=== PATIENT | female | born 1935 | race Caucasian/White ===

== ENCOUNTER 2017-02-15 16:41 | Emergency (ER) | payer MEDICARE, BC ==
[2017-02-15 17:15] VITALS: BP 185/83
--- NOTE | 2017-02-15 17:46 | EDM.PDOC ---
ED HPI ENT - General Chief Complaint: ENT Problem Stated Complaint: SORE THROAT Time Seen by Provider: 02/15/17 17:00 Source of Information: Reports: Patient History Limitations: Reports: No limitations - History of Present Illness INITIAL COMMENTS - FREE TEXT/NARRATIVE: HISTORY AND PHYSICAL: History of present illness: [Patient comes to the emergency room complaining of sore throat, fever and chills. Her symptoms began suddenly yesterday and she feels as though she's worsened today. She's not had headache, earache, runny nose. She's had a mild cough but no sputum production. No body aches, abdominal pain, nausea or vomiting. Bowels and bladder are working normally no dysuria. She's not taken any medications for her symptoms.] Review of systems: As per history of present illness and below otherwise all systems reviewed and negative. Past medical history: As per history of present illness and as reviewed below otherwise noncontributory. Surgical history: As per history of present illness and as reviewed below otherwise noncontributory. Social history: No reported history of drug or alcohol abuse. Family history: As per history of present illness and as reviewed below otherwise noncontributory. Physical exam: HEENT: Atraumatic, normocephalic. She wears hearing aids. TMs are pearly fleming with mild effusions present bilaterally. Nares are patent and without erythema. mucous membranes moist. Posterior oropharynx is brightly erythematous and injected. There is no tonsillar swelling or exudate. No PND. neck supple, nontender. Mildly tender shotty anterior cervical lymph nodes noted. Lungs: Clear to auscultation, breath sounds equal bilaterally. Heart: S1S2, regular rate and rhythm. Abdomen: Soft, nondistended, nontender. Negative for masses or hepatosplenomegaly. Negative for costovertebral tenderness. Pelvis: Stable nontender. Genitourinary: Deferred. Rectal: Deferred. Extremities: Atraumatic, negative for cords or calf pain. No cyanosis or edema. Neurovascular unremarkable. Neuro: Awake, alert, oriented. Cranial nerves II through XII unremarkable.Motor and sensory unremarkable throughout. Exam nonfocal. Diagnostics: [Strep swab-negative.] Impression: [Acute pharyngitis] Plan: [Based on patient's presentation will treat with amoxicillin 500 mg twice a day for 7 days. Recommend she follow up with her PCP next week. Tylenol or ibuprofen as needed for discomfort. She is in agreement with today's plan. all questions are answered and concerns are addressed.] Definitive disposition and diagnosis as appropriate pending reevaluation and review of above. - Related Data Allergies/ADRs: Allergies Allergy/AdvReac Type Severity Reaction Status Date / Time No Known Allergies Allergy Verified 02/15/17 16:49 Home Meds: Home Meds Allopurinol [Zyloprim] 300 mg PO DAILY 08/31/16 [History] Amitriptyline HCl 75 mg PO BEDTIME 08/31/16 [History] Aspirin 81 mg PO BEDTIME 08/31/16 [History] Celecoxib 200 mg PO BEDTIME 08/31/16 [History] Losartan [Cozaar] 100 mg PO DAILY 08/31/16 [History] Verapamil [Calan SR] 180 mg PO DAILY 08/31/16 [History] metFORMIN [Glucophage XR] 500 mg PO BID 08/31/16 [History] Past Medical History - Past Health History Medical/Surgical History: Denies Medical/Surgical History HEENT History: Reports: Hard of hearing, Impaired vision Cardiovascular History: Reports: Hypertension Respiratory History: Reports: Other (see below) Other Respiratory History: pneumonia Gastrointestinal History: Reports: Colon polyp, Irritable bowel syndrome, Pancreatitis Genitourinary History: Reports: Other (see below) Other Genitourinary History: bladder infection 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: Polycystic Ovaries Musculoskeletal History: Reports: Fibromyalgia Endocrine/Metabolic History: Reports: Diabetes, type II - Infectious Disease History Infectious Disease History: Reports: Chicken pox, Measles, Mumps - Past Surgical History HEENT Surgical History: Reports: Cataract surgery, Tonsillectomy Respiratory Surgical History: Reports: None GI Surgical History: Reports: Colonoscopy Other Female Surgeries/Procedures: Removal of ovarian cyst Neurological Surgical History: Reports: Lumbar spine Musculoskeletal Surgical History: Reports: Other (see below) Other Musculoskeletal Surgeries/Procedures:: 2 back surgery Social & Family History - Family History Family Medical History: Noncontributory - Tobacco Use Smoking Status *Q: Never Smoker - Caffeine Use Caffeine Use: Reports: Coffee - Recreational Drug Use Recreational Drug Use: No ED ROS ENT - Review of Systems Review Of Systems: ROS reveals no pertinent complaints other than HPI. ED EXAM, ENT - Physical Exam Exam: See Below Course - Vital Signs Last Recorded V/S: Last Vital Signs Temp 100.3 F 02/15/17 16:50 Pulse 108 H 02/15/17 17:15 Resp 20 02/15/17 16:50 BP 185/83 H 02/15/17 17:15 Pulse Ox 94 L 02/15/17 16:50 - Orders/Labs/Meds Orders: Active Orders 24 hr Category Date Time Status CULTURE STREP A CONFIRMATION [] Stat Lab 02/15/17 17:00 Results STREP SCRN A RAPID W CULT CONF [] Stat Lab 02/15/17 17:00 Results Departure - Departure Time of Disposition: 17:45 Disposition: Home, Self-Care 01 Condition: good Clinical Impression: Pharyngitis Qualifiers: Pharyngitis/tonsillitis etiology: unspecified etiology Qualified Code(s): J02.9 - Acute pharyngitis, unspecified Instructions: Pharyngitis, [id number] Referrals: Devendra Johns DO [Primary Care Provider] - Forms: ED Department Discharge Additional Instructions: The following information is given to patients seen in the emergency department who are being discharged to home. This information is to outline your options for follow-up care. We provide all patients seen in our emergency department with a follow-up referral. The need for follow-up, as well as the timing and circumstances, are variable depending upon the specifics of your emergency department visit. If you don't have a primary care physician on staff, we will provide you with a referral. We always advise you to contact your personal physician following an emergency department visit to inform them of the circumstance of the visit and for follow-up with them and/or the need for any referrals to a consulting specialist. The emergency department will also refer you to a specialist when appropriate. This referral assures that you have the opportunity for follow-up care with a specialist. All of these measure are taken in an effort to provide you with optimal care, which includes your follow-up. Under all circumstances we always encourage you to contact your private physician who remains a resource for coordinating your care. When calling for follow-up care, please make the office aware that this follow-up is from your recent emergency room visit. If for any reason you are refused follow-up, please contact the [facility] emergency department at and asked to speak to the emergency department charge nurse. [facility] [address] [place] [id number] Followup with your primary care provider in 3-4 days. Take Tylenol or ibuprofen as needed for throat discomfort. Take antibiotics as prescribed. Return to the ER as needed and as discussed. - My Orders Last 24 Hours: My Active Orders 02/15/17 17:00 CULTURE STREP A CONFIRMATION [RM] Stat STREP SCRN A RAPID W CULT CONF [RM] Stat - Assessment/Plan Last 24 Hours: My Active Orders 02/15/17 17:00 CULTURE STREP A CONFIRMATION [RM] Stat STREP SCRN A RAPID W CULT CONF [RM] Stat
== END 2017-02-15 17:52 | disposition home or self-care (01) ==
LOC: MW.ED 16:41
DX: J02.9 Acute pharyngitis, unspecified (principal); I10 Essential (primary) hypertension; E11.9 Type 2 diabetes mellitus without complications; Z79.899 Other long term (current) drug therapy; Z98.49 Cataract extraction status, unspecified eye; Z98.890 Other specified postprocedural states
CPT/HCPCS: 87081; 87880; 99283

== ENCOUNTER → 2017-02-19 | Outpatient (CLI) | payer MEDICARE, BC | LOC: MW.CHIM 08:00 | PROVIDERS: ATTEND Internal Medicine | DX: J02.0 Streptococcal pharyngitis (principal); E11.9 Type 2 diabetes mellitus without complications; I10 Essential (primary) hypertension | CPT/HCPCS: G0463 ==

== ENCOUNTER → 2017-04-01 | Outpatient (CLI) | payer MEDICARE, BC | LOC: MW.CHIM 08:00 | PROVIDERS: ATTEND Internal Medicine | DX: F41.9 Anxiety disorder, unspecified (principal); E11.9 Type 2 diabetes mellitus without complications; I10 Essential (primary) hypertension; M54.16 Radiculopathy, lumbar region | CPT/HCPCS: 99214 ==

== ENCOUNTER 2019-03-19 18:06 | Observation (INO) | payer MEDICARE, BC ==
[2019-03-19] MEDS ORDERED: Sodium Chloride 0.9% 1,000 ML IV ONE (18:19)
--- NOTE | 2019-03-19 18:32 | EDM.PDOC ---
ED HPI GENERAL MEDICAL PROBLEM - General Chief Complaint: Trauma Stated Complaint: DIZZY Time Seen by Provider: 03/19/19 18:08 Source of Information: Reports: Patient, Family History Limitations: Reports: No Limitations - History of Present Illness INITIAL COMMENTS - FREE TEXT/NARRATIVE: HISTORY AND PHYSICAL: History of present illness: Patient is an 83-year-old female presents to the ED today after several falls that occurred throughout the day as well as generalized weakness. Patient states she did not hit her head or lose consciousness. Patient states she feels as if her legs are weak. Patient states the neighbor was with her when she had fallen and then helped her get inside her house where she had fallen again. Patient states with both falls she has not hit her head and just kind of "slumped to the ground." Patient states her only complaint at this time is that she feels this generalized weakness and slight dizziness. Patient denies any pain or discomfort at this time. Patient follows with her primary care provider , Dr. Bradley, who she just saw yesterday for an annual physical. Patient states she was diagnosed with a urinary tract infection and was placed on an antibiotic. Patient states she does have chronic left hip pain which is always bothersome to her. She states she is scheduled for replacement of her hip in a few weeks. Patient denies any head or neck pain. Patient denies fever, chills, chest pain, shortness of breath, or cough. Denies headache, neck stiff ness, change in vision, syncope, or near syncope. Denies nausea, vomiting, abdominal pain, diarrhea, constipation, or dysuria. Has not noted any blood in urine or stool. Patient has been eating and drinking appropriately. Review of systems: As per history of present illness and below otherwise all systems reviewed and negative. Past medical history: As per history of present illness and as reviewed below otherwise noncontributory. Surgical history: As per history of present illness and as reviewed below otherwise noncontributory. Social history: See social history for further information Family history: As per history of present illness and as reviewed below otherwise noncontributory. Physical exam: General: Patient is alert, oriented, and in no acute distress. Patient laying comfortably on exam table. Patient does answer questions appropriately but seems a little bit slow to response. HEENT: Atraumatic, normocephalic, pupils equal and reactive bilaterally, negative for conjunctival pallor or scleral icterus, mucous membranes moist, TMs normal bilaterally, throat clear, neck supple, nontender, trachea midline. No drooling or trismus noted. No meningeal signs. No hot potato voice noted. Lungs: Clear to auscultation, breath sounds equal bilaterally, chest nontender. Heart: S1S2, regular rate and rhythm without overt murmur Abdomen: Soft, nondistended, nontender. Negative for masses or hepatosplenomegaly. Negative for costovertebral tenderness. Pelvis: Stable nontender. Genitourinary: Deferred. Rectal: Deferred. Skin: Intact, warm, dry. No lesions or rashes noted. Extremities: Atraumatic, negative for cords or calf pain. Neurovascular unremarkable. Neuro: Awake, alert, oriented. Cranial nerves II through XII unremarkable. Cerebellum unremarkable. Motor and sensory unremarkable throughout. Exam nonfocal. Notes: Trauma alert was called upon arrival to the ED as patient has had falls and is on a baby aspirin. Dr. Jenkins directly involved in patient care. Dr. Pang was consult on patient and will admit to observation. Although patient was called as a trauma alert, she is cleared from a trauma perspective does need to be admitted for medical reasons. Dr. Bradley was informed on the patient but is not formally consulted from a trauma perspective. Voices understanding and is agreeable to plan of care. Denies any further questions or concerns at this time. Diagnostics: CBC, CMP, blood cultures 2, lactate, lipase, troponin, UA, orthostatic vitals, EKG, chest x-ray, head/cervical CT, pelvic x-ray Therapeutics: Saline, Rocephin Impression: Urinary tract infection Leukocytosis Frequent falls Plan: 1. Admit to observation to Dr. Pagn. Definitive disposition and diagnosis as appropriate pending reevaluation and review of above. Left Hip Pain Score (Numeric/FACES): 5 - Related Data Allergies Allergy/AdvReac Type Severity Reaction Status Date / Time No Known Allergies Allergy Verified 02/15/17 16:49 Home Meds: Home Meds Allopurinol [Zyloprim] 300 mg PO DAILY 08/31/16 [History] Amitriptyline HCl 75 mg PO BEDTIME 08/31/16 [History] Aspirin 81 mg PO BEDTIME 08/31/16 [History] Celecoxib 200 mg PO BEDTIME 08/31/16 [History] Losartan [Cozaar] 100 mg PO DAILY 08/31/16 [History] Verapamil [Calan SR] 180 mg PO DAILY 08/31/16 [History] metFORMIN [Glucophage XR] 500 mg PO BID 08/31/16 [History] ALPRAZolam [Alprazolam Odt] 0.25 mg PO DAILY 03/19/19 [History] Cholecalciferol (Vitamin D3) [Vitamin D3] 5,000 unit PO DAILY 03/19/19 [History] Omeprazole 20 mg PO ONETIME 03/19/19 [History] atorvaSTATin [Lipitor] 10 mg PO DAILY 03/19/19 [History] hydroCHLOROthiazide [Hydrochlorothiazide] 25 mg PO DAILY 03/19/19 [History] Past Medical History - Past Health History Medical/Surgical History: Denies Medical/Surgical History HEENT History: Reports: Hard of Hearing, Impaired Vision Cardiovascular History: Reports: Hypertension Respiratory History: Reports: Other (See Below) Other Respiratory History: pneumonia Gastrointestinal History: Reports: Colon Polyp, Irritable Bowel Syndrome, Pancreatitis Genitourinary History: Reports: Other (See Below) Other Genitourinary History: bladder infection 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: Polycystic 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 Musculoskeletal History: Reports: Fibromyalgia Endocrine/Metabolic History: Reports: Diabetes, Type II - Infectious Disease History Infectious Disease History: Reports: Chicken Pox, Measles, Mumps - Past Surgical History HEENT Surgical History: Reports: Cataract Surgery, Tonsillectomy Female Surgical History: Reports: Hysterectomy, Salpingo-Oophorectomy Neurological Surgical History: Reports: Lumbar Spine Musculoskeletal Surgical History: Reports: Other (See Below) Social & Family History - Family History Family Medical History: Noncontributory - Caffeine Use Caffeine Use: Reports: Coffee Review of Systems - Review of Systems Review Of Systems: ROS reveals no pertinent complaints other than HPI. ED EXAM, GENERAL - Physical Exam Exam: See Below (See dictation) Course - Vital Signs Last Recorded V/S: Last Vital Signs Temp 37.0 C 03/19/19 20:00 Pulse 104 H 03/19/19 20:00 Resp 18 03/19/19 19:46 BP 156/80 H 03/19/19 20:00 Pulse Ox 93 L 03/19/19 20:00 Orthostatic Blood Pressure [ 134/56 Standing] Orthostatic Blood Pressure [ 150/68 Sitting] Orthostatic Blood Pressure [ 150/66 Supine] - Orders/Labs/Meds Orders: Active Orders 24 hr Category Date Time Status Patient Status [ADT] Stat ADT 03/19/19 19:49 Active EKG Documentation Completion [RC] STAT Care 03/19/19 18:19 Active Orthostatic Vital Signs [RC] ASDIRECTED Care 03/19/19 18:22 Active CULTURE BLOOD [BC] Stat Lab 03/19/19 19:10 Received CULTURE BLOOD [BC] Stat Lab 03/19/19 19:10 Received CULTURE URINE [RM] Stat Lab 03/19/19 18:19 Received cefTRIAXone [Rocephin in Dextrose,Iso-Osm 1 GM/50 ML] 1 Med 03/19/19 19:45 Ordered gm Premix Bag 1 bag IV ONETIME Blood Culture x2 Reflex Set [OM.PC] Stat Oth 03/19/19 18:23 Ordered Medication Orders Ceftriaxone Sodium/Dextrose 1 (gm/ Premix) 50 mls @ 100 mls/hr IV ONETIME ONE Stop: 03/19/19 20:14 Last Admin: 03/19/19 19:52 Dose: 100 mls/hr Labs: Laboratory Tests 03/19/19 03/19/19 03/19/19 Range/Units 18:19 18:25 18:25 WBC 16.22 H (4.0-11.0) K/uL RBC 3.39 L (4.30-5.90) M/uL Hgb 12.1 (12.0-16.0) g/dL Hct 36.9 (36.0-46.0) % MCV 108.8 H (80.0-98.0) fL MCH 35.7 H (27.0-32.0) pg MCHC 32.8 (31.0-37.0) g/dL RDW Std Deviation 51.1 (28.0-62.0) fl RDW Coeff of Janeen 13 (11.0-15.0) % Plt Count 349 (150-400) K/uL MPV 9.60 (7.40-12.00) fL Neut % (Auto) 79.6 (48.0-80.0) % Lymph % (Auto) 12.1 L (16.0-40.0) % [place] % (Auto) 8.1 (0.0-15.0) % Eos % (Auto) 0.1 (0.0-7.0) % Baso % (Auto) 0.1 (0.0-1.5) % Neut # (Auto) 12.9 H (1.4-5.7) K/uL Lymph # (Auto) 2.0 (0.6-2.4) K/uL [place] # (Auto) 1.3 H (0.0-0.8) K/uL Eos # (Auto) 0.0 (0.0-0.7) K/uL Baso # (Auto) 0.0 (0.0-0.1) K/uL Nucleated RBC % 0.0 /100WBC Nucleated RBCs # 0 K/uL Lactate (0.20-2.00) mmol/L Sodium 132 L (136-145) mmol/L Potassium 3.8 (3.5-5.1) mmol/L Chloride 93 L (98-107) mmol/L Carbon Dioxide 26.8 (21.0-32.0) mmol/L BUN 39 H (7.0-18.0) mg/dL Creatinine 1.5 H (0.6-1.0) mg/dL Est Cr Clr Drug Dosing TNP Estimated GFR (MDRD) 33.3 ml/min Glucose 208 H (74-106) mg/dL Calcium 9.4 (8.5-10.1) mg/dL Total Bilirubin 0.2 (0.2-1.0) mg/dL AST 15 (15-37) IU/L ALT 25 (14-63) IU/L Alkaline Phosphatase 162 H (46-116) U/L Creatine Kinase 72 (26-308) U/L Troponin I < 0.050 (0.000-0.056) ng/mL Total Protein 8.2 (6.4-8.2) g/dL Albumin 3.3 L (3.4-5.0) g/dL Globulin 4.9 H (2.6-4.0) g/dL Albumin/Globulin Ratio 0.7 L (0.9-1.6) Lipase 228 (73-393) U/L Urine Color YELLOW Urine Appearance CLEAR Urine pH 5.5 (5.0-8.0) Ur Specific [place] <= 1.005 (1.001-1.035) Urine Protein NEGATIVE (NEGATIVE) mg/dL Urine Glucose (UA) NEGATIVE (NEGATIVE) mg/dL Urine Ketones NEGATIVE (NEGATIVE) mg/dL Urine Occult Blood NEGATIVE (NEGATIVE) Urine Nitrite NEGATIVE (NEGATIVE) Urine Bilirubin NEGATIVE (NEGATIVE) Urine Urobilinogen 0.2 (<2.0) EU/dL Ur Leukocyte Esterase MODERATE H (NEGATIVE) Urine RBC 1-3 (0-2/HPF) Urine WBC 12-30 (0-5/HPF) Ur Epithelial Cells OCCASIONAL (NONE-FEW) Urine Bacteria FEW (NEGATIVE) Urine Mucus FEW (NONE-MOD) 03/19/19 Range/Units 18:25 WBC (4.0-11.0) K/uL RBC (4.30-5.90) M/uL Hgb (12.0-16.0) g/dL Hct (36.0-46.0) % MCV (80.0-98.0) fL MCH (27.0-32.0) pg MCHC (31.0-37.0) g/dL RDW Std Deviation (28.0-62.0) fl RDW Coeff of Janeen (11.0-15.0) % Plt Count (150-400) K/uL MPV (7.40-12.00) fL Neut % (Auto) (48.0-80.0) % Lymph % (Auto) (16.0-40.0) % [place] % (Auto) (0.0-15.0) % Eos % (Auto) (0.0-7.0) % Baso % (Auto) (0.0-1.5) % Neut # (Auto) (1.4-5.7) K/uL Lymph # (Auto) (0.6-2.4) K/uL [place] # (Auto) (0.0-0.8) K/uL Eos # (Auto) (0.0-0.7) K/uL Baso # (Auto) (0.0-0.1) K/uL Nucleated RBC % /100WBC Nucleated RBCs # K/uL Lactate 1.7 (0.20-2.00) mmol/L Sodium (136-145) mmol/L Potassium (3.5-5.1) mmol/L Chloride (98-107) mmol/L Carbon Dioxide (21.0-32.0) mmol/L BUN (7.0-18.0) mg/dL Creatinine (0.6-1.0) mg/dL Est Cr Clr Drug Dosing Estimated GFR (MDRD) ml/min Glucose (74-106) mg/dL Calcium (8.5-10.1) mg/dL Total Bilirubin (0.2-1.0) mg/dL AST (15-37) IU/L ALT (14-63) IU/L Alkaline Phosphatase (46-116) U/L Creatine Kinase (26-308) U/L Troponin I (0.000-0.056) ng/mL Total Protein (6.4-8.2) g/dL Albumin (3.4-5.0) g/dL Globulin (2.6-4.0) g/dL Albumin/Globulin Ratio (0.9-1.6) Lipase (73-393) U/L Urine Color Urine Appearance Urine pH (5.0-8.0) Ur Specific [place] (1.001-1.035) Urine Protein (NEGATIVE) mg/dL Urine Glucose (UA) (NEGATIVE) mg/dL Urine Ketones (NEGATIVE) mg/dL Urine Occult Blood (NEGATIVE) Urine Nitrite (NEGATIVE) Urine Bilirubin (NEGATIVE) Urine Urobilinogen (<2.0) EU/dL Ur Leukocyte Esterase (NEGATIVE) Urine RBC (0-2/HPF) Urine WBC (0-5/HPF) Ur Epithelial Cells (NONE-FEW) Urine Bacteria (NEGATIVE) Urine Mucus (NONE-MOD) Meds: Medications Generic Name Dose Route Start Last Admin Trade Name Freq PRN Reason Stop Dose Admin Ceftriaxone Sodium/Dextrose 1 50 mls @ 100 mls/hr 03/19/19 19:45 03/19/19 19: 52 gm/ Premix IV 03/19/19 20:14 100 mls/hr ONETIME ONE Administration Discontinued Medications Generic Name Dose Route Start Last Admin Trade Name Freq PRN Reason Stop Dose Admin Sodium Chloride 1,000 mls @ 999 mls/hr 03/19/19 18:19 03/19/19 18:53 Normal Saline IV 03/19/19 19:19 999 mls/hr BOLUS ONE Administration Departure - Departure Time of Disposition: 20:04 Disposition: Refer to Observation Clinical Impression: Frequent falls Urinary tract infection Qualifiers: Urinary tract infection type: acute cystitis Hematuria presence: with hematuria Qualified Code(s): N30.01 - Acute cystitis with hematuria Leukocytosis Qualifiers: Leukocytosis type: other Qualified Code(s): D72.828 - Other elevated white blood cell count - Discharge Information - My Orders Last 24 Hours: My Active Orders 03/19/19 18:19 EKG Documentation Completion [RC] STAT CULTURE URINE [RM] Stat 03/19/19 18:22 Orthostatic Vital Signs [RC] ASDIRECTED 03/19/19 18:23 Blood Culture x2 Reflex Set [OM.PC] Stat 03/19/19 19:10 CULTURE BLOOD [BC] Stat CULTURE BLOOD [BC] Stat 03/19/19 19:45 cefTRIAXone [Rocephin in Dextrose,Iso-Osm 1 GM/50 ML] 1 gm Premix Bag 1 bag IV ONETIME - Assessment/Plan Last 24 Hours: My Active Orders 03/19/19 18:19 EKG Documentation Completion [RC] STAT CULTURE URINE [RM] Stat 03/19/19 18:22 Orthostatic Vital Signs [RC] ASDIRECTED 03/19/19 18:23 Blood Culture x2 Reflex Set [OM.PC] Stat 03/19/19 19:10 CULTURE BLOOD [BC] Stat CULTURE BLOOD [BC] Stat 03/19/19 19:45 cefTRIAXone [Rocephin in Dextrose,Iso-Osm 1 GM/50 ML] 1 gm Premix Bag 1 bag IV ONETIME
--- NOTE | 2019-03-19 18:57 | CT ---
INDICATION: Found down, probable LOC confusion TECHNIQUE: CT cervical spine without contrast. COMPARISON: None FINDINGS: Vertebral alignment: Alignment is normal. Vertebrae: There are no fractures or suspicious bony lesions. Discs and facet joints: Mild multilevel degenerative changes. Extraspinal findings: Prevertebral soft tissues, visualized airway, and visualized lungs are unremarkable. Calcified pleural plaques involving the lung apices. IMPRESSION: No evidence of acute cervical spine trauma. Mild multilevel degenerative changes. Bilateral calcified apical pleural plaques. Dictated by Simone Vallejo MD @ 03/19/2019 6:55:46 PM Please note that all CT scans at this facility use dose modulation, iterative reconstruction, and/or weight-based dosing when appropriate to reduce radiation dose to as low as reasonably achievable. Dictated by: Simone Vallejo MD @ 03/19/2019 18:55:51 (Electronically Signed)
--- NOTE | 2019-03-19 19:01 | CT ---
INDICATION: LOC, confusion TECHNIQUE: CT head without contrast. COMPARISON: None FINDINGS: CSF spaces: Within normal limits for age. Brain parenchyma: The fleming-white differentiation is normal. No sign of mass, hemorrhage, or midline shift. Periventricular white matter changes consistent chronic microvascular disease. Diffuse volume loss. Skull base and calvarium: The visualized paranasal sinuses and mastoid air cells demonstrate no acute or significant findings. The visualized orbits are grossly unremarkable. No skull fractures. IMPRESSION: No acute intracranial abnormality including no evidence of acute intracranial trauma. Periventricular white matter changes consistent chronic microvascular disease. Diffuse volume loss. Dictated by Simone Vallejo MD @ 03/19/2019 6:58:56 PM Please note that all CT scans at this facility use dose modulation, iterative reconstruction, and/or weight-based dosing when appropriate to reduce radiation dose to as low as reasonably achievable. Dictated by: Simone Vallejo MD @ 03/19/2019 18:59:27 (Electronically Signed)
--- NOTE | 2019-03-19 19:04 | CR ---
INDICATION: Left hip pain following fall TECHNIQUE: AP pelvis COMPARISON: 09/19/2018 FINDINGS: Bones: Alignment is normal. No fractures or bone lesions. Joint spaces: Significant narrowing and degenerative changes left hip joint with increase narrowing compared to 09/19/2018. Moderate degenerative changes right hip joint. Soft tissues: Unremarkable. IMPRESSION: No evidence of acute trauma. Significant narrowing degenerative changes left hip joint with increased narrowing compared to 09/19/2018. Dictated by Simone Vallejo MD @ Mar 19 2019 6:59PM Signed by Dr. Simone Vallejo @ Mar 19 2019 7:03PM
--- NOTE | 2019-03-19 19:06 | CR ---
INDICATION: fall TECHNIQUE: Chest 1 view. COMPARISON: 03/17/19 FINDINGS: Cardiovascular and mediastinum: Heart size and vasculature are normal in caliber and appearance. Mediastinum is within normal limits. Lungs and pleural space: Lungs are clear. No sign of infiltrate or mass. No sign of pleural effusion. No pneumothorax. Bones and soft tissues: No significant findings. IMPRESSION: Unremarkable chest. Dictated by: Simone Vallejo MD @ 03/19/2019 19:05:52 (Electronically Signed)
[2019-03-19 19:25] LABS: CHLORIDE,CL 93 mmol/L (98-107); SODIUM,NA 132 mmol/L (136-145)
[2019-03-19] MEDS ORDERED: cefTRIAXone 1 GM in Premix Bag 1 BAG IV ONE (19:45)
--- NOTE | 2019-03-19 19:53 | PCM.SN ---
- Free Text/Narrative Note: This is Dr. Jenkins dictating addendum note as this case was called as a trauma alert due to a fall with a patient taking baby aspirin. From a trauma perspective this patient has been cleared but we are still informed the trauma surgeon Dr. Khalil about this case although the patient needs to be admitted medically for her frequent falls and the etiology of that. She has a UTI she has generalized weakness in both clinical and laboratory dehydration and needs IV fluids and further evaluation of her frequent falls and her infectious source. Dr. Pang was contacted by the physician assistant manager trainee and he is accepting the patient for observation admission but would like Dr. Khalil to be informed of this case but not on formal consult. We will give him a call and inform him of this and change the admission from a traumatic injury admission to frequent falls/medical admission.
[2019-03-19] MEDS ORDERED: Sodium Chloride 0.9% 10 ML Syringe FLUSH PRN (22:08)
[2019-03-19] MEDS ORDERED: Sodium Chloride 0.9% 2.5 ML Syringe FLUSH PRN (22:08)
[2019-03-19] MEDS: Acetaminophen 325 MG Tab PO PRN (22:27)
--- NOTE | 2019-03-19 23:13 | PCM.HP ---
H&P History of Present Illness - General Date of Service: 03/19/19 Admit Problem/Dx: Admission Diagnosis/Problem Admission Diagnosis/Problem Falls - History of Present Illness Initial Comments - Free Text/Narative: 83 yo female with pmh of HTN and DM who presented to the ED with generalized weakness and dizziness. Patient reports have multiple falls. She also report dysuria. She denies loosing conciousness or hitting her head. Left Hip Pain Score (Numeric/FACES): 7 - Related Data Allergies/Adverse Reactions: Allergies Allergy/AdvReac Type Severity Reaction Status Date / Time No Known Allergies Allergy Verified 02/15/17 16:49 Home Medications: Home Meds Allopurinol [Zyloprim] 300 mg PO DAILY 08/31/16 [History] Amitriptyline HCl 75 mg PO BEDTIME 08/31/16 [History] Aspirin 81 mg PO BEDTIME 08/31/16 [History] Celecoxib 200 mg PO BEDTIME 08/31/16 [History] Losartan [Cozaar] 100 mg PO DAILY 08/31/16 [History] Verapamil [Calan SR] 180 mg PO DAILY 08/31/16 [History] metFORMIN [Glucophage XR] 500 mg PO BID 08/31/16 [History] ALPRAZolam [Alprazolam Odt] 0.25 mg PO DAILY 03/19/19 [History] Cholecalciferol (Vitamin D3) [Vitamin D3] 5,000 unit PO DAILY 03/19/19 [History] Omeprazole 20 mg PO ONETIME 03/19/19 [History] atorvaSTATin [Lipitor] 10 mg PO DAILY 03/19/19 [History] hydroCHLOROthiazide [Hydrochlorothiazide] 25 mg PO DAILY 03/19/19 [History] cephALEXin [Keflex] 500 mg PO BID #14 cap 03/22/19 [Rx] Past Medical History - Past Health History Medical/Surgical History: Denies Medical/Surgical History HEENT History: Reports: Hard of Hearing, Impaired Vision Cardiovascular History: Reports: Hypertension Respiratory History: Reports: Other (See Below) Other Respiratory History: pneumonia Gastrointestinal History: Reports: Colon Polyp, Irritable Bowel Syndrome, Pancreatitis Genitourinary History: Reports: Other (See Below) Other Genitourinary History: bladder infection SIGN BUILDER History: Reports: Polycystic Ovaries Musculoskeletal History: Reports: Fibromyalgia Endocrine/Metabolic History: Reports: Diabetes, Type II Immunologic History: Reports: None Oncologic (Cancer) History: Reports: None - Infectious Disease History Infectious Disease History: Reports: Chicken Pox, Measles, Mumps - Past Surgical History Head Surgeries/Procedures: Reports: None HEENT Surgical History: Reports: Cataract Surgery, Tonsillectomy Female Surgical History: Reports: Cystectomy, Hysterectomy, Salpingo- Oophorectomy Neurological Surgical History: Reports: Lumbar Spine Musculoskeletal Surgical History: Reports: Other (See Below) Social & Family History - Family History Family Medical History: Noncontributory - Tobacco Use Smoking Status *Q: Never Smoker Second Hand Smoke Exposure: No - Caffeine Use Caffeine Use: Reports: Coffee, Soda - Recreational Drug Use Recreational Drug Use: No H&P Review of Systems - Review of Systems: Review Of Systems: ROS reveals no pertinent complaints other than HPI. Exam - Exam Exam: See Below - Vital Signs Vital Signs: Last Vital Signs Temp 37.4 C 03/19/19 21:08 Pulse 116 H 03/19/19 21:08 Resp 16 03/19/19 21:08 BP 167/89 H 03/19/19 21:08 Pulse Ox 93 L 03/19/19 21:08 Orthostatic Blood Pressure [ 134/56 Standing] Orthostatic Blood Pressure [ 150/68 Sitting] Orthostatic Blood Pressure [ 150/66 Supine] Weight: 61 kg - Exam General: Alert, Oriented HEENT: Mucosa Moist & [place] Neck: Supple, Trachea Midline Lungs: Clear to Auscultation, Normal Respiratory Effort Cardiovascular: Regular Rate, Regular Rhythm GI/Abdominal Exam: Normal Bowel Sounds, Soft, Non-Tender Back Exam: Normal Inspection Extremities: Non-Tender, No Pedal Edema - Patient Data Lab Results Last 24 hrs: Laboratory Results - last 24 hr 03/19/19 03/19/19 03/19/19 Range/Units 18:19 18:25 18:25 WBC 16.22 H (4.0-11.0) K/uL RBC 3.39 L (4.30-5.90) M/uL Hgb 12.1 (12.0-16.0) g/dL Hct 36.9 (36.0-46.0) % MCV 108.8 H (80.0-98.0) fL MCH 35.7 H (27.0-32.0) pg MCHC 32.8 (31.0-37.0) g/dL RDW Std Deviation 51.1 (28.0-62.0) fl RDW Coeff of Janeen 13 (11.0-15.0) % Plt Count 349 (150-400) K/uL MPV 9.60 (7.40-12.00) fL Neut % (Auto) 79.6 (48.0-80.0) % Lymph % (Auto) 12.1 L (16.0-40.0) % [place] % (Auto) 8.1 (0.0-15.0) % Eos % (Auto) 0.1 (0.0-7.0) % Baso % (Auto) 0.1 (0.0-1.5) % Neut # (Auto) 12.9 H (1.4-5.7) K/uL Lymph # (Auto) 2.0 (0.6-2.4) K/uL [place] # (Auto) 1.3 H (0.0-0.8) K/uL Eos # (Auto) 0.0 (0.0-0.7) K/uL Baso # (Auto) 0.0 (0.0-0.1) K/uL Nucleated RBC % 0.0 /100WBC Nucleated RBCs # 0 K/uL Lactate (0.20-2.00) mmol/L Sodium 132 L (136-145) mmol/L Potassium 3.8 (3.5-5.1) mmol/L Chloride 93 L (98-107) mmol/L Carbon Dioxide 26.8 (21.0-32.0) mmol/L BUN 39 H (7.0-18.0) mg/dL Creatinine 1.5 H (0.6-1.0) mg/dL Est Cr Clr Drug Dosing TNP Estimated GFR (MDRD) 33.3 ml/min Glucose 208 H (74-106) mg/dL Calcium 9.4 (8.5-10.1) mg/dL Total Bilirubin 0.2 (0.2-1.0) mg/dL AST 15 (15-37) IU/L ALT 25 (14-63) IU/L Alkaline Phosphatase 162 H (46-116) U/L Creatine Kinase 72 (26-308) U/L Troponin I < 0.050 (0.000-0.056) ng/mL Total Protein 8.2 (6.4-8.2) g/dL Albumin 3.3 L (3.4-5.0) g/dL Globulin 4.9 H (2.6-4.0) g/dL Albumin/Globulin Ratio 0.7 L (0.9-1.6) Lipase 228 (73-393) U/L Urine Color YELLOW Urine Appearance CLEAR Urine pH 5.5 (5.0-8.0) Ur Specific [place] <= 1.005 (1.001-1.035) Urine Protein NEGATIVE (NEGATIVE) mg/dL Urine Glucose (UA) NEGATIVE (NEGATIVE) mg/dL Urine Ketones NEGATIVE (NEGATIVE) mg/dL Urine Occult Blood NEGATIVE (NEGATIVE) Urine Nitrite NEGATIVE (NEGATIVE) Urine Bilirubin NEGATIVE (NEGATIVE) Urine Urobilinogen 0.2 (<2.0) EU/dL Ur Leukocyte Esterase MODERATE H (NEGATIVE) Urine RBC 1-3 (0-2/HPF) Urine WBC 12-30 (0-5/HPF) Ur Epithelial Cells OCCASIONAL (NONE-FEW) Urine Bacteria FEW (NEGATIVE) Urine Mucus FEW (NONE-MOD) 03/19/19 Range/Units 18:25 WBC (4.0-11.0) K/uL RBC (4.30-5.90) M/uL Hgb (12.0-16.0) g/dL Hct (36.0-46.0) % MCV (80.0-98.0) fL MCH (27.0-32.0) pg MCHC (31.0-37.0) g/dL RDW Std Deviation (28.0-62.0) fl RDW Coeff of Janeen (11.0-15.0) % Plt Count (150-400) K/uL MPV (7.40-12.00) fL Neut % (Auto) (48.0-80.0) % Lymph % (Auto) (16.0-40.0) % [place] % (Auto) (0.0-15.0) % Eos % (Auto) (0.0-7.0) % Baso % (Auto) (0.0-1.5) % Neut # (Auto) (1.4-5.7) K/uL Lymph # (Auto) (0.6-2.4) K/uL [place] # (Auto) (0.0-0.8) K/uL Eos # (Auto) (0.0-0.7) K/uL Baso # (Auto) (0.0-0.1) K/uL Nucleated RBC % /100WBC Nucleated RBCs # K/uL Lactate 1.7 (0.20-2.00) mmol/L Sodium (136-145) mmol/L Potassium (3.5-5.1) mmol/L Chloride (98-107) mmol/L Carbon Dioxide (21.0-32.0) mmol/L BUN (7.0-18.0) mg/dL Creatinine (0.6-1.0) mg/dL Est Cr Clr Drug Dosing Estimated GFR (MDRD) ml/min Glucose (74-106) mg/dL Calcium (8.5-10.1) mg/dL Total Bilirubin (0.2-1.0) mg/dL AST (15-37) IU/L ALT (14-63) IU/L Alkaline Phosphatase (46-116) U/L Creatine Kinase (26-308) U/L Troponin I (0.000-0.056) ng/mL Total Protein (6.4-8.2) g/dL Albumin (3.4-5.0) g/dL Globulin (2.6-4.0) g/dL Albumin/Globulin Ratio (0.9-1.6) Lipase (73-393) U/L Urine Color Urine Appearance Urine pH (5.0-8.0) Ur Specific [place] (1.001-1.035) Urine Protein (NEGATIVE) mg/dL Urine Glucose (UA) (NEGATIVE) mg/dL Urine Ketones (NEGATIVE) mg/dL Urine Occult Blood (NEGATIVE) Urine Nitrite (NEGATIVE) Urine Bilirubin (NEGATIVE) Urine Urobilinogen (<2.0) EU/dL Ur Leukocyte Esterase (NEGATIVE) Urine RBC (0-2/HPF) Urine WBC (0-5/HPF) Ur Epithelial Cells (NONE-FEW) Urine Bacteria (NEGATIVE) Urine Mucus (NONE-MOD) Result Diagrams: 03/22/19 06:11 03/22/19 06:11 Problem List Initiated/Reviewed/Updated: Yes Orders Last 24hrs: Active Orders 24 hr Category Date Time Status Patient Status [ADT] Stat ADT 03/19/19 19:49 Active Accu Check [Blood Glucose Check, Bedside] [RC] TIDAC Care 03/19/19 22:10 Active EKG Documentation Completion [RC] STAT Care 03/19/19 18:19 Active Orthostatic Vital Signs [RC] ASDIRECTED Care 03/19/19 18:22 Active Oxygen Therapy, ED [RC] ASDIRECTED Care 03/19/19 22:09 Active Telemetry Monitoring [Cardiac Monitoring] [RC] Q8H Care 03/19/19 22:15 Active ADA Diabetic [[place] [employer] Diet] [DIET Diet 03/20/19 Breakfast Active ] BMP [BASIC METABOLIC PANEL,BMP] [CHEM] Routine Lab 03/20/19 05:00 Ordered CBC WITH AUTO DIFF [HEME] Routine Lab 03/20/19 05:00 Ordered CULTURE BLOOD [BC] Stat Lab 03/19/19 19:10 Received CULTURE BLOOD [BC] Stat Lab 03/19/19 19:10 Received CULTURE URINE [RM] Stat Lab 03/19/19 18:19 Received Acetaminophen [Tylenol] Med 03/19/19 22:14 Active 650 mg PO Q6H PRN Allopurinol [Zyloprim] Med 03/20/19 09:00 Ordered 300 mg PO DAILY Amitriptyline HCl [Amitriptyline HCl] Med 03/20/19 21:00 Ordered 75 mg PO BEDTIME Aspirin Med 03/20/19 21:00 Ordered 81 mg PO BEDTIME Celecoxib [Celecoxib] Med 03/20/19 21:00 Ordered 200 mg PO BEDTIME Insulin Aspart [NovoLOG] Med 03/20/19 07:30 Active See Protocol SUBCUT TIDAC Losartan Med 03/20/19 09:00 Ordered 100 mg PO DAILY Omeprazole Med 03/19/19 23:15 Ordered 20 mg PO ONETIME Sodium Chloride 0.9% [Saline Flush] Med 03/19/19 22:08 Active 10 ml FLUSH ASDIRECTED PRN Sodium Chloride 0.9% [Saline Flush] Med 03/19/19 22:08 Active 2.5 ml FLUSH ASDIRECTED PRN Verapamil [Calan SR] Med 03/20/19 09:00 Ordered 180 mg PO DAILY atorvaSTATin [Lipitor] Med 03/20/19 09:00 Ordered 10 mg PO DAILY cefTRIAXone [Rocephin] 1 gm Med 05/10/19 20:00 Active Sodium Chloride 0.9% [Normal Saline] 50 ml IV Q24H hydroCHLOROthiazide Med 03/20/19 09:00 Ordered 25 mg PO DAILY metFORMIN [Glucophage XR] Med 03/20/19 09:00 Ordered 500 mg PO BID Blood Culture x2 Reflex Set [OM.PC] Stat Oth 03/19/19 18:23 Ordered Saline Lock Insert [OM.PC] Routine Oth 03/19/19 22:08 Ordered Medication Orders Acetaminophen (Tylenol) 650 mg PO Q6H PRN PRN Reason: Pain Last Admin: 03/19/19 22:27 Dose: 650 mg Allopurinol (Zyloprim) 300 mg PO DAILY [facility] Aspirin (Aspirin) 81 mg PO BEDTIME [facility] Atorvastatin Calcium (Lipitor) 10 mg PO DAILY [facility] Hydrochlorothiazide (Hydrochlorothiazide) 25 mg PO DAILY [facility] Ceftriaxone Sodium 1 gm/ (Sodium Chloride) 50 mls @ 100 mls/hr IV Q24H [facility] Insulin Aspart (Novolog) 0 unit SUBCUT TIDAC [facility]; Protocol Metformin HCl (Glucophage Xr) 500 mg PO BID [facility] Non-Formulary Medication (Amitriptyline Hcl [Amitriptyline Hcl]) 75 mg PO BEDTIME [facility] Non-Formulary Medication (Celecoxib [Celecoxib]) 200 mg PO BEDTIME [facility] Non-Formulary Medication (Losartan) 100 mg PO DAILY [facility] Omeprazole (Omeprazole) 20 mg PO ONETIME [facility] Sodium Chloride (Saline Flush) 10 ml FLUSH ASDIRECTED PRN PRN Reason: Keep Vein Open Sodium Chloride (Saline Flush) 2.5 ml FLUSH ASDIRECTED PRN PRN Reason: Keep Vein Open Verapamil HCl (Calan Sr) 180 mg PO DAILY [facility] Assessment/Plan Comment:: 83 yo female admitted for UTI with falls. We will treat with IV Rocephin and consult PT.
[2019-03-19] MEDS ORDERED: Omeprazole 20 MG Cap.CR PO SCH (23:15)
[2019-03-20] MEDS: Sodium Chloride 0.9% 1,000 ML IV SCH ×2 (00:44→13:59)
[2019-03-20] MEDS: Acetaminophen 325 MG Tab PO PRN ×3 (06:22→20:33)
[2019-03-20] MEDS: Insulin Aspart 100 Units/ML 3 ML Pen SUBCUT SCH ×3 (06:37→16:56)
--- NOTE | 2019-03-20 08:19 | PCM.PN ---
- General Info Date of Service: 03/20/19 Admission Dx/Problem (Free Text): Admission Diagnosis/Problem Admission Diagnosis/Problem Falls, UTI, confusion Subjective Update: Feeling improved today. No abdominal pain. No chest pain or shortness of breath. L hip pain, which is at baseline. CACHORRO planned for beginning of April. Functional Status: Reports: Pain Controlled, Tolerating Diet, Ambulating (with assistance, gait unsteady), Urinating - Review of Systems General: Reports: Weakness (generalized.). Denies: Fever HEENT: Reports: No Symptoms. Denies: Headaches, Sore Throat Pulmonary: Reports: No Symptoms. Denies: Shortness of Breath Cardiovascular: Reports: No Symptoms. Denies: Chest Pain Gastrointestinal: Reports: No Symptoms. Denies: Abdominal Pain, Nausea, Vomiting Musculoskeletal: Reports: No Symptoms Neurological: Reports: Confusion (per family.), Gait Disturbance (unsteadiness) Psychiatric: Reports: No Symptoms - Patient Data Vitals - Most Recent: Last Vital Signs Temp 98.2 F 03/20/19 07:44 Pulse 99 03/20/19 07:44 Resp 16 03/20/19 07:44 BP 130/65 03/20/19 07:44 Pulse Ox 93 L 03/20/19 07:44 Orthostatic Blood Pressure [ 134/56 Standing] Orthostatic Blood Pressure [ 150/68 Sitting] Orthostatic Blood Pressure [ 150/66 Supine] Weight - Most Recent: 61 kg I&O - Last 24 Hours: Intake & Output 03/19/19 03/20/19 03/20/19 22:59 06:59 14:59 Intake Total 350 Output Total 540 Balance -190 Lab Results Last 24 Hours: Laboratory Results - last 24 hr 03/19/19 03/19/19 03/19/19 Range/Units 18:19 18:25 18:25 WBC 16.22 H (4.0-11.0) K/uL RBC 3.39 L (4.30-5.90) M/uL Hgb 12.1 (12.0-16.0) g/dL Hct 36.9 (36.0-46.0) % MCV 108.8 H (80.0-98.0) fL MCH 35.7 H (27.0-32.0) pg MCHC 32.8 (31.0-37.0) g/dL RDW Std Deviation 51.1 (28.0-62.0) fl RDW Coeff of Janeen 13 (11.0-15.0) % Plt Count 349 (150-400) K/uL MPV 9.60 (7.40-12.00) fL Neut % (Auto) 79.6 (48.0-80.0) % Lymph % (Auto) 12.1 L (16.0-40.0) % [place] % (Auto) 8.1 (0.0-15.0) % Eos % (Auto) 0.1 (0.0-7.0) % Baso % (Auto) 0.1 (0.0-1.5) % Neut # (Auto) 12.9 H (1.4-5.7) K/uL Lymph # (Auto) 2.0 (0.6-2.4) K/uL [place] # (Auto) 1.3 H (0.0-0.8) K/uL Eos # (Auto) 0.0 (0.0-0.7) K/uL Baso # (Auto) 0.0 (0.0-0.1) K/uL Nucleated RBC % 0.0 /100WBC Nucleated RBCs # 0 K/uL Lactate (0.20-2.00) mmol/L Sodium 132 L (136-145) mmol/L Potassium 3.8 (3.5-5.1) mmol/L Chloride 93 L (98-107) mmol/L Carbon Dioxide 26.8 (21.0-32.0) mmol/L BUN 39 H (7.0-18.0) mg/dL Creatinine 1.5 H (0.6-1.0) mg/dL Est Cr Clr Drug Dosing TNP Estimated GFR (MDRD) 33.3 ml/min Glucose 208 H (74-106) mg/dL POC Glucose (60-110) mg/dL Calcium 9.4 (8.5-10.1) mg/dL Total Bilirubin 0.2 (0.2-1.0) mg/dL AST 15 (15-37) IU/L ALT 25 (14-63) IU/L Alkaline Phosphatase 162 H (46-116) U/L Creatine Kinase 72 (26-308) U/L Troponin I < 0.050 (0.000-0.056) ng/mL Total Protein 8.2 (6.4-8.2) g/dL Albumin 3.3 L (3.4-5.0) g/dL Globulin 4.9 H (2.6-4.0) g/dL Albumin/Globulin Ratio 0.7 L (0.9-1.6) Lipase 228 (73-393) U/L Urine Color YELLOW Urine Appearance CLEAR Urine pH 5.5 (5.0-8.0) Ur Specific [place] <= 1.005 (1.001-1.035) Urine Protein NEGATIVE (NEGATIVE) mg/dL Urine Glucose (UA) NEGATIVE (NEGATIVE) mg/dL Urine Ketones NEGATIVE (NEGATIVE) mg/dL Urine Occult Blood NEGATIVE (NEGATIVE) Urine Nitrite NEGATIVE (NEGATIVE) Urine Bilirubin NEGATIVE (NEGATIVE) Urine Urobilinogen 0.2 (<2.0) EU/dL Ur Leukocyte Esterase MODERATE H (NEGATIVE) Urine RBC 1-3 (0-2/HPF) Urine WBC 12-30 (0-5/HPF) Ur Epithelial Cells OCCASIONAL (NONE-FEW) Urine Bacteria FEW (NEGATIVE) Urine Mucus FEW (NONE-MOD) 03/19/19 03/20/19 03/20/19 Range/Units 18:25 04:47 05:16 WBC 12.59 H (4.0-11.0) K/uL RBC 3.06 L (4.30-5.90) M/uL Hgb 10.7 L (12.0-16.0) g/dL Hct 32.7 L (36.0-46.0) % MCV 106.9 H (80.0-98.0) fL MCH 35.0 H (27.0-32.0) pg MCHC 32.7 (31.0-37.0) g/dL RDW Std Deviation 50.1 (28.0-62.0) fl RDW Coeff of Janeen 13 (11.0-15.0) % Plt Count 337 (150-400) K/uL MPV 9.50 (7.40-12.00) fL Neut % (Auto) 74.6 (48.0-80.0) % Lymph % (Auto) 14.5 L (16.0-40.0) % [place] % (Auto) 10.5 (0.0-15.0) % Eos % (Auto) 0.2 (0.0-7.0) % Baso % (Auto) 0.2 (0.0-1.5) % Neut # (Auto) 9.4 H (1.4-5.7) K/uL Lymph # (Auto) 1.8 (0.6-2.4) K/uL [place] # (Auto) 1.3 H (0.0-0.8) K/uL Eos # (Auto) 0.0 (0.0-0.7) K/uL Baso # (Auto) 0.0 (0.0-0.1) K/uL Nucleated RBC % 0.0 /100WBC Nucleated RBCs # 0 K/uL Lactate 1.7 (0.20-2.00) mmol/L Sodium (136-145) mmol/L Potassium (3.5-5.1) mmol/L Chloride (98-107) mmol/L Carbon Dioxide (21.0-32.0) mmol/L BUN (7.0-18.0) mg/dL Creatinine (0.6-1.0) mg/dL Est Cr Clr Drug Dosing Estimated GFR (MDRD) ml/min Glucose (74-106) mg/dL POC Glucose 139 H (60-110) mg/dL Calcium (8.5-10.1) mg/dL Total Bilirubin (0.2-1.0) mg/dL AST (15-37) IU/L ALT (14-63) IU/L Alkaline Phosphatase (46-116) U/L Creatine Kinase (26-308) U/L Troponin I (0.000-0.056) ng/mL Total Protein (6.4-8.2) g/dL Albumin (3.4-5.0) g/dL Globulin (2.6-4.0) g/dL Albumin/Globulin Ratio (0.9-1.6) Lipase (73-393) U/L Urine Color Urine Appearance Urine pH (5.0-8.0) Ur Specific [place] (1.001-1.035) Urine Protein (NEGATIVE) mg/dL Urine Glucose (UA) (NEGATIVE) mg/dL Urine Ketones (NEGATIVE) mg/dL Urine Occult Blood (NEGATIVE) Urine Nitrite (NEGATIVE) Urine Bilirubin (NEGATIVE) Urine Urobilinogen (<2.0) EU/dL Ur Leukocyte Esterase (NEGATIVE) Urine RBC (0-2/HPF) Urine WBC (0-5/HPF) Ur Epithelial Cells (NONE-FEW) Urine Bacteria (NEGATIVE) Urine Mucus (NONE-MOD) 03/20/19 Range/Units 05:16 WBC (4.0-11.0) K/uL RBC (4.30-5.90) M/uL Hgb (12.0-16.0) g/dL Hct (36.0-46.0) % MCV (80.0-98.0) fL MCH (27.0-32.0) pg MCHC (31.0-37.0) g/dL RDW Std Deviation (28.0-62.0) fl RDW Coeff of [place]en (11.0-15.0) % Plt Count (150-400) K/uL MPV (7.40-12.00) fL Neut % (Auto) (48.0-80.0) % Lymph % (Auto) (16.0-40.0) % [place] % (Auto) (0.0-15.0) % Eos % (Auto) (0.0-7.0) % Baso % (Auto) (0.0-1.5) % Neut # (Auto) (1.4-5.7) K/uL Lymph # (Auto) (0.6-2.4) K/uL [place] # (Auto) (0.0-0.8) K/uL Eos # (Auto) (0.0-0.7) K/uL Baso # (Auto) (0.0-0.1) K/uL Nucleated RBC % /100WBC Nucleated RBCs # K/uL Lactate (0.20-2.00) mmol/L Sodium 138 (136-145) mmol/L Potassium 4.1 (3.5-5.1) mmol/L Chloride 103 (98-107) mmol/L Carbon Dioxide 27.4 (21.0-32.0) mmol/L BUN 31 H (7.0-18.0) mg/dL Creatinine 1.4 H (0.6-1.0) mg/dL Est Cr Clr Drug Dosing 22.64 Estimated GFR (MDRD) 36.1 ml/min Glucose 126 H (74-106) mg/dL POC Glucose (60-110) mg/dL Calcium 9.0 (8.5-10.1) mg/dL Total Bilirubin (0.2-1.0) mg/dL AST (15-37) IU/L ALT (14-63) IU/L Alkaline Phosphatase (46-116) U/L Creatine Kinase (26-308) U/L Troponin I (0.000-0.056) ng/mL Total Protein (6.4-8.2) g/dL Albumin (3.4-5.0) g/dL Globulin (2.6-4.0) g/dL Albumin/Globulin Ratio (0.9-1.6) Lipase (73-393) U/L Urine Color Urine Appearance Urine pH (5.0-8.0) Ur Specific [place] (1.001-1.035) Urine Protein (NEGATIVE) mg/dL Urine Glucose (UA) (NEGATIVE) mg/dL Urine Ketones (NEGATIVE) mg/dL Urine Occult Blood (NEGATIVE) Urine Nitrite (NEGATIVE) Urine Bilirubin (NEGATIVE) Urine Urobilinogen (<2.0) EU/dL Ur Leukocyte Esterase (NEGATIVE) Urine RBC (0-2/HPF) Urine WBC (0-5/HPF) Ur Epithelial Cells (NONE-FEW) Urine Bacteria (NEGATIVE) Urine Mucus (NONE-MOD) Med Orders - Current: Current Medications Acetaminophen (Tylenol) 650 mg PO Q6H PRN PRN Reason: Pain Last Admin: 03/20/19 06:22 Dose: 650 mg Allopurinol (Zyloprim) 300 mg PO DAILY [facility] Amitriptyline HCl (Elavil) 75 mg PO BEDTIME [facility] Aspirin (Aspirin) 81 mg PO BEDTIME [facility] Atorvastatin Calcium (Lipitor) 10 mg PO DAILY [facility] Celecoxib (Celebrex) 200 mg PO BEDTIME [facility] Hydrochlorothiazide (Hydrochlorothiazide) 25 mg PO DAILY [facility] Ceftriaxone Sodium 1 gm/ (Sodium Chloride) 50 mls @ 100 mls/hr IV Q24H [facility] Sodium Chloride (Normal Saline) 1,000 mls @ 75 mls/hr IV ASDIRECTED [facility] Last Admin: 03/20/19 00:44 Dose: 75 mls/hr Insulin Aspart (Novolog) 0 unit SUBCUT TIDAC [facility]; Protocol Last Admin: 03/20/19 06:37 Dose: Not Given Losartan Potassium (Cozaar) 100 mg PO DAILY [facility] Metformin HCl (Glucophage Xr) 500 mg PO BID [facility] Omeprazole (Omeprazole) 20 mg PO ONETIME [facility] Last Admin: 03/20/19 06:20 Dose: 20 mg Sodium Chloride (Saline Flush) 10 ml FLUSH ASDIRECTED PRN PRN Reason: Keep Vein Open Sodium Chloride (Saline Flush) 2.5 ml FLUSH ASDIRECTED PRN PRN Reason: Keep Vein Open Verapamil HCl (Calan Sr) 180 mg PO DAILY [facility] Discontinued Medications Sodium Chloride (Normal Saline) 1,000 mls @ 999 mls/hr IV BOLUS ONE Stop: 03/19/19 19:19 Last Admin: 03/19/19 18:53 Dose: 999 mls/hr Ceftriaxone Sodium/Dextrose 1 (gm/ Premix) 50 mls @ 100 mls/hr IV ONETIME ONE Stop: 03/19/19 20:14 Last Admin: 03/19/19 19:52 Dose: 100 mls/hr - Exam General: Alert, Oriented (some intermittent confusion per family. Not at her baseline yet, but has improved.) Lungs: Clear to Auscultation, Normal Respiratory Effort Cardiovascular: Regular Rate, Regular Rhythm, No Murmurs GI/Abdominal Exam: Normal Bowel Sounds, Soft, Non-Tender Extremities: Normal Inspection, Normal Range of Motion, Non-Tender, Other (L hip pain at baseline.) Neurological: No: Normal Gait (unsteady.) Psy/Mental Status: Alert, Normal Affect, Normal Mood - Problem List & Annotations (1) Urinary tract infection SNOMED Code(s): 44745374 Code(s): N39.0 - URINARY TRACT INFECTION, SITE NOT SPECIFIED Status: Acute Current Visit: Yes Qualifiers: Urinary tract infection type: acute cystitis Hematuria presence: with hematuria Qualified Code(s): N30.01 - Acute cystitis with hematuria (2) Confusion SNOMED Code(s): 340826236 Code(s): R41.0 - DISORIENTATION, UNSPECIFIED Status: Acute Current Visit : Yes (3) Frequent falls SNOMED Code(s): 655239427 Code(s): R29.6 - REPEATED FALLS Status: Acute Current Visit: Yes (4) Leukocytosis SNOMED Code(s): 620116803, 812840143 Code(s): D72.829 - ELEVATED WHITE BLOOD CELL COUNT, UNSPECIFIED Status: Acute Current Visit: Yes Qualifiers: Leukocytosis type: other Qualified Code(s): D72.828 - Other elevated white blood cell count (5) Left hip pain SNOMED Code(s): 16538829 Code(s): M25.552 - PAIN IN LEFT HIP Status: Chronic Current Visit: Yes (6) HTN (hypertension) SNOMED Code(s): 72663688 Code(s): I10 - ESSENTIAL (PRIMARY) HYPERTENSION Status: Chronic Current Visit: Yes Qualifiers: Hypertension type: essential hypertension Qualified Code(s): I10 - Essential (primary) hypertension (7) DM type 2 (diabetes mellitus, type 2) SNOMED Code(s): 25913872 Code(s): E11.9 - TYPE 2 DIABETES MELLITUS WITHOUT COMPLICATIONS Status: Chronic Current Visit: Yes Qualifiers: Diabetes mellitus detention insulin use: without detention use - Problem List Review Problem List Initiated/Reviewed/Updated: Yes - Plan Plan:: 83 yo female admitted for UTI with falls. We will treat with IV Rocephin and consult PT. 1. UTI: UC pending, Continue Rocephin. Leukocytosis improving. Continue IVFs for today. 2. Falls: PT consulted. Gait unsteady still and having pain to L hip with is baseline and has a CACHORRO planned April 15 3. HTN: Stable. Continue Losartan and Verapamil 4. CKD: BUN, Cr at baseline. Monitor. 5. DM TYpe 2: Hold Metformin, Novolog SSI. BS with meals VTE prophylaxis: Heparin Dispo: 1-2 days pending
[2019-03-20] MEDS: atorvaSTATin 10 MG Tab PO SCH (08:31)
[2019-03-20] MEDS: Hydrochlorothiazide 25 MG Tab PO SCH (08:31)
[2019-03-20] MEDS: Losartan 50 MG Tab PO SCH (08:31)
[2019-03-20] MEDS: Verapamil 180 MG Tab.ER PO SCH (08:31)
[2019-03-20] MEDS: Allopurinol 300 MG Tab PO SCH (08:31)
[2019-03-20] MEDS ORDERED: metFORMIN 500 MG Tab.ER PO SCH (09:00)
[2019-03-20] MEDS ORDERED: cefTRIAXone 1 GM in Sodium Chloride 0.9% 50 ML IV SCH (20:00)
[2019-03-20] MEDS ORDERED: cefTRIAXone 1 GM in Sodium Chloride 0.9% 50 ML IV ONE (20:30)
[2019-03-20] MEDS: Celecoxib 100 MG Cap PO SCH (20:33)
[2019-03-20] MEDS: Amitriptyline 25 MG Tab PO SCH (20:33)
[2019-03-20] MEDS: Aspirin 81 MG Tab.Chew PO SCH (20:33)
[2019-03-20] MEDS: cefTRIAXone 1 GM in Premix Bag 1 BAG IV SCH (21:00)
[2019-03-21] MEDS: Sodium Chloride 0.9% 1,000 ML IV SCH ×2 (03:36→18:31)
[2019-03-21] MEDS: Insulin Aspart 100 Units/ML 3 ML Pen SUBCUT SCH ×3 (07:29→17:28)
[2019-03-21] MEDS: Losartan 50 MG Tab PO SCH (09:24)
[2019-03-21] MEDS: atorvaSTATin 10 MG Tab PO SCH (09:25)
[2019-03-21] MEDS: Verapamil 180 MG Tab.ER PO SCH (09:25)
[2019-03-21] MEDS: Allopurinol 300 MG Tab PO SCH (09:25)
[2019-03-21] MEDS: Hydrochlorothiazide 25 MG Tab PO SCH (09:25)
[2019-03-21] MEDS: Acetaminophen 325 MG Tab PO PRN ×2 (09:35→16:29)
--- NOTE | 2019-03-21 09:42 | PCM.PN ---
- General Info Date of Service: 03/21/19 - Review of Systems Systems Review Comment:: feeling better - Patient Data Vitals - Most Recent: Last Vital Signs Temp 36 C 03/21/19 08:00 Pulse 85 03/21/19 08:00 Resp 16 03/21/19 08:00 BP 144/64 H 03/21/19 09:24 Pulse Ox 93 L 03/21/19 08:00 Orthostatic Blood Pressure [ 134/56 Standing] Orthostatic Blood Pressure [ 150/68 Sitting] Orthostatic Blood Pressure [ 150/66 Supine] Weight - Most Recent: 61 kg I&O - Last 24 Hours: Intake & Output 03/20/19 03/21/19 03/21/19 22:59 06:59 14:59 Intake Total 2202 Output Total 950 Balance 1252 Lab Results Last 24 Hours: Laboratory Results - last 24 hr 03/20/19 03/20/19 03/21/19 Range/Units 11:50 16:33 06:15 WBC 9.57 (4.0-11.0) K/uL RBC 2.94 L (4.30-5.90) M/uL Hgb 10.3 L (12.0-16.0) g/dL Hct 31.4 L (36.0-46.0) % MCV 106.8 H (80.0-98.0) fL MCH 35.0 H (27.0-32.0) pg MCHC 32.8 (31.0-37.0) g/dL RDW Std Deviation 50.7 (28.0-62.0) fl RDW Coeff of Janeen 13 (11.0-15.0) % Plt Count 337 (150-400) K/uL MPV 9.40 (7.40-12.00) fL Neut % (Auto) 68.5 (48.0-80.0) % Lymph % (Auto) 19.4 (16.0-40.0) % Page % (Auto) 9.8 (0.0-15.0) % Eos % (Auto) 2.1 (0.0-7.0) % Baso % (Auto) 0.2 (0.0-1.5) % Neut # (Auto) 6.6 H (1.4-5.7) K/uL Lymph # (Auto) 1.9 (0.6-2.4) K/uL Page # (Auto) 0.9 H (0.0-0.8) K/uL Eos # (Auto) 0.2 (0.0-0.7) K/uL Baso # (Auto) 0.0 (0.0-0.1) K/uL Nucleated RBC % 0.0 /100WBC Nucleated RBCs # 0 K/uL Sodium (136-145) mmol/L Potassium (3.5-5.1) mmol/L Chloride (98-107) mmol/L Carbon Dioxide (21.0-32.0) mmol/L BUN (7.0-18.0) mg/dL Creatinine (0.6-1.0) mg/dL Est Cr Clr Drug Dosing mL/min Estimated GFR (MDRD) ml/min Glucose (74-106) mg/dL POC Glucose 175 H 171 H (60-110) mg/dL Calcium (8.5-10.1) mg/dL 03/21/19 03/21/19 Range/Units 06:15 06:26 WBC (4.0-11.0) K/uL RBC (4.30-5.90) M/uL Hgb (12.0-16.0) g/dL Hct (36.0-46.0) % MCV (80.0-98.0) fL MCH (27.0-32.0) pg MCHC (31.0-37.0) g/dL RDW Std Deviation (28.0-62.0) fl RDW Coeff of Janeen (11.0-15.0) % Plt Count (150-400) K/uL MPV (7.40-12.00) fL Neut % (Auto) (48.0-80.0) % Lymph % (Auto) (16.0-40.0) % Page % (Auto) (0.0-15.0) % Eos % (Auto) (0.0-7.0) % Baso % (Auto) (0.0-1.5) % Neut # (Auto) (1.4-5.7) K/uL Lymph # (Auto) (0.6-2.4) K/uL Page # (Auto) (0.0-0.8) K/uL Eos # (Auto) (0.0-0.7) K/uL Baso # (Auto) (0.0-0.1) K/uL Nucleated RBC % /100WBC Nucleated RBCs # K/uL Sodium 141 (136-145) mmol/L Potassium 3.7 (3.5-5.1) mmol/L Chloride 106 (98-107) mmol/L Carbon Dioxide 23.6 (21.0-32.0) mmol/L BUN 30 H (7.0-18.0) mg/dL Creatinine 1.5 H (0.6-1.0) mg/dL Est Cr Clr Drug Dosing 21.13 mL/min Estimated GFR (MDRD) 33.3 ml/min Glucose 122 H (74-106) mg/dL POC Glucose 120 H (60-110) mg/dL Calcium 8.8 (8.5-10.1) mg/dL Aron Results Last 24 Hours: Microbiology 03/19/19 18:19 Urine Culture - Final Urine, Clean Catch Escherichia Coli Normal Urogenital Milagros 03/19/19 19:10 Aerobic Blood Culture - Preliminary Blood - Venous - Lab Draw NO GROWTH AFTER 1 DAY Anaerobic Blood Culture - Preliminary NO GROWTH AFTER 1 DAY 03/19/19 19:10 Aerobic Blood Culture - Preliminary Blood - Venous NO GROWTH AFTER 1 DAY Anaerobic Blood Culture - Preliminary NO GROWTH AFTER 1 DAY Med Orders - Current: Current Medications Acetaminophen (Tylenol) 650 mg PO Q6H PRN PRN Reason: Pain Last Admin: 03/21/19 09:35 Dose: 650 mg Allopurinol (Zyloprim) 300 mg PO DAILY [facility] Last Admin: 03/21/19 09:25 Dose: 300 mg Amitriptyline HCl (Elavil) 75 mg PO BEDTIME [facility] Last Admin: 03/20/19 20:33 Dose: 75 mg Aspirin (Aspirin) 81 mg PO BEDTIME [facility] Last Admin: 03/20/19 20:33 Dose: 81 mg Atorvastatin Calcium (Lipitor) 10 mg PO DAILY [facility] Last Admin: 03/21/19 09:25 Dose: 10 mg Celecoxib (Celebrex) 200 mg PO BEDTIME [facility] Last Admin: 03/20/19 20:33 Dose: 200 mg Hydrochlorothiazide (Hydrochlorothiazide) 25 mg PO DAILY [facility] Last Admin: 03/21/19 09:25 Dose: 25 mg Sodium Chloride (Normal Saline) 1,000 mls @ 75 mls/hr IV ASDIRECTED [facility] Last Admin: 03/21/19 03:36 Dose: 75 mls/hr Ceftriaxone Sodium/Dextrose 1 (gm/ Premix) 50 mls @ 100 mls/hr IV Q24H [facility] Last Admin: 03/20/19 21:00 Dose: 100 mls/hr Insulin Aspart (Novolog) 0 unit SUBCUT TIDAC [facility]; Protocol Last Admin: 03/21/19 07:29 Dose: Not Given Losartan Potassium (Cozaar) 100 mg PO DAILY [facility] Last Admin: 03/21/19 09:24 Dose: 100 mg Omeprazole (Omeprazole) 20 mg PO ONETIME [facility] Last Admin: 03/20/19 06:20 Dose: 20 mg Sodium Chloride (Saline Flush) 10 ml FLUSH ASDIRECTED PRN PRN Reason: Keep Vein Open Sodium Chloride (Saline Flush) 2.5 ml FLUSH ASDIRECTED PRN PRN Reason: Keep Vein Open Verapamil HCl (Calan Sr) 180 mg PO DAILY [facility] Last Admin: 03/21/19 09:25 Dose: 180 mg Discontinued Medications Sodium Chloride (Normal Saline) 1,000 mls @ 999 mls/hr IV BOLUS ONE Stop: 03/19/19 19:19 Last Admin: 03/19/19 18:53 Dose: 999 mls/hr Ceftriaxone Sodium/Dextrose 1 (gm/ Premix) 50 mls @ 100 mls/hr IV ONETIME ONE Stop: 03/19/19 20:14 Last Admin: 03/19/19 19:52 Dose: 100 mls/hr Ceftriaxone Sodium 1 gm/ (Sodium Chloride) 50 mls @ 100 mls/hr IV Q24H [facility] Last Admin: 03/20/19 22:04 Dose: Not Given Ceftriaxone Sodium 1 gm/ (Sodium Chloride) 50 mls @ 100 mls/hr IV ONETIME ONE Stop: 03/20/19 20:59 Metformin HCl (Glucophage Xr) 500 mg PO BID [facility] Last Admin: 03/20/19 09:28 Dose: Not Given - Exam General: Cooperative Neck: Supple Lungs: Clear to Auscultation, Normal Respiratory Effort Cardiovascular: Regular Rate, Regular Rhythm GI/Abdominal Exam: Soft, Non-Tender Extremities: Non-Tender, No Pedal Edema Skin: Warm, Dry, Intact - Problem List Review Problem List Initiated/Reviewed/Updated: Yes - My Orders Last 24 Hours: My Active Orders 03/20/19 09:00 Allopurinol [Zyloprim] 300 mg PO DAILY Losartan [Cozaar] 100 mg PO DAILY Verapamil [Calan SR] 180 mg PO DAILY atorvaSTATin [Lipitor] 10 mg PO DAILY hydroCHLOROthiazide 25 mg PO DAILY 03/20/19 21:00 Amitriptyline [Elavil] 75 mg PO BEDTIME Aspirin 81 mg PO BEDTIME Celecoxib [CeleBREX] 200 mg PO BEDTIME cefTRIAXone [Rocephin in Dextrose,Iso-Osm 1 GM/50 ML] 1 gm Premix Bag 1 bag IV Q24H - Plan Plan:: 83 yo female admitted for UTI with falls. We will continue IV Rocephin. Plan is to work with PT again today.
[2019-03-21] MEDS: cefTRIAXone 1 GM in Premix Bag 1 BAG IV SCH (20:45)
[2019-03-21] MEDS: Celecoxib 100 MG Cap PO SCH (20:50)
[2019-03-21] MEDS: Aspirin 81 MG Tab.Chew PO SCH (20:50)
[2019-03-21] MEDS: Amitriptyline 25 MG Tab PO SCH (20:51)
[2019-03-22] MEDS: Sodium Chloride 0.9% 1,000 ML IV SCH (04:30)
[2019-03-22] MEDS: Insulin Aspart 100 Units/ML 3 ML Pen SUBCUT SCH (06:45)
[2019-03-22 08:03] VITALS: BP 184/88
[2019-03-22] MEDS: Losartan 50 MG Tab PO SCH (08:45)
[2019-03-22] MEDS: atorvaSTATin 10 MG Tab PO SCH (08:46)
[2019-03-22] MEDS: Allopurinol 300 MG Tab PO SCH (08:46)
[2019-03-22] MEDS: Hydrochlorothiazide 25 MG Tab PO SCH (08:46)
[2019-03-22] MEDS: Verapamil 180 MG Tab.ER PO SCH (08:46)
--- NOTE | 2019-03-22 17:05 | PCM.DCSUM1 ---
Discharge Summary - Discharge Data Discharge Date: 03/22/19 Discharge Disposition: Home, Self-Care 01 Condition: Good - Patient Summary/Data Consults: Consultations 03/19/19 23:11 PT Evaluation and Treatment [CONS] Routine Hospital Course: 83 yo female with pmh of HTN and DM who was admitted for E.coli urinary tract infection and falls. She presented to the ED with dysuria, generalized weakness , dizziness and multiple falls. Laboratory values were significant for WBC of 16,220 and a UA suggestive of UTI. Head CT, Pelvis x-ray, cervical spine CT and CXR were negative. She was treated with rocephin. Urine cultures grew out ecoli. PT was consulted and evaluated the patient prior to discharge. She was discharged home on Keflex for seven more days. She is to follow up with Dr. Bradley. - Patient Instructions Diet: Usual Diet as Tolerated Activity: As Tolerated - Discharge Plan Prescriptions/Med Rec: cephALEXin [Keflex] 500 mg PO BID #14 cap Home Medications: Home Meds Allopurinol [Zyloprim] 300 mg PO DAILY 08/31/16 [History] Amitriptyline HCl 75 mg PO BEDTIME 08/31/16 [History] Aspirin 81 mg PO BEDTIME 08/31/16 [History] Celecoxib 200 mg PO BEDTIME 08/31/16 [History] Losartan [Cozaar] 100 mg PO DAILY 08/31/16 [History] Verapamil [Calan SR] 180 mg PO DAILY 08/31/16 [History] metFORMIN [Glucophage XR] 500 mg PO BID 08/31/16 [History] ALPRAZolam [Alprazolam Odt] 0.25 mg PO DAILY 03/19/19 [History] Cholecalciferol (Vitamin D3) [Vitamin D3] 5,000 unit PO DAILY 03/19/19 [History] Omeprazole 20 mg PO ONETIME 03/19/19 [History] atorvaSTATin [Lipitor] 10 mg PO DAILY 03/19/19 [History] hydroCHLOROthiazide [Hydrochlorothiazide] 25 mg PO DAILY 03/19/19 [History] cephALEXin [Keflex] 500 mg PO BID #14 cap 03/22/19 [Rx] Patient Handouts: Understanding Your Risk for Falls, Urinary Tract Infection, Adult, Cephalexin oral suspension Referrals: Moni Bradley MD [Physician] - 03/31/19 9:00 am - Discharge Summary/Plan Comment DC Time >30 min.: No - Patient Data Vitals - Most Recent: Last Vital Signs Temp 36.5 C 03/22/19 08:01 Pulse 102 H 03/22/19 08:01 Resp 18 03/22/19 08:01 BP 184/88 H 03/22/19 08:45 Pulse Ox 94 L 03/22/19 08:01 Orthostatic Blood Pressure [ 134/56 Standing] Orthostatic Blood Pressure [ 150/68 Sitting] Orthostatic Blood Pressure [ 150/66 Supine] Weight - Most Recent: 61 kg I&O - Last 24 hours: Intake & Output 03/22/19 03/22/19 03/22/19 06:59 14:59 22:59 Intake Total 1601 738 Output Total 1300 1000 Balance 301 -262 Lab Results - Last 24 hrs: Laboratory Results - last 24 hr 03/21/19 03/22/19 03/22/19 Range/Units 17:23 06:11 06:11 WBC 10.44 (4.0-11.0) K/uL RBC 3.01 L (4.30-5.90) M/uL Hgb 10.5 L (12.0-16.0) g/dL Hct 32.1 L (36.0-46.0) % MCV 106.6 H (80.0-98.0) fL MCH 34.9 H (27.0-32.0) pg MCHC 32.7 (31.0-37.0) g/dL RDW Std Deviation 50.2 (28.0-62.0) fl RDW Coeff of Janeen 13 (11.0-15.0) % Plt Count 373 (150-400) K/uL MPV 9.30 (7.40-12.00) fL Neut % (Auto) 75.4 (48.0-80.0) % Lymph % (Auto) 14.1 L (16.0-40.0) % Donley % (Auto) 8.2 (0.0-15.0) % Eos % (Auto) 2.0 (0.0-7.0) % Baso % (Auto) 0.3 (0.0-1.5) % Neut # (Auto) 7.9 H (1.4-5.7) K/uL Lymph # (Auto) 1.5 (0.6-2.4) K/uL Donley # (Auto) 0.9 H (0.0-0.8) K/uL Eos # (Auto) 0.2 (0.0-0.7) K/uL Baso # (Auto) 0.0 (0.0-0.1) K/uL Nucleated RBC % 0.0 /100WBC Nucleated RBCs # 0 K/uL Sodium 140 (136-145) mmol/L Potassium 4.2 (3.5-5.1) mmol/L Chloride 105 (98-107) mmol/L Carbon Dioxide 22.5 (21.0-32.0) mmol/L BUN 31 H (7.0-18.0) mg/dL Creatinine 1.5 H (0.6-1.0) mg/dL Est Cr Clr Drug Dosing 21.13 mL/min Estimated GFR (MDRD) 33.3 ml/min Glucose 134 H (74-106) mg/dL POC Glucose 156 H (60-110) mg/dL Calcium 9.2 (8.5-10.1) mg/dL 03/22/19 Range/Units 06:42 WBC (4.0-11.0) K/uL RBC (4.30-5.90) M/uL Hgb (12.0-16.0) g/dL Hct (36.0-46.0) % MCV (80.0-98.0) fL MCH (27.0-32.0) pg MCHC (31.0-37.0) g/dL RDW Std Deviation (28.0-62.0) fl RDW Coeff of Janeen (11.0-15.0) % Plt Count (150-400) K/uL MPV (7.40-12.00) fL Neut % (Auto) (48.0-80.0) % Lymph % (Auto) (16.0-40.0) % Donley % (Auto) (0.0-15.0) % Eos % (Auto) (0.0-7.0) % Baso % (Auto) (0.0-1.5) % Neut # (Auto) (1.4-5.7) K/uL Lymph # (Auto) (0.6-2.4) K/uL Donley # (Auto) (0.0-0.8) K/uL Eos # (Auto) (0.0-0.7) K/uL Baso # (Auto) (0.0-0.1) K/uL Nucleated RBC % /100WBC Nucleated RBCs # K/uL Sodium (136-145) mmol/L Potassium (3.5-5.1) mmol/L Chloride (98-107) mmol/L Carbon Dioxide (21.0-32.0) mmol/L BUN (7.0-18.0) mg/dL Creatinine (0.6-1.0) mg/dL Est Cr Clr Drug Dosing mL/min Estimated GFR (MDRD) ml/min Glucose (74-106) mg/dL POC Glucose 141 H (60-110) mg/dL Calcium (8.5-10.1) mg/dL EMELIA Results - Last 24 hrs: Microbiology 03/19/19 19:10 Aerobic Blood Culture - Preliminary Blood - Venous - Lab Draw NO GROWTH AFTER 2 DAYS Anaerobic Blood Culture - Preliminary NO GROWTH AFTER 2 DAYS 03/19/19 19:10 Aerobic Blood Culture - Preliminary Blood - Venous NO GROWTH AFTER 2 DAYS Anaerobic Blood Culture - Preliminary NO GROWTH AFTER 2 DAYS Med Orders - Current: Current Medications Discontinued Medications Acetaminophen (Tylenol) 650 mg PO Q6H PRN PRN Reason: Pain Last Admin: 03/21/19 16:29 Dose: 650 mg Allopurinol (Zyloprim) 300 mg PO DAILY [facility] Last Admin: 03/22/19 08:46 Dose: 300 mg Amitriptyline HCl (Elavil) 75 mg PO BEDTIME [facility] Last Admin: 03/21/19 20:51 Dose: 75 mg Aspirin (Aspirin) 81 mg PO BEDTIME [facility] Last Admin: 03/21/19 20:50 Dose: 81 mg Atorvastatin Calcium (Lipitor) 10 mg PO DAILY [facility] Last Admin: 03/22/19 08:46 Dose: 10 mg Celecoxib (Celebrex) 200 mg PO BEDTIME [facility] Last Admin: 03/21/19 20:50 Dose: 200 mg Hydrochlorothiazide (Hydrochlorothiazide) 25 mg PO DAILY [facility] Last Admin: 03/22/19 08:46 Dose: 25 mg Sodium Chloride (Normal Saline) 1,000 mls @ 999 mls/hr IV BOLUS ONE Stop: 03/19/19 19:19 Last Admin: 03/19/19 18:53 Dose: 999 mls/hr Ceftriaxone Sodium/Dextrose 1 (gm/ Premix) 50 mls @ 100 mls/hr IV ONETIME ONE Stop: 03/19/19 20:14 Last Admin: 03/19/19 19:52 Dose: 100 mls/hr Ceftriaxone Sodium 1 gm/ (Sodium Chloride) 50 mls @ 100 mls/hr IV Q24H [facility] Last Admin: 03/20/19 22:04 Dose: Not Given Sodium Chloride (Normal Saline) 1,000 mls @ 75 mls/hr IV ASDIRECTED [facility] Last Admin: 03/22/19 04:30 Dose: 75 mls/hr Ceftriaxone Sodium 1 gm/ (Sodium Chloride) 50 mls @ 100 mls/hr IV ONETIME ONE Stop: 03/20/19 20:59 Ceftriaxone Sodium/Dextrose 1 (gm/ Premix) 50 mls @ 100 mls/hr IV Q24H [facility] Last Admin: 03/21/19 20:45 Dose: 100 mls/hr Insulin Aspart (Novolog) 0 unit SUBCUT TIDAC [facility]; Protocol Last Admin: 03/22/19 06:45 Dose: Not Given Losartan Potassium (Cozaar) 100 mg PO DAILY [facility] Last Admin: 03/22/19 08:45 Dose: 100 mg Metformin HCl (Glucophage Xr) 500 mg PO BID [facility] Last Admin: 03/20/19 09:28 Dose: Not Given Omeprazole (Omeprazole) 20 mg PO ONETIME [facility] Last Admin: 03/20/19 06:20 Dose: 20 mg Sodium Chloride (Saline Flush) 10 ml FLUSH ASDIRECTED PRN PRN Reason: Keep Vein Open Sodium Chloride (Saline Flush) 2.5 ml FLUSH ASDIRECTED PRN PRN Reason: Keep Vein Open Verapamil HCl (Calan Sr) 180 mg PO DAILY [facility] Last Admin: 03/22/19 08:46 Dose: 180 mg
== END 2019-03-22 11:20 | disposition home or self-care (01) ==
LOC: MW.ED 18:06 → MW.MS 20:32
PROVIDERS: ADMIT Internal Medicine; ATTEND Internal Medicine
DX: N39.0 Urinary tract infection, site not specified (principal); R53.1 Weakness; R55 Syncope and collapse; R29.6 Repeated falls; I10 Essential (primary) hypertension; E11.9 Type 2 diabetes mellitus without complications; Z79.82 Long term (current) use of aspirin; Z79.1 Long term (current) use of non-steroidal anti-inflammatories (NSAID); Z79.84 Long term (current) use of oral hypoglycemic drugs; Z79.899 Other long term (current) drug therapy
CPT/HCPCS: 36415; 70450; 71045; 72125; 72170; 80048; 80053; 81001; 82550; 82962; 83605; 83690; 84484; 85025; 87040; 87086; 87088; 87186; 93005; 96361; 96365; 96366; 96376; 97110; 97161; 97530; 99285; A4217; A9270; G0378; J0696; J1815; J7040

== ENCOUNTER 2019-07-14 08:00 | Inpatient (IN) | payer MEDICARE, BC ==
--- NOTE | 2019-07-14 09:06 | PCM.PREANE ---
Preanesthetic Assessment - Anesthesia/Transfusion/Family Hx Anesthesia History: Prior Anesthesia Without Reaction Family History of Anesthesia Reaction: No Transfusion History: No Prior Transfusion(s) Intubation History: Unknown - Review of Systems General: No Symptoms Pulmonary: No Symptoms Cardiovascular: No Symptoms Gastrointestinal: No Symptoms Neurological: No Symptoms Other: Reports: None - Physical Assessment Vital Signs: Last Vital Signs Temp 36.4 C 07/14/19 08:50 Pulse 89 07/14/19 08:50 Resp 18 07/14/19 08:50 BP 139/85 07/14/19 08:50 Pulse Ox 95 07/14/19 08:50 Height: 5 ft Weight: 58.06 kg ASA Class: 3 Mental Status: Alert & Oriented x3 Airway Class: Mallampati = 2 Dentition: Reports: Dentures (upper) Thyro-Mental Finger Breadths: 3 Mouth Opening Finger Breadths: 3 ROM/Head Extension: Limited/Partial Lungs: Clear to Auscultation, Normal Respiratory Effort Cardiovascular: Regular Rate, Regular Rhythm - Allergies Allergies/Adverse Reactions: Allergies Allergy/AdvReac Type Severity Reaction Status Date / Time No Known Allergies Allergy Verified 07/09/19 10:20 - Blood Blood Available: No - Anesthesia Plan Pre-Op Medication Ordered: None - Acknowledgements Anesthesia Type Planned: Spinal (general anesthesia back-up plan) Pt an Appropriate Candidate for the Planned Anesthesia: Yes Alternatives and Risks of Anesthesia Discussed w Pt/Guardian: Yes Pt/Guardian Understands and Agrees with Anesthesia Plan: Yes PreAnesthesia Questionnaire - Past Health History Medical/Surgical History: Denies Medical/Surgical History HEENT History: Reports: Hard of Hearing, Macular Degeneration, Other (See Below) Other HEENT History: wears glasses, has bilateral hearing aides Cardiovascular History: Reports: High Cholesterol, Hypertension Respiratory History: Reports: Other (See Below) Other Respiratory History: pneumonia Gastrointestinal History: Reports: GERD, Pancreatitis (2 1/2 years ago) Genitourinary History: Reports: UTI, Recurrent Other Genitourinary History: bladder infection, decreased GFR [employer] History: Reports: Musculoskeletal History: Reports: Fibromyalgia, Gout, Osteoarthritis Other Musculoskeletal History: hx of spinal stenosis Neurological History: Reports: Migraines, Neuropathy, Peripheral Psychiatric History: Reports: Anxiety, Depression Endocrine/Metabolic History: Reports: Diabetes, Type II Immunologic History: Reports: None Oncologic (Cancer) History: Reports: None - Infectious Disease History Infectious Disease History: Reports: Chicken Pox, Measles, Mumps - Past Surgical History Head Surgeries/Procedures: Reports: None HEENT Surgical History: Reports: Tonsillectomy GI Surgical History: Reports: Appendectomy Female Surgical History: Reports: Oophorectomy Neurological Surgical History: Reports: Discectomy, Laminectomy, Lumbar Spine ( x3) - SUBSTANCE USE Smoking Status *Q: Former Smoker Tobacco Use Within Last Twelve Months: No Recreational Drug Use History: No - HOME MEDS Home Medications: Home Meds Aspirin 81 mg PO DAILY 08/31/16 [History] Losartan [Cozaar] 100 mg PO QAM 08/31/16 [History] Verapamil [Calan SR] 180 mg PO BEDTIME 08/31/16 [History] metFORMIN [Glucophage XR] 500 mg PO QAM 08/31/16 [History] Cholecalciferol (Vitamin D3) [Vitamin D3] 5,000 unit PO DAILY 03/19/19 [History] Omeprazole 20 mg PO DAILY PRN 03/19/19 [History] atorvaSTATin [Lipitor] 10 mg PO BEDTIME 03/19/19 [History] Amitriptyline HCl 100 mg PO BEDTIME 07/09/19 [History] Escitalopram Oxalate 10 mg PO DAILY 07/09/19 [History] Febuxostat [Uloric] 40 mg PO DAILY 07/09/19 [History] Vit A/Vit C/Vit E/Zinc/Copper [Preservision Areds Softgel] 1 cap PO BID [History] Vitamin B Complex 1 cap PO DAILY 07/09/19 [History] hydroCHLOROthiazide [Hydrochlorothiazide] 25 mg PO QAM 07/09/19 [History] metFORMIN HCl [Metformin HCl ER] 1,000 mg PO QPM 07/09/19 [History] - CURRENT (IN HOUSE) MEDS Current Meds: Current Medications Cefazolin Sodium/Dextrose 2 gm (/ Premix) 50 mls @ 100 mls/hr IV ONETIME CHRISTOPHER Tranexamic Acid (Cyklokapron) 2,000 mg IV ONETIME ONE Stop: 07/14/19 10:01 Discontinued Medications Tranexamic Acid (Cyklokapron) Confirm Administered Dose 1,000 mg .ROUTE .STK- MED ONE Stop: 07/14/19 08:22 Tranexamic Acid (Cyklokapron) Confirm Administered Dose 1,000 mg .ROUTE .K- MED ONE Stop: 07/14/19 08:25
[2019-07-14] MEDS ORDERED: fentaNYL 100 MCG/2 ML SDV ONE (09:23)
[2019-07-14] MEDS ORDERED: Midazolam 1 MG/ML 2 ML SDV ONE (09:23)
[2019-07-14] MEDS ORDERED: Lidocaine 2% 5 ML SDV ONE (09:24)
[2019-07-14] MEDS ORDERED: ceFAZolin 2 GM in Premix Bag 1 BAG IV SCH (10:00)
[2019-07-14] MEDS ORDERED: Propofol 200 MG/20 ML SDV ONE (10:01)
[2019-07-14] MEDS ORDERED: Sodium Chloride 0.9% 20 ML ONE (10:14)
[2019-07-14] MEDS ORDERED: ceFAZolin 1 GM Vial ONE (10:14)
[2019-07-14] MEDS ORDERED: Phenylephrine/Normal Saline 100 MCG/ML 10 ML Syringe ONE (11:24)
--- NOTE | 2019-07-14 11:56 | PCM.OPNOTE ---
- General Post-Op/Procedure Note Date of Surgery/Procedure: 07/14/19 Operative Procedure(s): left anterior total hip arthroplasty Findings: severe OA Pre Op Diagnosis: left hip osteoarthritis Post-Op Diagnosis: same Anesthesia Technique: Moderate Sedation, Spinal Primary Surgeon: Brayan Winslow Mai Manager [employer]: Ana Maria Paulson Manager [employer]: Helga Maxwell Pathology: femoral head EBL in mLs: 300 Complications: none Condition: Good
[2019-07-14] MEDS ORDERED: Aluminum Hydroxide/Magnesium Hydroxide/Simethicone Susp 30 ML Cup PO PRN (12:08)
[2019-07-14] MEDS ORDERED: Bisacodyl 10 MG Supp RECTAL PRN (12:08)
[2019-07-14] MEDS ORDERED: Sodium Chloride 0.9% 10 ML Syringe FLUSH PRN (12:08)
[2019-07-14] MEDS ORDERED: Docusate Sodium 100 MG Cap PO PRN (12:08)
[2019-07-14] MEDS ORDERED: diphenhydrAMINE 25 MG Cap PO PRN (12:08)
[2019-07-14] MEDS ORDERED: Sodium Chloride 0.9% 2.5 ML Syringe FLUSH PRN (12:08)
[2019-07-14] MEDS ORDERED: Ondansetron 4 MG/2 ML SDV IVPUSH PRN (12:08)
[2019-07-14] MEDS ORDERED: Morphine 2 MG/ML Syringe IVPUSH PRN (12:11)
--- NOTE | 2019-07-14 13:02 | PCM.POSTAN ---
POST ANESTHESIA ASSESSMENT - MENTAL STATUS Mental Status: Alert, Oriented - VITAL SIGNS Vital Signs: Last Vital Signs Temp 36.0 C 07/14/19 12:14 Pulse 65 07/14/19 12:47 Resp 11 L 07/14/19 12:47 BP 140/65 07/14/19 12:47 Pulse Ox 94 L 07/14/19 12:47 - RESPIRATORY Respiratory Status: Respiratory Rate WNL, Airway Patent, O2 Saturation Stable - CARDIOVASCULAR CV Status: Pulse Rate WNL, Blood Pressure Stable - GASTROINTESTINAL GI Status: No Symptoms - PAIN Pain Score: 0 - POST OP HYDRATION Hydration Status: Adequate & Stable - OBSERVATIONS Free Text/Narrative:: no anesthesia problems
[2019-07-14] MEDS: Lactated Ringers 1,000 ML IV SCH ×2 (13:26→23:59)
[2019-07-14 14:04] LABS: CARBON DIOXIDE,CO2 26.2 mmol/L (21.0-32.0); POTASSIUM,K 4.2 mmol/L (3.5-5.1)
--- NOTE | 2019-07-14 14:17 | OR ---
SURGEON: Brayan Ashraf MD DATE OF PROCEDURE: 07/14/2019 PRIMARY SURGEON: Brayan Ashraf MD. ASSISTANTS: Ana Maria Paulson PA-C, and JESSA Montgomery. PREOPERATIVE DIAGNOSIS: Left hip osteoarthritis. POSTOPERATIVE DIAGNOSIS: Left hip osteoarthritis. OPERATION PERFORMED: Left anterior total hip arthroplasty. ANESTHESIA: Spinal with sedation. COMPLICATIONS: None. ESTIMATED BLOOD LOSS: 300 mL. SPECIMENS: Femoral head. IMPLANTS: Dilcia Continuum Trabecular Metal shell with cluster holes, 52 mm outer diameter; Vivacit-E neutral liner, 36 mm inner diameter; M/L taper press-fit stem, size 6, standard offset; and VerSys 36 mm -3.5 neck length metal head. INDICATIONS: The patient is an 84-year-old female with the above diagnosis, who failed conservative management, modification therapy and injections. Has chronic pain on a daily basis hindering activities and wishes to undergo replacement. She understands the risks, benefits, alteratives, and complications of procedure including, but not limited to, infection, neurovascular injury, continued pain, nonresolution of symptoms, DVT, PE, stroke, NC, , leg-length discrepancy, fracture, or dislocation, and she wished to proceed. Assistants were necessary in the surgery for retraction, leg manipulation, closing, positioning. DESCRIPTION OF PROCEDURE: The patient was seen in preoperative area, operative extremity was marked. The patient was transferred to the operating room where spinal anesthetic was given. She was placed supine on the Maquet table. A Arce catheter was placed and legs were placed in leg bars with a narrow perineal post. Left hip was prepped and draped in usual sterile fashion with alcohol followed by ChloraPrep with Ioban covering. A formal time-out was taken identifying the correct patient, procedure, and extremity. She received preoperative antibiotics of Ancef and 2 g of TXA. A 6 cm incision starting just lateral to the ASIS going obliquely to the femur was made. Dissection was carried down through subcutaneous tissues. Hemostasis was obtained. The fascia overlying the TFL lateral to lateral femoral cutaneous nerve was opened. The interval between TFL and sartorius and deep between the abductors and rectus was opened. The vastus lateralis fascia was opened and the anterior vessels were coagulated. Deep Gamaliel retractor was placed. Indirect head of the rectus was released and the capsule was held and tagged with two sutures. Deep retractors were placed. Neck was cut from saddle region 1 cm above the lesser trochanter and the head was removed. There was severe arthritis with obliteration of the pulvinar with osteophytes. The inferior capsule was released preserving the iliopsoas tendon. The labral remnants were removed. Head measured approximately 45 to 46 mm and the hip was sequentially reamed from 45 up to 51 mm, going slightly superior medial to get a good fit and fill under fluoroscopic control and then a 52 mm Trabecular Metal shell with cluster holes was impacted in 10 degrees of anteversion and 40 degrees of abduction. This had excellent press fit. There was no uncovering of the acetabular component anteriorly. Neutral liner was then impacted into place. Femoral lift was placed. The leg was externally rotated, abducted, and extended. Superior capsule and obturator internus were released preserving the piriformis. Central canal finder was utilized. The hip was sequentially broached from a starter rasp up to size 6 following the three affiliated version. This had excellent fit and fill. It was trial reduced with a 0 neck length. Printed overlay technique showed leg lengths to be slightly decreased, but offset to be equal. The hip was stable through range of motion with no Shuck. The hip was then dislocated and placed in the same position, and after irrigating, the final size 6 stem was impacted. It did sit about 4 to 5 mm proud. It was trial reduced to -3.5 neck length. Printed overlay technique showed offset to be equal, leg lengths to be increased a couple of millimeters. This was deemed adequate as the hip was stable. The hip was then dislocated and the final -3.5, 36 mm head was impacted. The hip was then relocated. Two tag sutures were tied together. The wound was irrigated. The fascia was closed with #1 Vicryl, subcutaneous tissues with 2-0 Stratafix, skin with running 4-0 Monocryl. Dermabond tape and Aquacel dressing were placed. The patient was transferred to recovery room in stable condition. Sponge and needle counts were correct at the end of the case. There were no known complications. She will take aspirin for DVT prophylaxis. MISHA TORRES /[id number]
--- NOTE | 2019-07-14 14:20 | PCM.CONS ---
<Debora Juarez M - Last Filed: 07/14/19 14:28> H&P History of Present Illness - General Date of Service: 07/14/19 Admit Problem/Dx: Admission Diagnosis/Problem Admission Diagnosis/Problem Hip replacement planned Source of Information: Patient, Family (son at bedside), Old Records History Limitations: Reports: No Limitations - History of Present Illness Initial Comments - Free Text/Narative: This 84 year old female with pmh of HTN, DM type 2, anxiety and PVD presented today for L anterior hip arthroplasty with Dr Ashraf. Hospitalist service consulted for medical management of HTN and DM. She recently arrived to Medical floor from PACU. She is alert and oriented. Son is at bedside. She reports she is feeling ok, no concerns currently. She reports some neck muscle soreness after waking up from anesthesia. No headache, light or sound sensitivity. No blurred vision. She denies chest pain or sob. She felt her normal going into surgery. She and son report she is going to [facility] at discharge for rehabilitation. At baseline, renal function elevated, BUN 20-40 and Cr 1.2-1.5. A1c at pre op eval was 6.0. PCP, Dr Bradley. - Related Data Allergies/Adverse Reactions: Allergies Allergy/AdvReac Type Severity Reaction Status Date / Time No Known Allergies Allergy Verified 07/14/19 14:21 Home Medications: Home Meds Aspirin 81 mg PO DAILY 08/31/16 [History] Losartan [Cozaar] 100 mg PO QAM 08/31/16 [History] Verapamil [Calan SR] 180 mg PO BEDTIME 08/31/16 [History] metFORMIN [Glucophage XR] 500 mg PO QAM 08/31/16 [History] Cholecalciferol (Vitamin D3) [Vitamin D3] 5,000 unit PO DAILY 03/19/19 [History] Omeprazole 20 mg PO DAILY PRN 03/19/19 [History] atorvaSTATin [Lipitor] 10 mg PO BEDTIME 03/19/19 [History] Amitriptyline HCl 100 mg PO BEDTIME 07/09/19 [History] Escitalopram Oxalate 10 mg PO DAILY 07/09/19 [History] Febuxostat [Uloric] 40 mg PO DAILY 07/09/19 [History] Vit A/Vit C/Vit E/Zinc/Copper [Preservision Areds Softgel] 1 cap PO BID [History] Vitamin B Complex 1 cap PO DAILY 07/09/19 [History] hydroCHLOROthiazide [Hydrochlorothiazide] 25 mg PO QAM 07/09/19 [History] metFORMIN HCl [Metformin HCl ER] 1,000 mg PO QPM 07/09/19 [History] Past Medical History - Past Health History Medical/Surgical History: Denies Medical/Surgical History HEENT History: Reports: Hard of Hearing, Macular Degeneration, Other (See Below) Other HEENT History: wears glasses, has bilateral hearing aides Cardiovascular History: Reports: High Cholesterol, Hypertension. Denies: Afib, CAD, [place] Respiratory History: Reports: Other (See Below). Denies: COPD Other Respiratory History: pneumonia Gastrointestinal History: Reports: GERD, Pancreatitis (2 1/2 years ago) Genitourinary History: Reports: UTI, Recurrent Other Genitourinary History: bladder infection, decreased GFR [employer] History: Reports: Musculoskeletal History: Reports: Fibromyalgia, Gout, Osteoarthritis Other Musculoskeletal History: hx of spinal stenosis Neurological History: Reports: Migraines, Neuropathy, Peripheral. Denies: CVA, TIA Psychiatric History: Reports: Anxiety, Depression Endocrine/Metabolic History: Reports: Diabetes, Type II Immunologic History: Reports: None Oncologic (Cancer) History: Reports: None - Infectious Disease History Infectious Disease History: Reports: Chicken Pox, Measles, Mumps - Past Surgical History Head Surgeries/Procedures: Reports: None HEENT Surgical History: Reports: Tonsillectomy GI Surgical History: Reports: Appendectomy Female Surgical History: Reports: Oophorectomy Neurological Surgical History: Reports: Discectomy, Laminectomy, Lumbar Spine ( x3) Social & Family History - Family History Family Medical History: Noncontributory - Tobacco Use Smoking Status *Q: Former Smoker Tobacco Use Comment: quit 40 years ago - Caffeine Use Caffeine Use: Reports: Coffee, Soda - Alcohol Use Alcohol Use History: No - Recreational Drug Use Recreational Drug Use: No Drug Use in Last 12 Months: No - Living Situation & Occupation Occupation: Retired H&P Review of Systems - Review of Systems: Review Of Systems: See Below General: Reports: No Symptoms. Denies: Fever, Chills, Malaise HEENT: Reports: Other (mild neck pain after surgery). Denies: Headaches, Vertigo, Visual Changes Pulmonary: Reports: No Symptoms. Denies: Shortness of Breath, Cough, Sputum Cardiovascular: Reports: No Symptoms. Denies: Chest Pain, Dyspnea on Exertion, Lightheadedness Gastrointestinal: Reports: No Symptoms. Denies: Abdominal Pain, Black Stool, Bloody Stool, Nausea, Vomiting Genitourinary: Reports: No Symptoms. Denies: Dysuria, Frequency, Burning Musculoskeletal: Reports: Neck Pain Skin: Reports: No Symptoms Psychiatric: Reports: No Symptoms Neurological: Reports: No Symptoms Hematologic/Lymphatic: Reports: No Symptoms Immunologic: Reports: No Symptoms Exam - Exam Exam: See Below - Vital Signs Vital Signs: Last Vital Signs Temp 97 F 07/14/19 13:15 Pulse 78 07/14/19 13:45 Resp 16 07/14/19 13:45 BP 175/81 H 07/14/19 13:45 Pulse Ox 97 07/14/19 13:45 Weight: 58.06 kg - Exam General: Alert, Oriented, Cooperative HEENT: Conjunctiva Clear, Mucosa Moist & [place], Pupils Equal Neck: Supple, Trachea Midline, Other (tenderness to trapezius muscle, no nuchal rigidity noted.) Lungs: Clear to Auscultation, Normal Respiratory Effort Cardiovascular: Regular Rate, Regular Rhythm, Normal S1, Normal S2. No: Systolic Murmur GI/Abdominal Exam: Normal Bowel Sounds, Soft, Non-Tender Extremities: Normal Inspection, Normal Range of Motion, Non-Tender, No Pedal Edema Skin: Incision (L hip, C/D/I) Neuro Extensive - Mental Status: Alert, Oriented x3 Neuro Extensive - Motor, Sensory, Reflexes: CN II-XII Intact Psychiatric: Alert, Normal Affect, Normal Mood - Patient Data Lab Results Last 24 hrs: Laboratory Results - last 24 hr 07/14/19 07/14/19 07/14/19 Range/Units 09:05 13:26 13:26 WBC 7.55 (4.0-11.0) K/uL RBC 3.39 L (4.30-5.90) M/uL Hgb 12.0 (12.0-16.0) g/dL Hct 36.1 (36.0-46.0) % MCV 106.5 H (80.0-98.0) fL MCH 35.4 H (27.0-32.0) pg MCHC 33.2 (31.0-37.0) g/dL RDW Std Deviation 51.9 (28.0-62.0) fl RDW Coeff of Janeen 14 (11.0-15.0) % Plt Count 290 (150-400) K/uL MPV 9.70 (7.40-12.00) fL Neut % (Auto) 72.3 (48.0-80.0) % Lymph % (Auto) 18.3 (16.0-40.0) % [place] % (Auto) 8.2 (0.0-15.0) % Eos % (Auto) 0.8 (0.0-7.0) % Baso % (Auto) 0.4 (0.0-1.5) % Neut # (Auto) 5.5 (1.4-5.7) K/uL Lymph # (Auto) 1.4 (0.6-2.4) K/uL [place] # (Auto) 0.6 (0.0-0.8) K/uL Eos # (Auto) 0.1 (0.0-0.7) K/uL Baso # (Auto) 0.0 (0.0-0.1) K/uL Nucleated RBC % 0.0 /100WBC Nucleated RBCs # 0 K/uL Sodium 142 (136-145) mmol/L Potassium 4.2 (3.5-5.1) mmol/L Chloride 106 (98-107) mmol/L Carbon Dioxide 26.2 (21.0-32.0) mmol/L BUN 28 H (7.0-18.0) mg/dL Creatinine 1.3 H (0.6-1.0) mg/dL Est Cr Clr Drug Dosing 23.96 mL/min Estimated GFR (MDRD) 39.2 ml/min Glucose 112 H (74-106) mg/dL POC Glucose 106 (60-110) mg/dL Calcium 9.1 (8.5-10.1) mg/dL Magnesium 1.8 (1.8-2.4) mg/dL Result Diagrams: 07/14/19 13:26 07/14/19 13:26 Consult PN Assessment/Plan Procedures: Procedures ASSAY OF AMYLASE (08/31/16) ASSAY OF CK (CPK) (03/19/19) ASSAY OF LACTIC ACID (03/19/19) ASSAY OF LIPASE (03/19/19) ASSAY OF TROPONIN QUANT (03/19/19) ASSAY THYROID STIM HORMONE (12/19/17) BLOOD CULTURE FOR BACTERIA (03/19/19) CHEST X-RAY 2VW FRONTAL&LATL (07/05/15) COMPLETE CBC AUTOMATED (04/22/14) COMPLETE CBC W/AUTO DIFF WBC (06/22/19) COMPREHEN METABOLIC PANEL (06/22/19) CT ABD & PELVIS W/O CONTRAST (08/31/16) CT HEAD/BRAIN W/O DYE (03/19/19) CT NECK SPINE W/O DYE (03/19/19) CULTURE SCREEN ONLY (02/15/17) DRAIN/INJ JOINT/BURSA W/O US (11/06/18) ECHO EXAM OF ABDOMEN (08/31/16) ELECTROCARDIOGRAM TRACING (06/22/19) EMERGENCY DEPT VISIT (03/19/19) EMERGENCY DEPT VISIT (02/15/17) GLUCOSE BLOOD TEST (03/19/19) GLYCOSYLATED HEMOGLOBIN TEST (06/22/19) HOT OR COLD PACKS THERAPY (08/02/16) HYDRATE IV INFUSION ADD-ON (03/19/19) LIPID PANEL (09/19/18) MANUAL THERAPY 1/> REGIONS (08/02/16) METABOLIC PANEL TOTAL CA (03/19/19) MICROBE SUSCEPTIBLE EMELIA (04/03/19) MRI BRAIN STEM W/O DYE (01/14/18) MRI LUMBAR SPINE W/O DYE (01/14/18) NEEDLE LOCALIZATION BY XRAY (11/06/18) OFFICE/OUTPATIENT VISIT EST (06/22/19) OFFICE/OUTPATIENT VISIT EST (03/17/19) OFFICE/OUTPATIENT VISIT EST (10/12/16) OFFICE/OUTPATIENT VISIT EST (03/04/14) PROTEIN E-PHORESIS SERUM (06/08/16) PROTHROMBIN TIME (06/22/19) PSYCH DIAG EVAL W/MED SRVCS (05/16/17) PT EVAL LOW COMPLEX 20 MIN (03/19/19) PT EVALUATION (07/09/16) ROUTINE VENIPUNCTURE (06/22/19) STREP A ASSAY W/OPTIC (02/15/17) THER/PROPH/DIAG IV INF ADDON (03/19/19) THER/PROPH/DIAG IV INF INIT (03/19/19) THERAPEUTIC ACTIVITIES (03/19/19) THERAPEUTIC EXERCISES (03/19/19) TX/PRO/DX INJ SAME DRUG SULFUR BURNER (03/19/19) UR ALBUMIN SEMIQUANTITATIVE (03/02/16) URINALYSIS AUTO W/O SCOPE (06/22/19) URINALYSIS AUTO W/SCOPE (04/28/19) URINE BACTERIA CULTURE (04/03/19) URINE CULTURE/COLONY COUNT (04/28/19) VITAMIN B-12 (12/19/17) X-RAY EXAM CHEST 1 VIEW (03/19/19) X-RAY EXAM CHEST 2 VIEWS (06/22/19) X-RAY EXAM HIP UNI 2-3 VIEWS (09/19/18) X-RAY EXAM L-S SPINE 2/3 VWS (06/08/16) X-RAY EXAM OF PELVIS (03/19/19) (1) S/P hip replacement SNOMED Code(s): 351165529, 927793768, 547968780, 482264269 Code(s): Z96.649 - PRESENCE OF UNSPECIFIED ARTIFICIAL HIP JOINT Current Visit: Yes Qualifiers: Laterality: left Qualified Code(s): Z96.642 - Presence of left artificial hip joint (2) Anxiety SNOMED Code(s): 82534604 Code(s): F41.9 - ANXIETY DISORDER, UNSPECIFIED Current Visit: Yes (3) PVD (peripheral vascular disease) SNOMED Code(s): 024155629 Code(s): I73.9 - PERIPHERAL VASCULAR DISEASE, UNSPECIFIED Current Visit: Yes (4) DM type 2 (diabetes mellitus, type 2) SNOMED Code(s): 75980780 Code(s): E11.9 - TYPE 2 DIABETES MELLITUS WITHOUT COMPLICATIONS Current Visit: No Qualifiers: Diabetes mellitus fdc insulin use: without fdc use (5) HTN (hypertension) SNOMED Code(s): 20096650 Code(s): I10 - ESSENTIAL (PRIMARY) HYPERTENSION Current Visit: No Qualifiers: Hypertension type: essential hypertension Qualified Code(s): I10 - Essential (primary) hypertension Problem List Initiated/Reviewed/Updated: Yes My Orders Last 24 Hours: My Active Orders 07/14/19 14:12 Blood Glucose Check, Bedside [RC] TIDAC 07/14/19 17:00 Insulin Aspart [NovoLOG] See Protocol SUBCUT TIDAC 07/14/19 21:00 Amitriptyline HCl [Amitriptyline HCl] 100 mg PO BEDTIME Verapamil [Calan SR] 180 mg PO BEDTIME atorvaSTATin [Lipitor] 10 mg PO BEDTIME 07/15/19 09:00 Escitalopram [Lexapro] 10 mg PO DAILY Febuxostat 40 mg PO DAILY Losartan 100 mg PO QAM hydroCHLOROthiazide 25 mg PO QAM Plan: This 84 year old female admitted with L anterior hip arthroplasty, hospitalist service consulted for medical management. 1. S/P L anterior hip: orders per Orthopedics. monitor for confusion with narcotic use. Does have history of UTIs, recommend quick removal of mcduffie. 2. HTN: Stable, continue home medications of Verapamil, Losartan and HCTZ. Monitor BMP. 3. DM Type 2: Stable. Hole Metformin during admission. Novolog SSI. Monitor BS TIDAC VTE prophylaxis: Would recommend when deemed appropriate by Orthopedics. Dispo: Plan to be discharged to [place] for rehabilitation. <Devendra Johns - Last Filed: 07/15/19 16:06> H&P History of Present Illness - General Admit Problem/Dx: Admission Diagnosis/Problem Admission Diagnosis/Problem Hip replacement planned I have seen and examined the patient independently of Debora Juarez CNP. I have reviewed and agree with the plan of care as outlined for this patient by her. I have discussed the case with her. Please see orders. Left Hip Pain Score (Numeric/FACES): 3 Exam - Vital Signs Vital Signs: Last Vital Signs Temp 37.2 C 07/15/19 11:45 Pulse 92 07/15/19 08:00 Resp 16 07/15/19 11:45 BP 138/70 07/15/19 11:45 Pulse Ox 95 07/15/19 11:45 - Patient Data Lab Results Last 24 hrs: Laboratory Results - last 24 hr 07/14/19 07/15/19 07/15/19 Range/Units 17:31 06:00 06:00 Hgb 11.1 L (12.0-16.0) g/dL Hct 34.2 L (36.0-46.0) % Sodium 141 (136-145) mmol/L Potassium 4.0 (3.5-5.1) mmol/L Chloride 105 (98-107) mmol/L Carbon Dioxide 27.5 (21.0-32.0) mmol/L BUN 22 H (7.0-18.0) mg/dL Creatinine 1.0 (0.6-1.0) mg/dL Est Cr Clr Drug Dosing 31.15 mL/min Estimated GFR (MDRD) 53.1 ml/min Glucose 115 H (74-106) mg/dL POC Glucose 106 (60-110) mg/dL Calcium 8.9 (8.5-10.1) mg/dL 07/15/19 07/15/19 Range/Units 06:09 12:03 Hgb (12.0-16.0) g/dL Hct (36.0-46.0) % Sodium (136-145) mmol/L Potassium (3.5-5.1) mmol/L Chloride (98-107) mmol/L Carbon Dioxide (21.0-32.0) mmol/L BUN (7.0-18.0) mg/dL Creatinine (0.6-1.0) mg/dL Est Cr Clr Drug Dosing mL/min Estimated GFR (MDRD) ml/min Glucose (74-106) mg/dL POC Glucose 107 123 H (60-110) mg/dL Calcium (8.5-10.1) mg/dL Result Diagrams: 07/15/19 06:00 07/15/19 06:00 Consult PN Assessment/Plan Procedures: Procedures ASSAY OF AMYLASE (08/31/16) ASSAY OF CK (CPK) (03/19/19) ASSAY OF LACTIC ACID (03/19/19) ASSAY OF LIPASE (03/19/19) ASSAY OF TROPONIN QUANT (03/19/19) ASSAY THYROID STIM HORMONE (12/19/17) BLOOD CULTURE FOR BACTERIA (03/19/19) CHEST X-RAY 2VW FRONTAL&LATL (07/05/15) COMPLETE CBC AUTOMATED (04/22/14) COMPLETE CBC W/AUTO DIFF WBC (06/22/19) COMPREHEN METABOLIC PANEL (06/22/19) CT ABD & PELVIS W/O CONTRAST (08/31/16) CT HEAD/BRAIN W/O DYE (03/19/19) CT NECK SPINE W/O DYE (03/19/19) CULTURE SCREEN ONLY (02/15/17) DRAIN/INJ JOINT/BURSA W/O US (11/06/18) ECHO EXAM OF ABDOMEN (08/31/16) ELECTROCARDIOGRAM TRACING (06/22/19) EMERGENCY DEPT VISIT (03/19/19) EMERGENCY DEPT VISIT (02/15/17) GLUCOSE BLOOD TEST (03/19/19) GLYCOSYLATED HEMOGLOBIN TEST (06/22/19) HOT OR COLD PACKS THERAPY (08/02/16) HYDRATE IV INFUSION ADD-ON (03/19/19) LIPID PANEL (09/19/18) MANUAL THERAPY 1/> REGIONS (08/02/16) METABOLIC PANEL TOTAL CA (03/19/19) MICROBE SUSCEPTIBLE EMELIA (04/03/19) MRI BRAIN STEM W/O DYE (01/14/18) MRI LUMBAR SPINE W/O DYE (01/14/18) NEEDLE LOCALIZATION BY XRAY (11/06/18) OFFICE/OUTPATIENT VISIT EST (06/22/19) OFFICE/OUTPATIENT VISIT EST (03/17/19) OFFICE/OUTPATIENT VISIT EST (10/12/16) OFFICE/OUTPATIENT VISIT EST (03/04/14) PROTEIN E-PHORESIS SERUM (06/08/16) PROTHROMBIN TIME (06/22/19) PSYCH DIAG EVAL W/MED SRVCS (05/16/17) PT EVAL LOW COMPLEX 20 MIN (03/19/19) PT EVALUATION (07/09/16) ROUTINE VENIPUNCTURE (06/22/19) STREP A ASSAY W/OPTIC (02/15/17) THER/PROPH/DIAG IV INF ADDON (03/19/19) THER/PROPH/DIAG IV INF INIT (03/19/19) THERAPEUTIC ACTIVITIES (03/19/19) THERAPEUTIC EXERCISES (03/19/19) TX/PRO/DX INJ SAME DRUG SULFUR BURNER (03/19/19) UR ALBUMIN SEMIQUANTITATIVE (03/02/16) URINALYSIS AUTO W/O SCOPE (06/22/19) URINALYSIS AUTO W/SCOPE (04/28/19) URINE BACTERIA CULTURE (04/03/19) URINE CULTURE/COLONY COUNT (04/28/19) VITAMIN B-12 (12/19/17) X-RAY EXAM CHEST 1 VIEW (03/19/19) X-RAY EXAM CHEST 2 VIEWS (06/22/19) X-RAY EXAM HIP UNI 2-3 VIEWS (09/19/18) X-RAY EXAM L-S SPINE 2/3 VWS (06/08/16) X-RAY EXAM OF PELVIS (03/19/19)
[2019-07-14] MEDS: Insulin Aspart 100 Units/ML 3 ML Pen SUBCUT SCH (17:59)
[2019-07-14] MEDS: Acetaminophen/HYDROcodone 325-7.5 MG Tab PO PRN (18:52)
[2019-07-14] MEDS: Amitriptyline 25 MG Tab PO SCH (20:40)
[2019-07-14] MEDS: atorvaSTATin 10 MG Tab PO SCH (20:40)
[2019-07-14] MEDS: Verapamil 180 MG Tab.ER PO SCH (20:42)
[2019-07-14] MEDS: ceFAZolin 1 GM in Premix Bag 1 BAG IV SCH (22:18)
[2019-07-15] MEDS: Acetaminophen/HYDROcodone 325-7.5 MG Tab PO PRN ×3 (05:56→17:43)
--- NOTE | 2019-07-15 06:48 | PCM48HPAN ---
Post Anesthesia Note - EVALUATION WITHIN 48HRS OF ANESTHETIC Vital Signs in Normal Range: Yes Patient Participated in Evaluation: Yes Respiratory Function Stable: Yes Airway Patent: Yes Cardiovascular Function Stable: Yes Hydration Status Stable: Yes Pain Control Satisfactory: Yes Nausea and Vomiting Control Satisfactory: Yes Mental Status Recovered: Yes Vital Signs: Last Vital Signs Temp 36.5 C 07/15/19 04:41 Pulse 77 07/15/19 04:41 Resp 16 07/15/19 04:41 BP 150/69 H 07/15/19 04:41 Pulse Ox 94 L 07/15/19 05:18 - COMMENTS/OBSERVATIONS Free Text/Narrative:: no anesthesia problems
[2019-07-15 06:55] LABS: CARBON DIOXIDE,CO2 27.5 mmol/L (21.0-32.0)
--- NOTE | 2019-07-15 07:05 | PCM.SN ---
- Free Text/Narrative Note: Subjective: pain controlled with meds. Patient has gotten up to chair. a little confused this AM. no cp/sob. oxygen saturation decreased to 85% but up to normal with 2L of oxygen NC. off now. O: afebrile vital signs stable left hip - minimal pain to ROM, leg lengths equal. dressing is clean/dry/ intact with no drainage or surrounding erythema. minimal swelling in thigh and none distally. A/P: POD #1 left CACHORRO - full weight bearing with walker. PT today - ecotrin for DVT prophylaxis - likely d/c to [facility] on POD #3.
[2019-07-15] MEDS: Insulin Aspart 100 Units/ML 3 ML Pen SUBCUT SCH ×3 (08:00→17:04)
--- NOTE | 2019-07-15 10:23 | PCM.CONSN ---
<Debora Juarez M - Last Filed: 07/15/19 10:18> - General Info Date of Service: 07/15/19 Admission Dx/Problem (Free Text): Admission Diagnosis/Problem Admission Diagnosis/Problem Hip replacement planned Subjective Update: Sitting up in chair, just about to ambulate with PT. Denies chest pain or SOB. Hip pain is about 6/10. No other concerns. Functional Status: Reports: Pain Controlled, Tolerating Diet - Review of Systems General: Reports: No Symptoms. Denies: Fatigue, Malaise HEENT: Reports: No Symptoms. Denies: Headaches, Sore Throat, Visual Changes Pulmonary: Reports: No Symptoms. Denies: Shortness of Breath Cardiovascular: Reports: No Symptoms. Denies: Chest Pain Gastrointestinal: Reports: No Symptoms. Denies: Abdominal Pain, Nausea, Vomiting Genitourinary: Reports: No Symptoms Musculoskeletal: Reports: Joint Pain (L hip pain) Skin: Reports: No Symptoms Neurological: Reports: No Symptoms Psychiatric: Reports: No Symptoms - Patient Data Vitals - Most Recent: Last Vital Signs Temp 97.7 F 07/15/19 08:00 Pulse 92 07/15/19 08:00 Resp 16 07/15/19 08:00 BP 100/58 L 07/15/19 08:00 Pulse Ox 94 L 07/15/19 08:00 Weight - Most Recent: 58.06 kg I&O - Last 24 Hours: Intake & Output 07/14/19 07/15/19 07/15/19 22:59 06:59 14:59 Intake Total 170 214 Output Total 300 250 Balance -130 -36 Lab Results Last 24 Hours: Laboratory Results - last 24 hr 07/14/19 07/14/19 07/14/19 Range/Units 13:26 13:26 17:31 WBC 7.55 (4.0-11.0) K/uL RBC 3.39 L (4.30-5.90) M/uL Hgb 12.0 (12.0-16.0) g/dL Hct 36.1 (36.0-46.0) % MCV 106.5 H (80.0-98.0) fL MCH 35.4 H (27.0-32.0) pg MCHC 33.2 (31.0-37.0) g/dL RDW Std Deviation 51.9 (28.0-62.0) fl RDW Coeff of Janeen 14 (11.0-15.0) % Plt Count 290 (150-400) K/uL MPV 9.70 (7.40-12.00) fL Neut % (Auto) 72.3 (48.0-80.0) % Lymph % (Auto) 18.3 (16.0-40.0) % Sandoval % (Auto) 8.2 (0.0-15.0) % Eos % (Auto) 0.8 (0.0-7.0) % Baso % (Auto) 0.4 (0.0-1.5) % Neut # (Auto) 5.5 (1.4-5.7) K/uL Lymph # (Auto) 1.4 (0.6-2.4) K/uL Sandoval # (Auto) 0.6 (0.0-0.8) K/uL Eos # (Auto) 0.1 (0.0-0.7) K/uL Baso # (Auto) 0.0 (0.0-0.1) K/uL Nucleated RBC % 0.0 /100WBC Nucleated RBCs # 0 K/uL Sodium 142 (136-145) mmol/L Potassium 4.2 (3.5-5.1) mmol/L Chloride 106 (98-107) mmol/L Carbon Dioxide 26.2 (21.0-32.0) mmol/L BUN 28 H (7.0-18.0) mg/dL Creatinine 1.3 H (0.6-1.0) mg/dL Est Cr Clr Drug Dosing 23.96 mL/min Estimated GFR (MDRD) 39.2 ml/min Glucose 112 H (74-106) mg/dL POC Glucose 106 (60-110) mg/dL Calcium 9.1 (8.5-10.1) mg/dL Magnesium 1.8 (1.8-2.4) mg/dL 07/15/19 07/15/19 07/15/19 Range/Units 06:00 06:00 06:09 WBC (4.0-11.0) K/uL RBC (4.30-5.90) M/uL Hgb 11.1 L (12.0-16.0) g/dL Hct 34.2 L (36.0-46.0) % MCV (80.0-98.0) fL MCH (27.0-32.0) pg MCHC (31.0-37.0) g/dL RDW Std Deviation (28.0-62.0) fl RDW Coeff of Janeen (11.0-15.0) % Plt Count (150-400) K/uL MPV (7.40-12.00) fL Neut % (Auto) (48.0-80.0) % Lymph % (Auto) (16.0-40.0) % Sandoval % (Auto) (0.0-15.0) % Eos % (Auto) (0.0-7.0) % Baso % (Auto) (0.0-1.5) % Neut # (Auto) (1.4-5.7) K/uL Lymph # (Auto) (0.6-2.4) K/uL Sandoval # (Auto) (0.0-0.8) K/uL Eos # (Auto) (0.0-0.7) K/uL Baso # (Auto) (0.0-0.1) K/uL Nucleated RBC % /100WBC Nucleated RBCs # K/uL Sodium 141 (136-145) mmol/L Potassium 4.0 (3.5-5.1) mmol/L Chloride 105 (98-107) mmol/L Carbon Dioxide 27.5 (21.0-32.0) mmol/L BUN 22 H (7.0-18.0) mg/dL Creatinine 1.0 (0.6-1.0) mg/dL Est Cr Clr Drug Dosing 31.15 mL/min Estimated GFR (MDRD) 53.1 ml/min Glucose 115 H (74-106) mg/dL POC Glucose 107 (60-110) mg/dL Calcium 8.9 (8.5-10.1) mg/dL Magnesium (1.8-2.4) mg/dL Med Orders - Current: Current Medications Hydrocodone Bitart/Acetaminophen ([place] 325-7.5 Mg) 1 - 2 tab PO Q4H PRN PRN Reason: Pain Last Admin: 07/15/19 05:56 Dose: 2 tab Al Hydroxide/Mg Hydroxide (Mag-Al Plus) 30 ml PO Q4H PRN PRN Reason: Indigestion Amitriptyline HCl (Elavil) 100 mg PO BEDTIME [facility] Last Admin: 07/14/19 20:40 Dose: 100 mg Aspirin (Aspirin) 325 mg PO BID [facility] Atorvastatin Calcium (Lipitor) 10 mg PO BEDTIME [facility] Last Admin: 07/14/19 20:40 Dose: 10 mg Bisacodyl (Dulcolax) 10 mg RECTAL DAILY PRN PRN Reason: Constipation Diphenhydramine HCl (Benadryl) 25 - 50 mg PO Q6H PRN PRN Reason: Itching Docusate Sodium (Colace) 100 mg PO BID PRN PRN Reason: Constipation Escitalopram Oxalate (Lexapro) 10 mg PO DAILY [facility] Famotidine (Pepcid) 40 mg PO DAILY [facility] Hydrochlorothiazide (Hydrochlorothiazide) 25 mg PO QAM [facility] Cefazolin Sodium/Dextrose 2 gm (/ Premix) 50 mls @ 100 mls/hr IV ONETIME [facility] Lactated Ringer's (Ringers, Lactated) 1,000 mls @ 100 mls/hr IV ASDIRECTED [facility] Last Admin: 07/14/19 23:59 Dose: 100 mls/hr Cefazolin Sodium/Dextrose 1 gm (/ Premix) 50 mls @ 100 mls/hr IV Q12H [facility] Stop: 07/15/19 10:29 Last Admin: 07/14/19 22:18 Dose: 100 mls/hr Insulin Aspart (Novolog) 0 unit SUBCUT TIDAC [facility]; Protocol Last Admin: 07/15/19 08:00 Dose: Not Given Losartan Potassium (Cozaar) 100 mg PO QAM [facility] Morphine Sulfate (Morphine) 1 - 3 mg IVPUSH Q3H PRN PRN Reason: Pain Last Admin: 07/14/19 16:58 Dose: 2 mg Ondansetron HCl (Zofran) 4 mg IVPUSH Q6H PRN PRN Reason: Nausea/Vomiting Febuxostat 40 Mg 1 each PO DAILY [facility] Polyethylene Glycol (Miralax) 17 gm PO DAILY [facility] Sodium Chloride (Saline Flush) 10 ml FLUSH ASDIRECTED PRN PRN Reason: Keep Vein Open Sodium Chloride (Saline Flush) 2.5 ml FLUSH ASDIRECTED PRN PRN Reason: Keep Vein Open Verapamil HCl (Calan Sr) 180 mg PO BEDTIME [facility] Last Admin: 07/14/19 20:42 Dose: 180 mg Discontinued Medications Cefazolin Sodium (Ancef) Confirm Administered Dose 2 gm .ROUTE .STK-MED ONE Stop: 07/14/19 10:15 Fentanyl (Sublimaze) Confirm Administered Dose 100 mcg .ROUTE .STK-MED ONE Stop: 07/14/19 09:24 Sodium Chloride (Normal Saline) Confirm Administered Dose 20 mls @ as directed .ROUTE .STK-MED ONE Stop: 07/14/19 10:15 Lidocaine (Xylocaine-Mpf 2%) Confirm Administered Dose 5 ml .ROUTE .STK-MED ONE Stop: 07/14/19 09:25 Midazolam HCl (Versed 1 Mg/Ml) Confirm Administered Dose 2 mg .ROUTE .STK-MED ONE Stop: 07/14/19 09:24 Phenylephrine HCl (Phenylephrine In Ns 100 Mcg/Ml) Confirm Administered Dose 1 mg .ROUTE .STK-MED ONE Stop: 07/14/19 11:25 Propofol (Diprivan 20 Ml) Confirm Administered Dose 400 mg .ROUTE .ST-MED ONE Stop: 07/14/19 10:02 Tranexamic Acid (Cyklokapron) 2,000 mg IV ONETIME ONE Stop: 07/14/19 10:01 Last Admin: 07/14/19 13:16 Dose: Not Given Tranexamic Acid (Cyklokapron) Confirm Administered Dose 1,000 mg .ROUTE .STK- MED ONE Stop: 07/14/19 08:22 Tranexamic Acid (Cyklokapron) Confirm Administered Dose 1,000 mg .ROUTE .ST- MED ONE Stop: 07/14/19 08:25 - Exam General: Alert, Oriented, Cooperative, No Acute Distress Lungs: Clear to Auscultation, Normal Respiratory Effort Cardiovascular: Regular Rate, Regular Rhythm GI/Abdominal Exam: Normal Bowel Sounds, Soft, Non-Tender, No Organomegaly Extremities: Normal Inspection, Normal Range of Motion, Non-Tender, No Pedal Edema Wound/Incisions: Dressing Dry and Intact (L hip) Neurological: No New Focal Deficit Psy/Mental Status: Alert, Normal Affect, Normal Mood Consult PN Assessment/Plan POD#: 1 Procedures: Procedures ASSAY OF AMYLASE (08/31/16) ASSAY OF CK (CPK) (03/19/19) ASSAY OF LACTIC ACID (03/19/19) ASSAY OF LIPASE (03/19/19) ASSAY OF TROPONIN QUANT (03/19/19) ASSAY THYROID STIM HORMONE (12/19/17) BLOOD CULTURE FOR BACTERIA (03/19/19) CHEST X-RAY 2VW FRONTAL&LATL (07/05/15) COMPLETE CBC AUTOMATED (04/22/14) COMPLETE CBC W/AUTO DIFF WBC (06/22/19) COMPREHEN METABOLIC PANEL (06/22/19) CT ABD & PELVIS W/O CONTRAST (08/31/16) CT HEAD/BRAIN W/O DYE (03/19/19) CT NECK SPINE W/O DYE (03/19/19) CULTURE SCREEN ONLY (02/15/17) DRAIN/INJ JOINT/BURSA W/O US (11/06/18) ECHO EXAM OF ABDOMEN (08/31/16) ELECTROCARDIOGRAM TRACING (06/22/19) EMERGENCY DEPT VISIT (03/19/19) EMERGENCY DEPT VISIT (02/15/17) GLUCOSE BLOOD TEST (03/19/19) GLYCOSYLATED HEMOGLOBIN TEST (06/22/19) HOT OR COLD PACKS THERAPY (08/02/16) HYDRATE IV INFUSION ADD-ON (03/19/19) LIPID PANEL (09/19/18) MANUAL THERAPY 1/> REGIONS (08/02/16) METABOLIC PANEL TOTAL CA (03/19/19) MICROBE SUSCEPTIBLE EMELIA (04/03/19) MRI BRAIN STEM W/O DYE (01/14/18) MRI LUMBAR SPINE W/O DYE (01/14/18) NEEDLE LOCALIZATION BY XRAY (11/06/18) OFFICE/OUTPATIENT VISIT EST (06/22/19) OFFICE/OUTPATIENT VISIT EST (03/17/19) OFFICE/OUTPATIENT VISIT EST (10/12/16) OFFICE/OUTPATIENT VISIT EST (03/04/14) PROTEIN E-PHORESIS SERUM (06/08/16) PROTHROMBIN TIME (06/22/19) PSYCH DIAG EVAL W/MED SRVCS (05/16/17) PT EVAL LOW COMPLEX 20 MIN (03/19/19) PT EVALUATION (07/09/16) ROUTINE VENIPUNCTURE (06/22/19) STREP A ASSAY W/OPTIC (02/15/17) THER/PROPH/DIAG IV INF ADDON (03/19/19) THER/PROPH/DIAG IV INF INIT (03/19/19) THERAPEUTIC ACTIVITIES (03/19/19) THERAPEUTIC EXERCISES (03/19/19) TX/PRO/DX INJ SAME DRUG FIREFIGHTER (03/19/19) UR ALBUMIN SEMIQUANTITATIVE (03/02/16) URINALYSIS AUTO W/O SCOPE (06/22/19) URINALYSIS AUTO W/SCOPE (04/28/19) URINE BACTERIA CULTURE (04/03/19) URINE CULTURE/COLONY COUNT (04/28/19) VITAMIN B-12 (12/19/17) X-RAY EXAM CHEST 1 VIEW (03/19/19) X-RAY EXAM CHEST 2 VIEWS (06/22/19) X-RAY EXAM HIP UNI 2-3 VIEWS (09/19/18) X-RAY EXAM L-S SPINE 2/3 VWS (06/08/16) X-RAY EXAM OF PELVIS (03/19/19) (1) S/P hip replacement SNOMED Code(s): 190730444, 759055640, 199652116, 105087225 Code(s): Z96.649 - PRESENCE OF UNSPECIFIED ARTIFICIAL HIP JOINT Current Visit: Yes Qualifiers: Laterality: left Qualified Code(s): Z96.642 - Presence of left artificial hip joint (2) Anxiety SNOMED Code(s): 97589236 Code(s): F41.9 - ANXIETY DISORDER, UNSPECIFIED Current Visit: Yes (3) PVD (peripheral vascular disease) SNOMED Code(s): 314499978 Code(s): I73.9 - PERIPHERAL VASCULAR DISEASE, UNSPECIFIED Current Visit: Yes (4) DM type 2 (diabetes mellitus, type 2) SNOMED Code(s): 13684285 Code(s): E11.9 - TYPE 2 DIABETES MELLITUS WITHOUT COMPLICATIONS Current Visit: No Qualifiers: Diabetes mellitus salvage determiner insulin use: without salvage determiner use (5) HTN (hypertension) SNOMED Code(s): 52740100 Code(s): I10 - ESSENTIAL (PRIMARY) HYPERTENSION Current Visit: No Qualifiers: Hypertension type: essential hypertension Qualified Code(s): I10 - Essential (primary) hypertension Problem List Initiated/Reviewed/Updated: Yes My Orders Last 24 Hours: My Active Orders 07/14/19 14:12 Blood Glucose Check, Bedside [RC] TIDAC 07/14/19 17:00 Insulin Aspart [NovoLOG] See Protocol SUBCUT TIDAC 07/14/19 21:00 Amitriptyline [Elavil] 100 mg PO BEDTIME Verapamil [Calan SR] 180 mg PO BEDTIME atorvaSTATin [Lipitor] 10 mg PO BEDTIME 07/15/19 09:00 Escitalopram [Lexapro] 10 mg PO DAILY Losartan [Cozaar] 100 mg PO QAM Patient's Own Medication [Ptom] 1 each PO DAILY hydroCHLOROthiazide 25 mg PO QAM 07/16/19 05:11 BMP [BASIC METABOLIC PANEL,BMP] [CHEM] AM 07/17/19 05:11 BMP [BASIC METABOLIC PANEL,BMP] [CHEM] AM Plan: This 84 year old female admitted with L anterior hip arthroplasty, hospitalist service consulted for medical management. 1. S/P L anterior hip: orders per Orthopedics. monitor for confusion with narcotic use. Does have history of UTIs, mcduffie removed this morning. 2. HTN: Stable, continue home medications of Verapamil, Losartan and HCTZ. Monitor BMP. 3. DM Type 2: Stable. Hole Metformin during admission. Novolog SSI. Monitor BS TIDAC VTE prophylaxis: Would recommend when deemed appropriate by Orthopedics. Dispo: Plan to be discharged to [facility] for rehabilitation on Saturday <Devendra Johns - Last Filed: 07/15/19 16:09> - General Info Admission Dx/Problem (Free Text): I have seen and examined the patient independently of Debora Juarez CNP. I have reviewed and agree with the plan of care as outlined for this patient by her. I have discussed the case with her. Please see orders. Consider placement at group home facility for rehabilitation. - Patient Data Vitals - Most Recent: Last Vital Signs Temp 37.2 C 07/15/19 11:45 Pulse 92 07/15/19 08:00 Resp 16 07/15/19 11:45 BP 138/70 07/15/19 11:45 Pulse Ox 95 07/15/19 11:45 I&O - Last 24 Hours: Intake & Output 07/15/19 07/15/19 07/15/19 06:59 14:59 22:59 Intake Total 214 50 Output Total 250 Balance -36 50 Lab Results Last 24 Hours: Laboratory Results - last 24 hr 07/14/19 07/15/19 07/15/19 Range/Units 17:31 06:00 06:00 Hgb 11.1 L (12.0-16.0) g/dL Hct 34.2 L (36.0-46.0) % Sodium 141 (136-145) mmol/L Potassium 4.0 (3.5-5.1) mmol/L Chloride 105 (98-107) mmol/L Carbon Dioxide 27.5 (21.0-32.0) mmol/L BUN 22 H (7.0-18.0) mg/dL Creatinine 1.0 (0.6-1.0) mg/dL Est Cr Clr Drug Dosing 31.15 mL/min Estimated GFR (MDRD) 53.1 ml/min Glucose 115 H (74-106) mg/dL POC Glucose 106 (60-110) mg/dL Calcium 8.9 (8.5-10.1) mg/dL 07/15/19 07/15/19 Range/Units 06:09 12:03 Hgb (12.0-16.0) g/dL Hct (36.0-46.0) % Sodium (136-145) mmol/L Potassium (3.5-5.1) mmol/L Chloride (98-107) mmol/L Carbon Dioxide (21.0-32.0) mmol/L BUN (7.0-18.0) mg/dL Creatinine (0.6-1.0) mg/dL Est Cr Clr Drug Dosing mL/min Estimated GFR (MDRD) ml/min Glucose (74-106) mg/dL POC Glucose 107 123 H (60-110) mg/dL Calcium (8.5-10.1) mg/dL Med Orders - Current: Current Medications Hydrocodone Bitart/Acetaminophen ([place] 325-7.5 Mg) 1 - 2 tab PO Q4H PRN PRN Reason: Pain Last Admin: 07/15/19 10:53 Dose: 2 tab Al Hydroxide/Mg Hydroxide (Mag-Al Plus) 30 ml PO Q4H PRN PRN Reason: Indigestion Amitriptyline HCl (Elavil) 100 mg PO BEDTIME [facility] Last Admin: 07/14/19 20:40 Dose: 100 mg Aspirin (Aspirin) 325 mg PO BID [facility] Last Admin: 07/15/19 10:43 Dose: 325 mg Atorvastatin Calcium (Lipitor) 10 mg PO BEDTIME [facility] Last Admin: 07/14/19 20:40 Dose: 10 mg Bisacodyl (Dulcolax) 10 mg RECTAL DAILY PRN PRN Reason: Constipation Diphenhydramine HCl (Benadryl) 25 - 50 mg PO Q6H PRN PRN Reason: Itching Docusate Sodium (Colace) 100 mg PO BID PRN PRN Reason: Constipation Escitalopram Oxalate (Lexapro) 10 mg PO DAILY [facility] Last Admin: 07/15/19 10:41 Dose: 10 mg Famotidine (Pepcid) 40 mg PO DAILY [facility] Last Admin: 07/15/19 10:44 Dose: 40 mg Hydrochlorothiazide (Hydrochlorothiazide) 25 mg PO QAM [facility] Last Admin: 07/15/19 10:41 Dose: 25 mg Cefazolin Sodium/Dextrose 2 gm (/ Premix) 50 mls @ 100 mls/hr IV ONETIME [facility] Lactated Ringer's (Ringers, Lactated) 1,000 mls @ 100 mls/hr IV ASDIRECTED [facility] Last Admin: 07/14/19 23:59 Dose: 100 mls/hr Insulin Aspart (Novolog) 0 unit SUBCUT TIDAC [facility]; Protocol Last Admin: 07/15/19 12:53 Dose: Not Given Losartan Potassium (Cozaar) 100 mg PO QAM [facility] Last Admin: 07/15/19 10:49 Dose: 100 mg Morphine Sulfate (Morphine) 1 - 3 mg IVPUSH Q3H PRN PRN Reason: Pain Last Admin: 07/14/19 16:58 Dose: 2 mg Ondansetron HCl (Zofran) 4 mg IVPUSH Q6H PRN PRN Reason: Nausea/Vomiting Febuxostat 40 Mg 1 each PO DAILY [facility] Last Admin: 07/15/19 10:52 Dose: Not Given Polyethylene Glycol (Miralax) 17 gm PO DAILY [facility] Last Admin: 07/15/19 10:52 Dose: Not Given Sodium Chloride (Saline Flush) 10 ml FLUSH ASDIRECTED PRN PRN Reason: Keep Vein Open Sodium Chloride (Saline Flush) 2.5 ml FLUSH ASDIRECTED PRN PRN Reason: Keep Vein Open Verapamil HCl (Calan Sr) 180 mg PO BEDTIME [facility] Last Admin: 07/14/19 20:42 Dose: 180 mg Discontinued Medications Cefazolin Sodium (Ancef) Confirm Administered Dose 2 gm .ROUTE .STK-MED ONE Stop: 07/14/19 10:15 Fentanyl (Sublimaze) Confirm Administered Dose 100 mcg .ROUTE .STK-MED ONE Stop: 07/14/19 09:24 Sodium Chloride (Normal Saline) Confirm Administered Dose 20 mls @ as directed .ROUTE .STK-MED ONE Stop: 07/14/19 10:15 Cefazolin Sodium/Dextrose 1 gm (/ Premix) 50 mls @ 100 mls/hr IV Q12H [facility] Stop: 07/15/19 10:29 Last Admin: 07/15/19 10:53 Dose: 100 mls/hr Lidocaine (Xylocaine-Mpf 2%) Confirm Administered Dose 5 ml .ROUTE .STK-MED ONE Stop: 07/14/19 09:25 Midazolam HCl (Versed 1 Mg/Ml) Confirm Administered Dose 2 mg .ROUTE .STK-MED ONE Stop: 07/14/19 09:24 Phenylephrine HCl (Phenylephrine In Ns 100 Mcg/Ml) Confirm Administered Dose 1 mg .ROUTE .STK-MED ONE Stop: 07/14/19 11:25 Propofol (Diprivan 20 Ml) Confirm Administered Dose 400 mg .ROUTE .STK-MED ONE Stop: 07/14/19 10:02 Tranexamic Acid (Cyklokapron) 2,000 mg IV ONETIME ONE Stop: 07/14/19 10:01 Last Admin: 07/14/19 13:16 Dose: Not Given Tranexamic Acid (Cyklokapron) Confirm Administered Dose 1,000 mg .ROUTE .STK- MED ONE Stop: 07/14/19 08:22 Tranexamic Acid (Cyklokapron) Confirm Administered Dose 1,000 mg .ROUTE .STK- MED ONE Stop: 07/14/19 08:25 Consult PN Assessment/Plan Procedures: Procedures ASSAY OF AMYLASE (08/31/16) ASSAY OF CK (CPK) (03/19/19) ASSAY OF LACTIC ACID (03/19/19) ASSAY OF LIPASE (03/19/19) ASSAY OF TROPONIN QUANT (03/19/19) ASSAY THYROID STIM HORMONE (12/19/17) BLOOD CULTURE FOR BACTERIA (03/19/19) CHEST X-RAY 2VW FRONTAL&LATL (07/05/15) COMPLETE CBC AUTOMATED (04/22/14) COMPLETE CBC W/AUTO DIFF WBC (06/22/19) COMPREHEN METABOLIC PANEL (06/22/19) CT ABD & PELVIS W/O CONTRAST (08/31/16) CT HEAD/BRAIN W/O DYE (03/19/19) CT NECK SPINE W/O DYE (03/19/19) CULTURE SCREEN ONLY (02/15/17) DRAIN/INJ JOINT/BURSA W/O US (11/06/18) ECHO EXAM OF ABDOMEN (08/31/16) ELECTROCARDIOGRAM TRACING (06/22/19) EMERGENCY DEPT VISIT (03/19/19) EMERGENCY DEPT VISIT (02/15/17) GLUCOSE BLOOD TEST (03/19/19) GLYCOSYLATED HEMOGLOBIN TEST (06/22/19) HOT OR COLD PACKS THERAPY (08/02/16) HYDRATE IV INFUSION ADD-ON (03/19/19) LIPID PANEL (09/19/18) MANUAL THERAPY 1/> REGIONS (08/02/16) METABOLIC PANEL TOTAL CA (03/19/19) MICROBE SUSCEPTIBLE EMELIA (04/03/19) MRI BRAIN STEM W/O DYE (01/14/18) MRI LUMBAR SPINE W/O DYE (01/14/18) NEEDLE LOCALIZATION BY XRAY (11/06/18) OFFICE/OUTPATIENT VISIT EST (06/22/19) OFFICE/OUTPATIENT VISIT EST (03/17/19) OFFICE/OUTPATIENT VISIT EST (10/12/16) OFFICE/OUTPATIENT VISIT EST (03/04/14) PROTEIN E-PHORESIS SERUM (06/08/16) PROTHROMBIN TIME (06/22/19) PSYCH DIAG EVAL W/MED SRVCS (05/16/17) PT EVAL LOW COMPLEX 20 MIN (03/19/19) PT EVALUATION (07/09/16) ROUTINE VENIPUNCTURE (06/22/19) STREP A ASSAY W/OPTIC (02/15/17) THER/PROPH/DIAG IV INF ADDON (03/19/19) THER/PROPH/DIAG IV INF INIT (03/19/19) THERAPEUTIC ACTIVITIES (03/19/19) THERAPEUTIC EXERCISES (03/19/19) TX/PRO/DX INJ SAME DRUG FIREFIGHTER (03/19/19) UR ALBUMIN SEMIQUANTITATIVE (03/02/16) URINALYSIS AUTO W/O SCOPE (06/22/19) URINALYSIS AUTO W/SCOPE (04/28/19) URINE BACTERIA CULTURE (04/03/19) URINE CULTURE/COLONY COUNT (04/28/19) VITAMIN B-12 (12/19/17) X-RAY EXAM CHEST 1 VIEW (03/19/19) X-RAY EXAM CHEST 2 VIEWS (06/22/19) X-RAY EXAM HIP UNI 2-3 VIEWS (09/19/18) X-RAY EXAM L-S SPINE 2/3 VWS (06/08/16) X-RAY EXAM OF PELVIS (03/19/19)
[2019-07-15] MEDS: Escitalopram 10 MG Tab PO SCH (10:41)
[2019-07-15] MEDS: Hydrochlorothiazide 25 MG Tab PO SCH (10:41)
[2019-07-15] MEDS: Aspirin 325 MG Tab PO SCH ×2 (10:43→20:41)
[2019-07-15] MEDS: Famotidine 20 MG Tab PO SCH (10:44)
[2019-07-15] MEDS: Losartan 50 MG Tab PO SCH (10:49)
[2019-07-15] MEDS: Polyethylene Glycol 3350 Powder 17 GM Packet PO SCH (10:52)
[2019-07-15] MEDS: ceFAZolin 1 GM in Premix Bag 1 BAG IV SCH (10:53)
[2019-07-15] MEDS: Amitriptyline 25 MG Tab PO SCH (20:41)
[2019-07-15] MEDS: atorvaSTATin 10 MG Tab PO SCH (20:41)
[2019-07-15] MEDS: Verapamil 180 MG Tab.ER PO SCH (20:42)
[2019-07-16] MEDS: Acetaminophen/HYDROcodone 325-7.5 MG Tab PO PRN ×2 (04:01→09:46)
[2019-07-16 07:09] LABS: CARBON DIOXIDE,CO2 27.5 mmol/L (21.0-32.0); POTASSIUM,K 3.9 mmol/L (3.5-5.1)
--- NOTE | 2019-07-16 07:12 | PCM.SN ---
- Free Text/Narrative Note: Subjective: pain controlled with meds. Patient has gotten up to chair and ambulated in hallway. no cp/sob. oxygen saturation decreased to 85% overnight but up to normal with 1L of oxygen NC. off now. O: afebrile vital signs stable left hip - minimal pain to ROM, leg lengths equal. dressing is clean/dry/ intact with no drainage or surrounding erythema. minimal swelling in thigh and none distally. hgb 11.1 A/P: POD #2 left CACHORRO - full weight bearing with walker. PT today - ecotrin for DVT prophylaxis - likely d/c to [facility] on POD #3.
[2019-07-16] MEDS: Insulin Aspart 100 Units/ML 3 ML Pen SUBCUT SCH ×3 (08:19→18:06)
--- NOTE | 2019-07-16 08:39 | PCM.PN ---
- Patient Data Vitals - Most Recent: Last Vital Signs Temp 97.7 F 07/16/19 08:07 Pulse 93 07/16/19 08:07 Resp 18 07/16/19 08:07 BP 96/46 L 07/16/19 08:07 Pulse Ox 92 L 07/16/19 08:07 Weight - Most Recent: 58.06 kg I&O - Last 24 Hours: Intake & Output 07/15/19 07/16/19 07/16/19 22:59 06:59 14:59 Intake Total 860 370 Output Total 740 400 Balance 120 -30 Lab Results Last 24 Hours: Laboratory Results - last 24 hr 07/14/19 07/15/19 07/15/19 Range/Units 12:41 12:03 16:48 Hgb (12.0-16.0) g/dL Hct (36.0-46.0) % Sodium (136-145) mmol/L Potassium (3.5-5.1) mmol/L Chloride (98-107) mmol/L Carbon Dioxide (21.0-32.0) mmol/L BUN (7.0-18.0) mg/dL Creatinine (0.6-1.0) mg/dL Est Cr Clr Drug Dosing mL/min Estimated GFR (MDRD) ml/min Glucose (74-106) mg/dL POC Glucose 111 H 123 H 117 H (60-110) mg/dL Calcium (8.5-10.1) mg/dL 07/16/19 07/16/19 07/16/19 Range/Units 06:03 06:15 06:15 Hgb 11.1 L (12.0-16.0) g/dL Hct 34.4 L (36.0-46.0) % Sodium 140 (136-145) mmol/L Potassium 3.9 (3.5-5.1) mmol/L Chloride 103 (98-107) mmol/L Carbon Dioxide 27.5 (21.0-32.0) mmol/L BUN 29 H (7.0-18.0) mg/dL Creatinine 1.3 H (0.6-1.0) mg/dL Est Cr Clr Drug Dosing 23.96 mL/min Estimated GFR (MDRD) 39.2 ml/min Glucose 141 H (74-106) mg/dL POC Glucose 139 H (60-110) mg/dL Calcium 9.2 (8.5-10.1) mg/dL Med Orders - Current: Current Medications Hydrocodone Bitart/Acetaminophen ([place] 325-7.5 Mg) 1 - 2 tab PO Q4H PRN PRN Reason: Pain Last Admin: 07/16/19 04:01 Dose: 1 tab Al Hydroxide/Mg Hydroxide (Mag-Al Plus) 30 ml PO Q4H PRN PRN Reason: Indigestion Amitriptyline HCl (Elavil) 100 mg PO BEDTIME [facility] Last Admin: 07/15/19 20:41 Dose: 100 mg Aspirin (Aspirin) 325 mg PO BID [facility] Last Admin: 07/15/19 20:41 Dose: 325 mg Atorvastatin Calcium (Lipitor) 10 mg PO BEDTIME [facility] Last Admin: 07/15/19 20:41 Dose: 10 mg Bisacodyl (Dulcolax) 10 mg RECTAL DAILY PRN PRN Reason: Constipation Diphenhydramine HCl (Benadryl) 25 - 50 mg PO Q6H PRN PRN Reason: Itching Docusate Sodium (Colace) 100 mg PO BID PRN PRN Reason: Constipation Escitalopram Oxalate (Lexapro) 10 mg PO DAILY [facility] Last Admin: 07/15/19 10:41 Dose: 10 mg Famotidine (Pepcid) 40 mg PO DAILY [facility] Last Admin: 07/15/19 10:44 Dose: 40 mg Hydrochlorothiazide (Hydrochlorothiazide) 25 mg PO QAM [facility] Last Admin: 07/15/19 10:41 Dose: 25 mg Cefazolin Sodium/Dextrose 2 gm (/ Premix) 50 mls @ 100 mls/hr IV ONETIME [facility] Lactated Ringer's (Ringers, Lactated) 1,000 mls @ 100 mls/hr IV ASDIRECTED [facility] Last Admin: 07/14/19 23:59 Dose: 100 mls/hr Insulin Aspart (Novolog) 0 unit SUBCUT TIDAC [facility]; Protocol Last Admin: 07/16/19 08:19 Dose: Not Given Losartan Potassium (Cozaar) 100 mg PO QAM [facility] Last Admin: 07/15/19 10:49 Dose: 100 mg Morphine Sulfate (Morphine) 1 - 3 mg IVPUSH Q3H PRN PRN Reason: Pain Last Admin: 07/14/19 16:58 Dose: 2 mg Ondansetron HCl (Zofran) 4 mg IVPUSH Q6H PRN PRN Reason: Nausea/Vomiting Febuxostat 40 Mg 1 each PO DAILY [facility] Last Admin: 07/15/19 10:52 Dose: Not Given Polyethylene Glycol (Miralax) 17 gm PO DAILY [facility] Last Admin: 07/15/19 10:52 Dose: Not Given Sodium Chloride (Saline Flush) 10 ml FLUSH ASDIRECTED PRN PRN Reason: Keep Vein Open Sodium Chloride (Saline Flush) 2.5 ml FLUSH ASDIRECTED PRN PRN Reason: Keep Vein Open Verapamil HCl (Calan Sr) 180 mg PO BEDTIME [facility] Last Admin: 07/15/19 20:42 Dose: 180 mg Discontinued Medications Cefazolin Sodium (Ancef) Confirm Administered Dose 2 gm .ROUTE .STK-MED ONE Stop: 07/14/19 10:15 Fentanyl (Sublimaze) Confirm Administered Dose 100 mcg .ROUTE .STK-MED ONE Stop: 07/14/19 09:24 Sodium Chloride (Normal Saline) Confirm Administered Dose 20 mls @ as directed .ROUTE .STK-MED ONE Stop: 07/14/19 10:15 Cefazolin Sodium/Dextrose 1 gm (/ Premix) 50 mls @ 100 mls/hr IV Q12H [facility] Stop: 07/15/19 10:29 Last Admin: 07/15/19 10:53 Dose: 100 mls/hr Lidocaine (Xylocaine-Mpf 2%) Confirm Administered Dose 5 ml .ROUTE .STK-MED ONE Stop: 07/14/19 09:25 Midazolam HCl (Versed 1 Mg/Ml) Confirm Administered Dose 2 mg .ROUTE .STK-MED ONE Stop: 07/14/19 09:24 Phenylephrine HCl (Phenylephrine In Ns 100 Mcg/Ml) Confirm Administered Dose 1 mg .ROUTE .STK-MED ONE Stop: 07/14/19 11:25 Propofol (Diprivan 20 Ml) Confirm Administered Dose 400 mg .ROUTE .STK-MED ONE Stop: 07/14/19 10:02 Tranexamic Acid (Cyklokapron) 2,000 mg IV ONETIME ONE Stop: 07/14/19 10:01 Last Admin: 07/14/19 13:16 Dose: Not Given Tranexamic Acid (Cyklokapron) Confirm Administered Dose 1,000 mg .ROUTE .STK- MED ONE Stop: 07/14/19 08:22 Tranexamic Acid (Cyklokapron) Confirm Administered Dose 1,000 mg .ROUTE .STK- MED ONE Stop: 07/14/19 08:25
--- NOTE | 2019-07-16 08:47 | PCM.CONSN ---
<Kirsten Ta - Last Filed: 07/16/19 09:26> - General Info Date of Service: 07/16/19 Subjective Update: Patient is post op day 2 from left anterior hip. Reports hip pain under control. Has been up in the chair and walking. She required oxygen last night after desatting down to 85% on RA. She was placed on 1 L of oxygen with improvement in saturation. She reports at that time she did not feel short of breath and was not having any trouble breathing. She is not on oxygen at home. Currently satting well on RA. - Review of Systems General: Reports: No Symptoms HEENT: Reports: No Symptoms Pulmonary: Reports: No Symptoms Cardiovascular: Reports: No Symptoms Gastrointestinal: Reports: No Symptoms Genitourinary: Reports: No Symptoms Musculoskeletal: Reports: No Symptoms Skin: Reports: No Symptoms Neurological: Reports: No Symptoms Psychiatric: Reports: No Symptoms - Patient Data Vitals - Most Recent: Last Vital Signs Temp 97.7 F 07/16/19 08:07 Pulse 93 07/16/19 08:07 Resp 18 07/16/19 08:07 BP 96/46 L 07/16/19 08:07 Pulse Ox 92 L 07/16/19 08:07 Weight - Most Recent: 58.06 kg I&O - Last 24 Hours: Intake & Output 07/15/19 07/16/19 07/16/19 22:59 06:59 14:59 Intake Total 860 370 Output Total 740 400 Balance 120 -30 Lab Results Last 24 Hours: Laboratory Results - last 24 hr 07/14/19 07/15/19 07/15/19 Range/Units 12:41 12:03 16:48 Hgb (12.0-16.0) g/dL Hct (36.0-46.0) % Sodium (136-145) mmol/L Potassium (3.5-5.1) mmol/L Chloride (98-107) mmol/L Carbon Dioxide (21.0-32.0) mmol/L BUN (7.0-18.0) mg/dL Creatinine (0.6-1.0) mg/dL Est Cr Clr Drug Dosing mL/min Estimated GFR (MDRD) ml/min Glucose (74-106) mg/dL POC Glucose 111 H 123 H 117 H (60-110) mg/dL Calcium (8.5-10.1) mg/dL 07/16/19 07/16/19 07/16/19 Range/Units 06:03 06:15 06:15 Hgb 11.1 L (12.0-16.0) g/dL Hct 34.4 L (36.0-46.0) % Sodium 140 (136-145) mmol/L Potassium 3.9 (3.5-5.1) mmol/L Chloride 103 (98-107) mmol/L Carbon Dioxide 27.5 (21.0-32.0) mmol/L BUN 29 H (7.0-18.0) mg/dL Creatinine 1.3 H (0.6-1.0) mg/dL Est Cr Clr Drug Dosing 23.96 mL/min Estimated GFR (MDRD) 39.2 ml/min Glucose 141 H (74-106) mg/dL POC Glucose 139 H (60-110) mg/dL Calcium 9.2 (8.5-10.1) mg/dL Med Orders - Current: Current Medications Hydrocodone Bitart/Acetaminophen ([place] 325-7.5 Mg) 1 - 2 tab PO Q4H PRN PRN Reason: Pain Last Admin: 07/16/19 04:01 Dose: 1 tab Al Hydroxide/Mg Hydroxide (Mag-Al Plus) 30 ml PO Q4H PRN PRN Reason: Indigestion Amitriptyline HCl (Elavil) 100 mg PO BEDTIME [facility], [facility] Last Admin: 07/15/19 20:41 Dose: 100 mg Aspirin (Aspirin) 325 mg PO BID [facility], [facility] Last Admin: 07/15/19 20:41 Dose: 325 mg Atorvastatin Calcium (Lipitor) 10 mg PO BEDTIME [facility], [facility] Last Admin: 07/15/19 20:41 Dose: 10 mg Bisacodyl (Dulcolax) 10 mg RECTAL DAILY PRN PRN Reason: Constipation Diphenhydramine HCl (Benadryl) 25 - 50 mg PO Q6H PRN PRN Reason: Itching Docusate Sodium (Colace) 100 mg PO BID PRN PRN Reason: Constipation Escitalopram Oxalate (Lexapro) 10 mg PO DAILY [facility], [facility] Last Admin: 07/15/19 10:41 Dose: 10 mg Famotidine (Pepcid) 40 mg PO DAILY [facility] Last Admin: 07/15/19 10:44 Dose: 40 mg Hydrochlorothiazide (Hydrochlorothiazide) 25 mg PO QAM [facility], [facility] Last Admin: 07/15/19 10:41 Dose: 25 mg Cefazolin Sodium/Dextrose 2 gm (/ Premix) 50 mls @ 100 mls/hr IV ONETIME [facility], [facility] Lactated Ringer's (Ringers, Lactated) 1,000 mls @ 100 mls/hr IV ASDIRECTED [facility]MER[facility], [facility] Last Admin: 07/14/19 23:59 Dose: 100 mls/hr Insulin Aspart (Novolog) 0 unit SUBCUT TIDAC [facility], [facility]; Protocol Last Admin: 07/16/19 08:19 Dose: Not Given Losartan Potassium (Cozaar) 100 mg PO QAM [facility] Last Admin: 07/15/19 10:49 Dose: 100 mg Morphine Sulfate (Morphine) 1 - 3 mg IVPUSH Q3H PRN PRN Reason: Pain Last Admin: 07/14/19 16:58 Dose: 2 mg Ondansetron HCl (Zofran) 4 mg IVPUSH Q6H PRN PRN Reason: Nausea/Vomiting Febuxostat 40 Mg 1 each PO DAILY [facility], [facility] Last Admin: 07/15/19 10:52 Dose: Not Given Polyethylene Glycol (Miralax) 17 gm PO DAILY [facility] Last Admin: 07/15/19 10:52 Dose: Not Given Sodium Chloride (Saline Flush) 10 ml FLUSH ASDIRECTED PRN PRN Reason: Keep Vein Open Sodium Chloride (Saline Flush) 2.5 ml FLUSH ASDIRECTED PRN PRN Reason: Keep Vein Open Verapamil HCl (Calan Sr) 180 mg PO BEDTIME [facility], [facility] Last Admin: 07/15/19 20:42 Dose: 180 mg Discontinued Medications Cefazolin Sodium (Ancef) Confirm Administered Dose 2 gm .ROUTE .STK-MED ONE Stop: 07/14/19 10:15 Fentanyl (Sublimaze) Confirm Administered Dose 100 mcg .ROUTE .STK-MED ONE Stop: 07/14/19 09:24 Sodium Chloride (Normal Saline) Confirm Administered Dose 20 mls @ as directed .ROUTE .STK-MED ONE Stop: 07/14/19 10:15 Cefazolin Sodium/Dextrose 1 gm (/ Premix) 50 mls @ 100 mls/hr IV Q12H [facility]1983 Stop: 07/15/19 10:29 Last Admin: 07/15/19 10:53 Dose: 100 mls/hr Lidocaine (Xylocaine-Mpf 2%) Confirm Administered Dose 5 ml .ROUTE .STK-MED ONE Stop: 07/14/19 09:25 Midazolam HCl (Versed 1 Mg/Ml) Confirm Administered Dose 2 mg .ROUTE .STK-MED ONE Stop: 07/14/19 09:24 Phenylephrine HCl (Phenylephrine In Ns 100 Mcg/Ml) Confirm Administered Dose 1 mg .ROUTE .STK-MED ONE Stop: 07/14/19 11:25 Propofol (Diprivan 20 Ml) Confirm Administered Dose 400 mg .ROUTE .STK-MED ONE Stop: 07/14/19 10:02 Tranexamic Acid (Cyklokapron) 2,000 mg IV ONETIME ONE Stop: 07/14/19 10:01 Last Admin: 07/14/19 13:16 Dose: Not Given Tranexamic Acid (Cyklokapron) Confirm Administered Dose 1,000 mg .ROUTE .STK- MED ONE Stop: 07/14/19 08:22 Tranexamic Acid (Cyklokapron) Confirm Administered Dose 1,000 mg .ROUTE .STK- MED ONE Stop: 07/14/19 08:25 - Exam General: Alert, Oriented, Cooperative Lungs: Clear to Auscultation, Normal Respiratory Effort Cardiovascular: Regular Rate, Regular Rhythm GI/Abdominal Exam: Normal Bowel Sounds, Soft, Non-Tender, No Distention Extremities: No Pedal Edema Skin: Warm Neurological: No New Focal Deficit Psy/Mental Status: Alert, Normal Affect, Normal Mood Consult PN Assessment/Plan Procedures: Procedures ASSAY OF AMYLASE (08/31/16) ASSAY OF CK (CPK) (03/19/19) ASSAY OF LACTIC ACID (03/19/19) ASSAY OF LIPASE (03/19/19) ASSAY OF TROPONIN QUANT (03/19/19) ASSAY THYROID STIM HORMONE (12/19/17) BLOOD CULTURE FOR BACTERIA (03/19/19) CHEST X-RAY 2VW FRONTAL&LATL (07/05/15) COMPLETE CBC AUTOMATED (04/22/14) COMPLETE CBC W/AUTO DIFF WBC (06/22/19) COMPREHEN METABOLIC PANEL (06/22/19) CT ABD & PELVIS W/O CONTRAST (08/31/16) CT HEAD/BRAIN W/O DYE (03/19/19) CT NECK SPINE W/O DYE (03/19/19) CULTURE SCREEN ONLY (02/15/17) DRAIN/INJ JOINT/BURSA W/O US (11/06/18) ECHO EXAM OF ABDOMEN (08/31/16) ELECTROCARDIOGRAM TRACING (06/22/19) EMERGENCY DEPT VISIT (03/19/19) EMERGENCY DEPT VISIT (02/15/17) GLUCOSE BLOOD TEST (03/19/19) GLYCOSYLATED HEMOGLOBIN TEST (06/22/19) HOT OR COLD PACKS THERAPY (08/02/16) HYDRATE IV INFUSION ADD-ON (03/19/19) LIPID PANEL (09/19/18) MANUAL THERAPY 1/> REGIONS (08/02/16) METABOLIC PANEL TOTAL CA (03/19/19) MICROBE SUSCEPTIBLE EMELIA (04/03/19) MRI BRAIN STEM W/O DYE (01/14/18) MRI LUMBAR SPINE W/O DYE (01/14/18) NEEDLE LOCALIZATION BY XRAY (11/06/18) OFFICE/OUTPATIENT VISIT EST (06/22/19) OFFICE/OUTPATIENT VISIT EST (03/17/19) OFFICE/OUTPATIENT VISIT EST (10/12/16) OFFICE/OUTPATIENT VISIT EST (03/04/14) PROTEIN E-PHORESIS SERUM (06/08/16) PROTHROMBIN TIME (06/22/19) PSYCH DIAG EVAL W/MED SRVCS (05/16/17) PT EVAL LOW COMPLEX 20 MIN (03/19/19) PT EVALUATION (07/09/16) ROUTINE VENIPUNCTURE (06/22/19) STREP A ASSAY W/OPTIC (02/15/17) THER/PROPH/DIAG IV INF ADDON (03/19/19) THER/PROPH/DIAG IV INF INIT (03/19/19) THERAPEUTIC ACTIVITIES (03/19/19) THERAPEUTIC EXERCISES (03/19/19) TX/PRO/DX INJ SAME DRUG LENS MOLDER (03/19/19) UR ALBUMIN SEMIQUANTITATIVE (03/02/16) URINALYSIS AUTO W/O SCOPE (06/22/19) URINALYSIS AUTO W/SCOPE (04/28/19) URINE BACTERIA CULTURE (04/03/19) URINE CULTURE/COLONY COUNT (04/28/19) VITAMIN B-12 (12/19/17) X-RAY EXAM CHEST 1 VIEW (03/19/19) X-RAY EXAM CHEST 2 VIEWS (06/22/19) X-RAY EXAM HIP UNI 2-3 VIEWS (09/19/18) X-RAY EXAM L-S SPINE 2/3 VWS (06/08/16) X-RAY EXAM OF PELVIS (03/19/19) Problem List Initiated/Reviewed/Updated: Yes Plan: This 84 year old female admitted with L anterior hip arthroplasty, hospitalist service consulted for medical management. 1. S/P L anterior hip: orders per Orthopedics. monitor for confusion with narcotic use. Does have history of UTIs, mcduffie removed yesterday. 2. HTN: developed hypotension today with BP of 96/46 and 101/52. Will hold morning losartan and HCTZ. 3. DM Type 2: Stable. Hold Metformin during admission. Novolog SSI. Monitor BS TIDAC VTE prophylaxis: Would recommend when deemed appropriate by Orthopedics. Dispo: Plan to be discharged to [place] for rehabilitation on Saturday <Devendra Johns - Last Filed: 07/16/19 13:18> - General Info Admission Dx/Problem (Free Text): I have examined the patient independently of medical pathologist, Dr. Ta, . I have discussed the case with her. I have reviewed and agree with the plan of care as outlined for the patient by her. Please see orders. - Patient Data Vitals - Most Recent: Last Vital Signs Temp 36.5 C 07/16/19 08:07 Pulse 93 07/16/19 08:07 Resp 18 07/16/19 08:07 BP 101/53 L 07/16/19 09:23 Pulse Ox 92 L 07/16/19 08:07 I&O - Last 24 Hours: Intake & Output 07/15/19 07/16/19 07/16/19 22:59 06:59 14:59 Intake Total 860 370 Output Total 740 400 Balance 120 -30 Lab Results Last 24 Hours: Laboratory Results - last 24 hr 07/14/19 07/15/19 07/16/19 Range/Units 12:41 16:48 06:03 Hgb (12.0-16.0) g/dL Hct (36.0-46.0) % Sodium (136-145) mmol/L Potassium (3.5-5.1) mmol/L Chloride (98-107) mmol/L Carbon Dioxide (21.0-32.0) mmol/L BUN (7.0-18.0) mg/dL Creatinine (0.6-1.0) mg/dL Est Cr Clr Drug Dosing mL/min Estimated GFR (MDRD) ml/min Glucose (74-106) mg/dL POC Glucose 111 H 117 H 139 H (60-110) mg/dL Calcium (8.5-10.1) mg/dL 07/16/19 07/16/19 Range/Units 06:15 06:15 Hgb 11.1 L (12.0-16.0) g/dL Hct 34.4 L (36.0-46.0) % Sodium 140 (136-145) mmol/L Potassium 3.9 (3.5-5.1) mmol/L Chloride 103 (98-107) mmol/L Carbon Dioxide 27.5 (21.0-32.0) mmol/L BUN 29 H (7.0-18.0) mg/dL Creatinine 1.3 H (0.6-1.0) mg/dL Est Cr Clr Drug Dosing 23.96 mL/min Estimated GFR (MDRD) 39.2 ml/min Glucose 141 H (74-106) mg/dL POC Glucose (60-110) mg/dL Calcium 9.2 (8.5-10.1) mg/dL Med Orders - Current: Current Medications Hydrocodone Bitart/Acetaminophen ([place] 325-5 Mg) 1 - 2 tab PO Q4H PRN PRN Reason: Pain Al Hydroxide/Mg Hydroxide (Mag-Al Plus) 30 ml PO Q4H PRN PRN Reason: Indigestion Amitriptyline HCl (Elavil) 100 mg PO BEDTIME [facility], [facility] Last Admin: 07/15/19 20:41 Dose: 100 mg Aspirin (Aspirin) 325 mg PO BID [facility], [facility] Last Admin: 07/16/19 09:22 Dose: 325 mg Atorvastatin Calcium (Lipitor) 10 mg PO BEDTIME [facility], [facility]1983 Last Admin: 07/15/19 20:41 Dose: 10 mg Bisacodyl (Dulcolax) 10 mg RECTAL DAILY PRN PRN Reason: Constipation Diphenhydramine HCl (Benadryl) 25 - 50 mg PO Q6H PRN PRN Reason: Itching Docusate Sodium (Colace) 100 mg PO BID PRN PRN Reason: Constipation Escitalopram Oxalate (Lexapro) 10 mg PO DAILY [facility] Last Admin: 07/16/19 09:23 Dose: 10 mg Famotidine (Pepcid) 40 mg PO DAILY [facility] Last Admin: 07/16/19 09:22 Dose: 40 mg Hydrochlorothiazide (Hydrochlorothiazide) 25 mg PO QAM [facility] Last Admin: 07/16/19 09:22 Dose: Not Given Cefazolin Sodium/Dextrose 2 gm (/ Premix) 50 mls @ 100 mls/hr IV ONETIME [facility] Lactated Ringer's (Ringers, Lactated) 1,000 mls @ 100 mls/hr IV ASDIRECTED [facility], [facility] Last Admin: 07/14/19 23:59 Dose: 100 mls/hr Insulin Aspart (Novolog) 0 unit SUBCUT TIDAC [facility], [facility]; Protocol Last Admin: 07/16/19 08:19 Dose: Not Given Losartan Potassium (Cozaar) 100 mg PO QAM [facility] Last Admin: 07/16/19 09:23 Dose: Not Given Morphine Sulfate (Morphine) 1 - 3 mg IVPUSH Q3H PRN PRN Reason: Pain Last Admin: 07/14/19 16:58 Dose: 2 mg Ondansetron HCl (Zofran) 4 mg IVPUSH Q6H PRN PRN Reason: Nausea/Vomiting Febuxostat 40 Mg 1 each PO DAILY [facility] Last Admin: 07/16/19 10:46 Dose: 1 each Polyethylene Glycol (Miralax) 17 gm PO DAILY [facility] Last Admin: 07/16/19 09:28 Dose: Not Given Sodium Chloride (Saline Flush) 10 ml FLUSH ASDIRECTED PRN PRN Reason: Keep Vein Open Sodium Chloride (Saline Flush) 2.5 ml FLUSH ASDIRECTED PRN PRN Reason: Keep Vein Open Verapamil HCl (Calan Sr) 180 mg PO BEDTIME [facility] Last Admin: 07/15/19 20:42 Dose: 180 mg Discontinued Medications Hydrocodone Bitart/Acetaminophen ([place] 325-7.5 Mg) 1 - 2 tab PO Q4H PRN PRN Reason: Pain Last Admin: 07/16/19 09:46 Dose: 1 tab Cefazolin Sodium (Ancef) Confirm Administered Dose 2 gm .ROUTE .STK-MED ONE Stop: 07/14/19 10:15 Fentanyl (Sublimaze) Confirm Administered Dose 100 mcg .ROUTE .STK-MED ONE Stop: 07/14/19 09:24 Sodium Chloride (Normal Saline) Confirm Administered Dose 20 mls @ as directed .ROUTE .STK-MED ONE Stop: 07/14/19 10:15 Cefazolin Sodium/Dextrose 1 gm (/ Premix) 50 mls @ 100 mls/hr IV Q12H CHRISTOPHER Stop: 07/15/19 10:29 Last Admin: 07/15/19 10:53 Dose: 100 mls/hr Lidocaine (Xylocaine-Mpf 2%) Confirm Administered Dose 5 ml .ROUTE .STK-MED ONE Stop: 07/14/19 09:25 Midazolam HCl (Versed 1 Mg/Ml) Confirm Administered Dose 2 mg .ROUTE .STK-MED ONE Stop: 07/14/19 09:24 Phenylephrine HCl (Phenylephrine In Ns 100 Mcg/Ml) Confirm Administered Dose 1 mg .ROUTE .STK-MED ONE Stop: 07/14/19 11:25 Propofol (Diprivan 20 Ml) Confirm Administered Dose 400 mg .ROUTE .[facility]-MED ONE Stop: 07/14/19 10:02 Tranexamic Acid (Cyklokapron) 2,000 mg IV ONETIME ONE Stop: 07/14/19 10:01 Last Admin: 07/14/19 13:16 Dose: Not Given Tranexamic Acid (Cyklokapron) Confirm Administered Dose 1,000 mg .ROUTE .STK- MED ONE Stop: 07/14/19 08:22 Tranexamic Acid (Cyklokapron) Confirm Administered Dose 1,000 mg .ROUTE .[facility]- MED ONE Stop: 07/14/19 08:25 Consult PN Assessment/Plan Procedures: Procedures ASSAY OF AMYLASE (08/31/16) ASSAY OF CK (CPK) (03/19/19) ASSAY OF LACTIC ACID (03/19/19) ASSAY OF LIPASE (03/19/19) ASSAY OF TROPONIN QUANT (03/19/19) ASSAY THYROID STIM HORMONE (12/19/17) BLOOD CULTURE FOR BACTERIA (03/19/19) CHEST X-RAY 2VW FRONTAL&LATL (07/05/15) COMPLETE CBC AUTOMATED (04/22/14) COMPLETE CBC W/AUTO DIFF WBC (06/22/19) COMPREHEN METABOLIC PANEL (06/22/19) CT ABD & PELVIS W/O CONTRAST (08/31/16) CT HEAD/BRAIN W/O DYE (03/19/19) CT NECK SPINE W/O DYE (03/19/19) CULTURE SCREEN ONLY (02/15/17) DRAIN/INJ JOINT/BURSA W/O US (11/06/18) ECHO EXAM OF ABDOMEN (08/31/16) ELECTROCARDIOGRAM TRACING (06/22/19) EMERGENCY DEPT VISIT (03/19/19) EMERGENCY DEPT VISIT (02/15/17) GLUCOSE BLOOD TEST (03/19/19) GLYCOSYLATED HEMOGLOBIN TEST (06/22/19) HOT OR COLD PACKS THERAPY (08/02/16) HYDRATE IV INFUSION ADD-ON (03/19/19) LIPID PANEL (09/19/18) MANUAL THERAPY 1/> REGIONS (08/02/16) METABOLIC PANEL TOTAL CA (03/19/19) MICROBE SUSCEPTIBLE EMELIA (04/03/19) MRI BRAIN STEM W/O DYE (01/14/18) MRI LUMBAR SPINE W/O DYE (01/14/18) NEEDLE LOCALIZATION BY XRAY (11/06/18) OFFICE/OUTPATIENT VISIT EST (06/22/19) OFFICE/OUTPATIENT VISIT EST (03/17/19) OFFICE/OUTPATIENT VISIT EST (10/12/16) OFFICE/OUTPATIENT VISIT EST (03/04/14) PROTEIN E-PHORESIS SERUM (06/08/16) PROTHROMBIN TIME (06/22/19) PSYCH DIAG EVAL W/MED SRVCS (05/16/17) PT EVAL LOW COMPLEX 20 MIN (03/19/19) PT EVALUATION (07/09/16) ROUTINE VENIPUNCTURE (06/22/19) STREP A ASSAY W/OPTIC (02/15/17) THER/PROPH/DIAG IV INF ADDON (03/19/19) THER/PROPH/DIAG IV INF INIT (03/19/19) THERAPEUTIC ACTIVITIES (03/19/19) THERAPEUTIC EXERCISES (03/19/19) TX/PRO/DX INJ SAME DRUG LENS MOLDER (03/19/19) UR ALBUMIN SEMIQUANTITATIVE (03/02/16) URINALYSIS AUTO W/O SCOPE (06/22/19) URINALYSIS AUTO W/SCOPE (04/28/19) URINE BACTERIA CULTURE (04/03/19) URINE CULTURE/COLONY COUNT (04/28/19) VITAMIN B-12 (12/19/17) X-RAY EXAM CHEST 1 VIEW (03/19/19) X-RAY EXAM CHEST 2 VIEWS (06/22/19) X-RAY EXAM HIP UNI 2-3 VIEWS (09/19/18) X-RAY EXAM L-S SPINE 2/3 VWS (06/08/16) X-RAY EXAM OF PELVIS (03/19/19)
[2019-07-16] MEDS: Aspirin 325 MG Tab PO SCH ×2 (09:22→21:05)
[2019-07-16] MEDS: Hydrochlorothiazide 25 MG Tab PO SCH (09:22)
[2019-07-16] MEDS: Famotidine 20 MG Tab PO SCH (09:22)
[2019-07-16] MEDS: Polyethylene Glycol 3350 Powder 17 GM Packet PO SCH ×2 (09:23→09:28)
[2019-07-16] MEDS: Escitalopram 10 MG Tab PO SCH (09:23)
[2019-07-16] MEDS: Losartan 50 MG Tab PO SCH (09:23)
[2019-07-16] MEDS ORDERED: Acetaminophen/HYDROcodone 325-5 MG Tab PO PRN (12:01)
[2019-07-16] MEDS ORDERED: Melatonin 3 MG Tab PO SCH (21:00)
[2019-07-16] MEDS: Amitriptyline 25 MG Tab PO SCH (21:04)
[2019-07-16] MEDS: atorvaSTATin 10 MG Tab PO SCH (21:05)
[2019-07-16] MEDS: Verapamil 180 MG Tab.ER PO SCH (21:10)
--- NOTE | 2019-07-17 07:24 | PCM.DCSUM1 ---
Discharge Summary - Hospital Course Brief History: patient was admitted for elective left total hip arthroplasty Diagnosis: Stroke: No - Discharge Data Discharge Date: 07/17/19 Discharge Disposition: DC/Tfer to SNF 03 Condition: Good - Patient Summary/Data Operative Procedure(s) Performed: left anterior total hip arthroplasty Consults: Consultations 07/14/19 12:08 Consult to Physician [CONS] Routine PT Evaluation and Treatment [CONS] Routine Hospital Course: patient underwent uneventful total hip arthroplasty. post-operatively she was admitted to the floor where her pain was controlled, her diet was advanced, and she participated in physical therapy with weight bearing as tolerated. She did well and her hemoglobin remained stable. She did require low dose oxygen the first 2 nights for low oxygen saturation, but not the last night. She was mildly confused the first 2 days, however a UA was negative for infection. She was discharged on POD#3 to [place]. f/u 2 weeks. leave dressing on. - Patient Instructions Diet: Usual Diet as Tolerated Activity: Apply Ice, Full Weight Bearing Activity, Other: with walker Driving: Do Not Drive Showering/Bathing: May Shower Wound/Incision Care: Do NOT Change Dressing Notify Provider of: Fever, Swelling and Redness, Drainage - Discharge Plan *PRESCRIPTION DRUG MONITORING PROGRAM REVIEWED*: No *COPY OF PRESCRIPTION DRUG MONITORING REPORT IN PATIENT MOHAN: No Home Medications: Home Meds Aspirin 81 mg PO DAILY 08/31/16 [History] Losartan [Cozaar] 100 mg PO QAM 08/31/16 [History] Verapamil [Calan SR] 180 mg PO BEDTIME 08/31/16 [History] metFORMIN [Glucophage XR] 500 mg PO QAM 08/31/16 [History] Cholecalciferol (Vitamin D3) [Vitamin D3] 5,000 unit PO DAILY 03/19/19 [History] Omeprazole 20 mg PO DAILY PRN 03/19/19 [History] atorvaSTATin [Lipitor] 10 mg PO BEDTIME 03/19/19 [History] Amitriptyline HCl 100 mg PO BEDTIME 07/09/19 [History] Escitalopram Oxalate 10 mg PO DAILY 07/09/19 [History] Febuxostat [Uloric] 40 mg PO DAILY 07/09/19 [History] Vit A/Vit C/Vit E/Zinc/Copper [Preservision Areds Softgel] 1 cap PO BID [History] Vitamin B Complex 1 cap PO DAILY 07/09/19 [History] hydroCHLOROthiazide [Hydrochlorothiazide] 25 mg PO QAM 07/09/19 [History] metFORMIN HCl [Metformin HCl ER] 1,000 mg PO QPM 07/09/19 [History] Patient Handouts: Total Hip Replacement, Care After, [id number] Referrals: Ana Maria Paulson PA [Physician Wax Molder] - 07/27/19 9:30 am - Discharge Summary/Plan Comment DC Time >30 min.: No - Patient Data Vitals - Most Recent: Last Vital Signs Temp 36.0 C 07/17/19 04:00 Pulse 84 07/17/19 04:00 Resp 16 07/17/19 04:00 BP 104/57 L 07/17/19 04:00 Pulse Ox 94 L 07/17/19 04:00 Weight - Most Recent: 58.06 kg I&O - Last 24 hours: Intake & Output 07/16/19 07/17/19 07/17/19 22:59 06:59 14:59 Intake Total 600 600 Output Total 250 1250 Balance 350 -650 Lab Results - Last 24 hrs: Laboratory Results - last 24 hr 07/14/19 07/16/19 07/16/19 Range/Units 12:41 12:01 13:25 POC Glucose 111 H 121 H (60-110) mg/dL Urine Color YELLOW Urine Appearance CLEAR Urine pH 5.5 (5.0-8.0) Ur Specific Jerome 1.020 (1.001-1.035) Urine Protein NEGATIVE (NEGATIVE) mg/dL Urine Glucose (UA) NEGATIVE (NEGATIVE) mg/dL Urine Ketones NEGATIVE (NEGATIVE) mg/dL Urine Occult Blood NEGATIVE (NEGATIVE) Urine Nitrite NEGATIVE (NEGATIVE) Urine Bilirubin NEGATIVE (NEGATIVE) Urine Urobilinogen 0.2 (<2.0) EU/dL Ur Leukocyte Esterase NEGATIVE (NEGATIVE) 07/16/19 07/16/19 07/17/19 Range/Units 17:58 21:46 06:42 POC Glucose 127 H 137 H 127 H (60-110) mg/dL Urine Color Urine Appearance Urine pH (5.0-8.0) Ur Specific Jerome (1.001-1.035) Urine Protein (NEGATIVE) mg/dL Urine Glucose (UA) (NEGATIVE) mg/dL Urine Ketones (NEGATIVE) mg/dL Urine Occult Blood (NEGATIVE) Urine Nitrite (NEGATIVE) Urine Bilirubin (NEGATIVE) Urine Urobilinogen (<2.0) EU/dL Ur Leukocyte Esterase (NEGATIVE) Med Orders - Current: Current Medications Hydrocodone Bitart/Acetaminophen ([place] 325-5 Mg) 1 - 2 tab PO Q4H PRN PRN Reason: Pain Last Admin: 07/16/19 18:04 Dose: 1 tab Al Hydroxide/Mg Hydroxide (Mag-Al Plus) 30 ml PO Q4H PRN PRN Reason: Indigestion Amitriptyline HCl (Elavil) 100 mg PO BEDTIME [facility] Last Admin: 07/16/19 21:04 Dose: 100 mg Aspirin (Aspirin) 325 mg PO BID [facility] Last Admin: 07/16/19 21:05 Dose: 325 mg Atorvastatin Calcium (Lipitor) 10 mg PO BEDTIME [facility] Last Admin: 07/16/19 21:05 Dose: 10 mg Bisacodyl (Dulcolax) 10 mg RECTAL DAILY PRN PRN Reason: Constipation Diphenhydramine HCl (Benadryl) 25 - 50 mg PO Q6H PRN PRN Reason: Itching Docusate Sodium (Colace) 100 mg PO BID PRN PRN Reason: Constipation Escitalopram Oxalate (Lexapro) 10 mg PO DAILY [facility] Last Admin: 07/16/19 09:23 Dose: 10 mg Famotidine (Pepcid) 40 mg PO DAILY [facility] Last Admin: 07/16/19 09:22 Dose: 40 mg Hydrochlorothiazide (Hydrochlorothiazide) 25 mg PO QAM [facility] Last Admin: 07/16/19 09:22 Dose: Not Given Cefazolin Sodium/Dextrose 2 gm (/ Premix) 50 mls @ 100 mls/hr IV ONETIME [facility] Lactated Ringer's (Ringers, Lactated) 1,000 mls @ 100 mls/hr IV ASDIRECTED [facility] Last Admin: 07/14/19 23:59 Dose: 100 mls/hr Insulin Aspart (Novolog) 0 unit SUBCUT TIDAC [facility]; Protocol Last Admin: 07/16/19 18:06 Dose: Not Given Losartan Potassium (Cozaar) 100 mg PO QAM [facility] Last Admin: 07/16/19 09:23 Dose: Not Given Melatonin (Melatonin) 6 mg PO BEDTIME [facility] Last Admin: 07/16/19 21:05 Dose: 6 mg Morphine Sulfate (Morphine) 1 - 3 mg IVPUSH Q3H PRN PRN Reason: Pain Last Admin: 07/14/19 16:58 Dose: 2 mg Ondansetron HCl (Zofran) 4 mg IVPUSH Q6H PRN PRN Reason: Nausea/Vomiting Febuxostat 40 Mg 1 each PO DAILY [facility] Last Admin: 07/16/19 10:46 Dose: 1 each Polyethylene Glycol (Miralax) 17 gm PO DAILY [facility] Last Admin: 07/16/19 09:28 Dose: Not Given Sodium Chloride (Saline Flush) 10 ml FLUSH ASDIRECTED PRN PRN Reason: Keep Vein Open Sodium Chloride (Saline Flush) 2.5 ml FLUSH ASDIRECTED PRN PRN Reason: Keep Vein Open Verapamil HCl (Calan Sr) 180 mg PO BEDTIME [facility] Last Admin: 07/16/19 21:10 Dose: 180 mg Discontinued Medications Hydrocodone Bitart/Acetaminophen ([place] 325-7.5 Mg) 1 - 2 tab PO Q4H PRN PRN Reason: Pain Last Admin: 07/16/19 09:46 Dose: 1 tab Cefazolin Sodium (Ancef) Confirm Administered Dose 2 gm .ROUTE .STK-MED ONE Stop: 07/14/19 10:15 Fentanyl (Sublimaze) Confirm Administered Dose 100 mcg .ROUTE .STK-MED ONE Stop: 07/14/19 09:24 Sodium Chloride (Normal Saline) Confirm Administered Dose 20 mls @ as directed .ROUTE .STK-MED ONE Stop: 07/14/19 10:15 Cefazolin Sodium/Dextrose 1 gm (/ Premix) 50 mls @ 100 mls/hr IV Q12H [facility] Stop: 07/15/19 10:29 Last Admin: 07/15/19 10:53 Dose: 100 mls/hr Lidocaine (Xylocaine-Mpf 2%) Confirm Administered Dose 5 ml .ROUTE .STK-MED ONE Stop: 07/14/19 09:25 Midazolam HCl (Versed 1 Mg/Ml) Confirm Administered Dose 2 mg .ROUTE .STK-MED ONE Stop: 07/14/19 09:24 Phenylephrine HCl (Phenylephrine In Ns 100 Mcg/Ml) Confirm Administered Dose 1 mg .ROUTE .STK-MED ONE Stop: 07/14/19 11:25 Propofol (Diprivan 20 Ml) Confirm Administered Dose 400 mg .ROUTE .STK-MED ONE Stop: 07/14/19 10:02 Tranexamic Acid (Cyklokapron) 2,000 mg IV ONETIME ONE Stop: 07/14/19 10:01 Last Admin: 07/14/19 13:16 Dose: Not Given Tranexamic Acid (Cyklokapron) Confirm Administered Dose 1,000 mg .ROUTE .STK- MED ONE Stop: 07/14/19 08:22 Tranexamic Acid (Cyklokapron) Confirm Administered Dose 1,000 mg .ROUTE .STK- MED ONE Stop: 07/14/19 08:25
--- NOTE | 2019-07-17 07:25 | PCM.SN ---
- Free Text/Narrative Note: Subjective: pain controlled with meds. Patient has gotten up to chair and ambulated in hallway. no cp/sob. No oxygen overnight. UA yesterday for mild confusion which was negative. O: afebrile vital signs stable left hip - minimal pain to ROM, leg lengths equal. dressing is clean/dry/ intact with no drainage or surrounding erythema. minimal swelling in thigh and none distally. A/P: POD #3 left CACHORRO - full weight bearing with walker. PT today - ecotrin for DVT prophylaxis - d/c to SNF [facility] today. Continue norco - f/u 2 weeks, leave dressing on.
[2019-07-17 07:41] LABS: CARBON DIOXIDE,CO2 25.8 mmol/L (21.0-32.0); POTASSIUM,K 3.5 mmol/L (3.5-5.1)
[2019-07-17] MEDS: Insulin Aspart 100 Units/ML 3 ML Pen SUBCUT SCH ×2 (07:48→12:46)
[2019-07-17] MEDS ORDERED: Aspirin 325 MG Tab.EC PO SCH (09:00)
[2019-07-17] MEDS: Famotidine 20 MG Tab PO SCH (09:03)
[2019-07-17] MEDS: Losartan 50 MG Tab PO SCH (09:03)
[2019-07-17] MEDS: Hydrochlorothiazide 25 MG Tab PO SCH (09:03)
[2019-07-17 09:05] VITALS: BP 138/68
[2019-07-17] MEDS: Polyethylene Glycol 3350 Powder 17 GM Packet PO SCH (09:05)
[2019-07-17] MEDS: Escitalopram 10 MG Tab PO SCH (09:13)
--- NOTE | 2019-07-17 09:38 | PCM.CONSN ---
<Debora Juarez M - Last Filed: 07/17/19 09:35> - General Info Date of Service: 07/17/19 Admission Dx/Problem (Free Text): L hip replacement Subjective Update: Sitting up in chair this morning, reports L hip pain. Denies lightheadedness, dizziness, chest pain or SOB. Is ready to go to [place] today. No other concerns. Functional Status: Reports: Pain Controlled, Tolerating Diet, Ambulating, Urinating - Review of Systems General: Reports: No Symptoms. Denies: Weakness, Fatigue HEENT: Reports: No Symptoms. Denies: Headaches, Sore Throat Pulmonary: Reports: No Symptoms. Denies: Shortness of Breath Cardiovascular: Reports: No Symptoms. Denies: Chest Pain Gastrointestinal: Reports: No Symptoms. Denies: Abdominal Pain, Nausea, Vomiting Genitourinary: Reports: No Symptoms Musculoskeletal: Reports: Joint Pain (L hip) Skin: Reports: No Symptoms Neurological: Reports: No Symptoms Psychiatric: Reports: No Symptoms - Patient Data Vitals - Most Recent: Last Vital Signs Temp 97.6 F 07/17/19 08:00 Pulse 89 07/17/19 08:00 Resp 22 H 07/17/19 08:00 BP 138/68 07/17/19 09:03 Pulse Ox 91 L 07/17/19 08:00 Weight - Most Recent: 58.06 kg I&O - Last 24 Hours: Intake & Output 07/16/19 07/17/19 07/17/19 22:59 06:59 14:59 Intake Total 600 600 Output Total 250 1250 Balance 350 -650 Lab Results Last 24 Hours: Laboratory Results - last 24 hr 07/16/19 07/16/19 07/16/19 Range/Units 12:01 13:25 17:58 Sodium (136-145) mmol/L Potassium (3.5-5.1) mmol/L Chloride (98-107) mmol/L Carbon Dioxide (21.0-32.0) mmol/L BUN (7.0-18.0) mg/dL Creatinine (0.6-1.0) mg/dL Est Cr Clr Drug Dosing mL/min Estimated GFR (MDRD) ml/min Glucose (74-106) mg/dL POC Glucose 121 H 127 H (60-110) mg/dL Calcium (8.5-10.1) mg/dL Urine Color YELLOW Urine Appearance CLEAR Urine pH 5.5 (5.0-8.0) Ur Specific [place] 1.020 (1.001-1.035) Urine Protein NEGATIVE (NEGATIVE) mg/dL Urine Glucose (UA) NEGATIVE (NEGATIVE) mg/dL Urine Ketones NEGATIVE (NEGATIVE) mg/dL Urine Occult Blood NEGATIVE (NEGATIVE) Urine Nitrite NEGATIVE (NEGATIVE) Urine Bilirubin NEGATIVE (NEGATIVE) Urine Urobilinogen 0.2 (<2.0) EU/dL Ur Leukocyte Esterase NEGATIVE (NEGATIVE) 07/16/19 07/17/19 07/17/19 Range/Units 21:46 06:10 06:42 Sodium 140 (136-145) mmol/L Potassium 3.5 (3.5-5.1) mmol/L Chloride 104 (98-107) mmol/L Carbon Dioxide 25.8 (21.0-32.0) mmol/L BUN 32 H (7.0-18.0) mg/dL Creatinine 1.3 H (0.6-1.0) mg/dL Est Cr Clr Drug Dosing 23.96 mL/min Estimated GFR (MDRD) 39.2 ml/min Glucose 136 H (74-106) mg/dL POC Glucose 137 H 127 H (60-110) mg/dL Calcium 9.4 (8.5-10.1) mg/dL Urine Color Urine Appearance Urine pH (5.0-8.0) Ur Specific [place] (1.001-1.035) Urine Protein (NEGATIVE) mg/dL Urine Glucose (UA) (NEGATIVE) mg/dL Urine Ketones (NEGATIVE) mg/dL Urine Occult Blood (NEGATIVE) Urine Nitrite (NEGATIVE) Urine Bilirubin (NEGATIVE) Urine Urobilinogen (<2.0) EU/dL Ur Leukocyte Esterase (NEGATIVE) Med Orders - Current: Current Medications Hydrocodone Bitart/Acetaminophen (Russell 325-5 Mg) 1 - 2 tab PO Q4H PRN PRN Reason: Pain Last Admin: 07/16/19 18:04 Dose: 1 tab Al Hydroxide/Mg Hydroxide (Mag-Al Plus) 30 ml PO Q4H PRN PRN Reason: Indigestion Amitriptyline HCl (Elavil) 100 mg PO BEDTIME [facility]STOPHER Last Admin: 07/16/19 21:04 Dose: 100 mg Aspirin (Ecotrin) 325 mg PO BID [facility]STOPHER Last Admin: 07/17/19 09:06 Dose: 325 mg Atorvastatin Calcium (Lipitor) 10 mg PO BEDTIME [facility] Last Admin: 07/16/19 21:05 Dose: 10 mg Bisacodyl (Dulcolax) 10 mg RECTAL DAILY PRN PRN Reason: Constipation Diphenhydramine HCl (Benadryl) 25 - 50 mg PO Q6H PRN PRN Reason: Itching Docusate Sodium (Colace) 100 mg PO BID PRN PRN Reason: Constipation Escitalopram Oxalate (Lexapro) 10 mg PO DAILY [facility] Last Admin: 07/17/19 09:13 Dose: 10 mg Famotidine (Pepcid) 40 mg PO DAILY [facility] Last Admin: 07/17/19 09:03 Dose: 40 mg Hydrochlorothiazide (Hydrochlorothiazide) 25 mg PO QAM [facility] Last Admin: 07/17/19 09:03 Dose: 25 mg Cefazolin Sodium/Dextrose 2 gm (/ Premix) 50 mls @ 100 mls/hr IV ONETIME [facility] Lactated Ringer's (Ringers, Lactated) 1,000 mls @ 100 mls/hr IV ASDIRECTED [facility] Last Admin: 07/14/19 23:59 Dose: 100 mls/hr Insulin Aspart (Novolog) 0 unit SUBCUT TIDAC [facility]; Protocol Last Admin: 07/17/19 07:48 Dose: Not Given Losartan Potassium (Cozaar) 100 mg PO QAM [facility] Last Admin: 07/17/19 09:03 Dose: 100 mg Melatonin (Melatonin) 6 mg PO BEDTIME [facility] Last Admin: 07/16/19 21:05 Dose: 6 mg Morphine Sulfate (Morphine) 1 - 3 mg IVPUSH Q3H PRN PRN Reason: Pain Last Admin: 07/14/19 16:58 Dose: 2 mg Ondansetron HCl (Zofran) 4 mg IVPUSH Q6H PRN PRN Reason: Nausea/Vomiting Febuxostat 40 Mg 1 each PO DAILY [facility] Last Admin: 07/17/19 09:07 Dose: 1 each Polyethylene Glycol (Miralax) 17 gm PO DAILY [facility] Last Admin: 07/17/19 09:05 Dose: Not Given Sodium Chloride (Saline Flush) 10 ml FLUSH ASDIRECTED PRN PRN Reason: Keep Vein Open Sodium Chloride (Saline Flush) 2.5 ml FLUSH ASDIRECTED PRN PRN Reason: Keep Vein Open Verapamil HCl (Calan Sr) 180 mg PO BEDTIME [facility] Last Admin: 07/16/19 21:10 Dose: 180 mg Discontinued Medications Hydrocodone Bitart/Acetaminophen (Russell 325-7.5 Mg) 1 - 2 tab PO Q4H PRN PRN Reason: Pain Last Admin: 07/16/19 09:46 Dose: 1 tab Aspirin (Aspirin) 325 mg PO BID [facility] Last Admin: 07/16/19 21:05 Dose: 325 mg Cefazolin Sodium (Ancef) Confirm Administered Dose 2 gm .ROUTE .STK-MED ONE Stop: 07/14/19 10:15 Fentanyl (Sublimaze) Confirm Administered Dose 100 mcg .ROUTE .STK-MED ONE Stop: 07/14/19 09:24 Sodium Chloride (Normal Saline) Confirm Administered Dose 20 mls @ as directed .ROUTE .STK-MED ONE Stop: 07/14/19 10:15 Cefazolin Sodium/Dextrose 1 gm (/ Premix) 50 mls @ 100 mls/hr IV Q12H [facility] Stop: 07/15/19 10:29 Last Admin: 07/15/19 10:53 Dose: 100 mls/hr Lidocaine (Xylocaine-Mpf 2%) Confirm Administered Dose 5 ml .ROUTE .STK-MED ONE Stop: 07/14/19 09:25 Midazolam HCl (Versed 1 Mg/Ml) Confirm Administered Dose 2 mg .ROUTE .STK-MED ONE Stop: 07/14/19 09:24 Phenylephrine HCl (Phenylephrine In Ns 100 Mcg/Ml) Confirm Administered Dose 1 mg .ROUTE .STK-MED ONE Stop: 07/14/19 11:25 Propofol (Diprivan 20 Ml) Confirm Administered Dose 400 mg .ROUTE .STK-MED ONE Stop: 07/14/19 10:02 Tranexamic Acid (Cyklokapron) 2,000 mg IV ONETIME ONE Stop: 07/14/19 10:01 Last Admin: 07/14/19 13:16 Dose: Not Given Tranexamic Acid (Cyklokapron) Confirm Administered Dose 1,000 mg .ROUTE .STK- MED ONE Stop: 07/14/19 08:22 Tranexamic Acid (Cyklokapron) Confirm Administered Dose 1,000 mg .ROUTE .STK- MED ONE Stop: 07/14/19 08:25 - Exam General: Alert, Oriented, Cooperative, No Acute Distress Neck: Supple Lungs: Clear to Auscultation, Normal Respiratory Effort Cardiovascular: Regular Rate, Regular Rhythm GI/Abdominal Exam: Normal Bowel Sounds, Soft, Non-Tender Extremities: Normal Inspection, Normal Range of Motion, Non-Tender, No Pedal Edema Wound/Incisions: Healing Well, Dressing Dry and Intact Neurological: No New Focal Deficit Psy/Mental Status: Alert, Normal Affect, Normal Mood Consult PN Assessment/Plan Procedures: Procedures ASSAY OF AMYLASE (08/31/16) ASSAY OF CK (CPK) (03/19/19) ASSAY OF LACTIC ACID (03/19/19) ASSAY OF LIPASE (03/19/19) ASSAY OF TROPONIN QUANT (03/19/19) ASSAY THYROID STIM HORMONE (12/19/17) BLOOD CULTURE FOR BACTERIA (03/19/19) CHEST X-RAY 2VW FRONTAL&LATL (07/05/15) COMPLETE CBC AUTOMATED (04/22/14) COMPLETE CBC W/AUTO DIFF WBC (06/22/19) COMPREHEN METABOLIC PANEL (06/22/19) CT ABD & PELVIS W/O CONTRAST (08/31/16) CT HEAD/BRAIN W/O DYE (03/19/19) CT NECK SPINE W/O DYE (03/19/19) CULTURE SCREEN ONLY (02/15/17) DRAIN/INJ JOINT/BURSA W/O US (11/06/18) ECHO EXAM OF ABDOMEN (08/31/16) ELECTROCARDIOGRAM TRACING (06/22/19) EMERGENCY DEPT VISIT (03/19/19) EMERGENCY DEPT VISIT (02/15/17) GLUCOSE BLOOD TEST (03/19/19) GLYCOSYLATED HEMOGLOBIN TEST (06/22/19) HOT OR COLD PACKS THERAPY (08/02/16) HYDRATE IV INFUSION ADD-ON (03/19/19) LIPID PANEL (09/19/18) MANUAL THERAPY 1/> REGIONS (08/02/16) METABOLIC PANEL TOTAL CA (03/19/19) MICROBE SUSCEPTIBLE EMELIA (04/03/19) MRI BRAIN STEM W/O DYE (01/14/18) MRI LUMBAR SPINE W/O DYE (01/14/18) NEEDLE LOCALIZATION BY XRAY (11/06/18) OFFICE/OUTPATIENT VISIT EST (06/22/19) OFFICE/OUTPATIENT VISIT EST (03/17/19) OFFICE/OUTPATIENT VISIT EST (10/12/16) OFFICE/OUTPATIENT VISIT EST (03/04/14) PROTEIN E-PHORESIS SERUM (06/08/16) PROTHROMBIN TIME (06/22/19) PSYCH DIAG EVAL W/MED SRVCS (05/16/17) PT EVAL LOW COMPLEX 20 MIN (03/19/19) PT EVALUATION (07/09/16) ROUTINE VENIPUNCTURE (06/22/19) STREP A ASSAY W/OPTIC (02/15/17) THER/PROPH/DIAG IV INF ADDON (03/19/19) THER/PROPH/DIAG IV INF INIT (03/19/19) THERAPEUTIC ACTIVITIES (03/19/19) THERAPEUTIC EXERCISES (03/19/19) TX/PRO/DX INJ SAME DRUG PROCESS INSPECTOR (03/19/19) UR ALBUMIN SEMIQUANTITATIVE (03/02/16) URINALYSIS AUTO W/O SCOPE (06/22/19) URINALYSIS AUTO W/SCOPE (04/28/19) URINE BACTERIA CULTURE (04/03/19) URINE CULTURE/COLONY COUNT (04/28/19) VITAMIN B-12 (12/19/17) X-RAY EXAM CHEST 1 VIEW (03/19/19) X-RAY EXAM CHEST 2 VIEWS (06/22/19) X-RAY EXAM HIP UNI 2-3 VIEWS (09/19/18) X-RAY EXAM L-S SPINE 2/3 VWS (06/08/16) X-RAY EXAM OF PELVIS (03/19/19) (1) S/P hip replacement SNOMED Code(s): 751784236, 904133847, 957319384, 770039663 Code(s): Z96.649 - PRESENCE OF UNSPECIFIED ARTIFICIAL HIP JOINT Qualifiers: Laterality: left Qualified Code(s): Z96.642 - Presence of left artificial hip joint (2) Anxiety SNOMED Code(s): 47114947 Code(s): F41.9 - ANXIETY DISORDER, UNSPECIFIED (3) PVD (peripheral vascular disease) SNOMED Code(s): 887731446 Code(s): I73.9 - PERIPHERAL VASCULAR DISEASE, UNSPECIFIED (4) DM type 2 (diabetes mellitus, type 2) SNOMED Code(s): 29636272 Code(s): E11.9 - TYPE 2 DIABETES MELLITUS WITHOUT COMPLICATIONS Qualifiers: Diabetes mellitus lobsterman insulin use: without prison use (5) HTN (hypertension) SNOMED Code(s): 03629725 Code(s): I10 - ESSENTIAL (PRIMARY) HYPERTENSION Qualifiers: Hypertension type: essential hypertension Qualified Code(s): I10 - Essential (primary) hypertension Problem List Initiated/Reviewed/Updated: Yes Plan: This 84 year old female admitted with L anterior hip arthroplasty, hospitalist service consulted for medical management. 1. S/P L anterior hip: orders per Orthopedics. 2. HTN: Elevated this morning, may be pain response. returned to normal. continue home medications of Verapamil, Losartan and HCTZ. Monitor BMP. 3. DM Type 2: Stable. Hole Metformin during admission. Novolog SSI. Monitor BS TIDAC VTE prophylaxis: Would recommend when deemed appropriate by Orthopedics. <Devendra Johns M - Last Filed: 07/17/19 16:40> - General Info Admission Dx/Problem (Free Text): I have seen and examined the patient independently of Debora Juarez CNP. I have reviewed and agree with the plan of care as outlined for this patient by her. I have discussed the case with her. Please see orders. - Patient Data Vitals - Most Recent: Last Vital Signs Temp 36.4 C 07/17/19 08:00 Pulse 89 07/17/19 08:00 Resp 22 H 07/17/19 08:00 BP 138/68 07/17/19 09:03 Pulse Ox 91 L 07/17/19 08:00 I&O - Last 24 Hours: Intake & Output 07/17/19 07/17/19 07/17/19 06:59 14:59 22:59 Intake Total 600 420 Output Total 1250 250 Balance -650 170 Lab Results Last 24 Hours: Laboratory Results - last 24 hr 07/16/19 07/16/19 07/16/19 Range/Units 12:01 17:58 21:46 Sodium (136-145) mmol/L Potassium (3.5-5.1) mmol/L Chloride (98-107) mmol/L Carbon Dioxide (21.0-32.0) mmol/L BUN (7.0-18.0) mg/dL Creatinine (0.6-1.0) mg/dL Est Cr Clr Drug Dosing mL/min Estimated GFR (MDRD) ml/min Glucose (74-106) mg/dL POC Glucose 121 H 127 H 137 H (60-110) mg/dL Calcium (8.5-10.1) mg/dL 07/17/19 07/17/19 Range/Units 06:10 06:42 Sodium 140 (136-145) mmol/L Potassium 3.5 (3.5-5.1) mmol/L Chloride 104 (98-107) mmol/L Carbon Dioxide 25.8 (21.0-32.0) mmol/L BUN 32 H (7.0-18.0) mg/dL Creatinine 1.3 H (0.6-1.0) mg/dL Est Cr Clr Drug Dosing 23.96 mL/min Estimated GFR (MDRD) 39.2 ml/min Glucose 136 H (74-106) mg/dL POC Glucose 127 H (60-110) mg/dL Calcium 9.4 (8.5-10.1) mg/dL Med Orders - Current: Current Medications Discontinued Medications Hydrocodone Bitart/Acetaminophen (Russell 325-7.5 Mg) 1 - 2 tab PO Q4H PRN PRN Reason: Pain Last Admin: 07/16/19 09:46 Dose: 1 tab Hydrocodone Bitart/Acetaminophen (Russell 325-5 Mg) 1 - 2 tab PO Q4H PRN PRN Reason: Pain Last Admin: 07/16/19 18:04 Dose: 1 tab Al Hydroxide/Mg Hydroxide (Mag-Al Plus) 30 ml PO Q4H PRN PRN Reason: Indigestion Amitriptyline HCl (Elavil) 100 mg PO BEDTIME [facility] Last Admin: 07/16/19 21:04 Dose: 100 mg Aspirin (Aspirin) 325 mg PO BID [facility] Last Admin: 07/16/19 21:05 Dose: 325 mg Aspirin (Ecotrin) 325 mg PO BID [facility] Last Admin: 07/17/19 09:06 Dose: 325 mg Atorvastatin Calcium (Lipitor) 10 mg PO BEDTIME [facility] Last Admin: 07/16/19 21:05 Dose: 10 mg Bisacodyl (Dulcolax) 10 mg RECTAL DAILY PRN PRN Reason: Constipation Cefazolin Sodium (Ancef) Confirm Administered Dose 2 gm .ROUTE .STK-MED ONE Stop: 07/14/19 10:15 Diphenhydramine HCl (Benadryl) 25 - 50 mg PO Q6H PRN PRN Reason: Itching Docusate Sodium (Colace) 100 mg PO BID PRN PRN Reason: Constipation Escitalopram Oxalate (Lexapro) 10 mg PO DAILY [facility] Last Admin: 07/17/19 09:13 Dose: 10 mg Famotidine (Pepcid) 40 mg PO DAILY [facility] Last Admin: 07/17/19 09:03 Dose: 40 mg Fentanyl (Sublimaze) Confirm Administered Dose 100 mcg .ROUTE .STK-MED ONE Stop: 07/14/19 09:24 Hydrochlorothiazide (Hydrochlorothiazide) 25 mg PO QAM [facility] Last Admin: 07/17/19 09:03 Dose: 25 mg Cefazolin Sodium/Dextrose 2 gm (/ Premix) 50 mls @ 100 mls/hr IV ONETIME [facility] Lactated Ringer's (Ringers, Lactated) 1,000 mls @ 100 mls/hr IV ASDIRECTED [facility] Last Admin: 07/14/19 23:59 Dose: 100 mls/hr Sodium Chloride (Normal Saline) Confirm Administered Dose 20 mls @ as directed .ROUTE .STK-MED ONE Stop: 07/14/19 10:15 Cefazolin Sodium/Dextrose 1 gm (/ Premix) 50 mls @ 100 mls/hr IV Q12H [facility] Stop: 07/15/19 10:29 Last Admin: 07/15/19 10:53 Dose: 100 mls/hr Insulin Aspart (Novolog) 0 unit SUBCUT TIDAC [facility]; Protocol Last Admin: 07/17/19 12:46 Dose: Not Given Lidocaine (Xylocaine-Mpf 2%) Confirm Administered Dose 5 ml .ROUTE .STK-MED ONE Stop: 07/14/19 09:25 Losartan Potassium (Cozaar) 100 mg PO QAM [facility] Last Admin: 07/17/19 09:03 Dose: 100 mg Melatonin (Melatonin) 6 mg PO BEDTIME [facility] Last Admin: 07/16/19 21:05 Dose: 6 mg Midazolam HCl (Versed 1 Mg/Ml) Confirm Administered Dose 2 mg .ROUTE .STK-MED ONE Stop: 07/14/19 09:24 Morphine Sulfate (Morphine) 1 - 3 mg IVPUSH Q3H PRN PRN Reason: Pain Last Admin: 07/14/19 16:58 Dose: 2 mg Ondansetron HCl (Zofran) 4 mg IVPUSH Q6H PRN PRN Reason: Nausea/Vomiting Febuxostat 40 Mg 1 each PO DAILY [facility] Last Admin: 07/17/19 09:07 Dose: 1 each Phenylephrine HCl (Phenylephrine In Ns 100 Mcg/Ml) Confirm Administered Dose 1 mg .ROUTE .STK-MED ONE Stop: 07/14/19 11:25 Polyethylene Glycol (Miralax) 17 gm PO DAILY [facility] Last Admin: 07/17/19 09:05 Dose: Not Given Propofol (Diprivan 20 Ml) Confirm Administered Dose 400 mg .ROUTE .STK-MED ONE Stop: 07/14/19 10:02 Sodium Chloride (Saline Flush) 10 ml FLUSH ASDIRECTED PRN PRN Reason: Keep Vein Open Sodium Chloride (Saline Flush) 2.5 ml FLUSH ASDIRECTED PRN PRN Reason: Keep Vein Open Tranexamic Acid (Cyklokapron) 2,000 mg IV ONETIME ONE Stop: 07/14/19 10:01 Last Admin: 07/14/19 13:16 Dose: Not Given Tranexamic Acid (Cyklokapron) Confirm Administered Dose 1,000 mg .ROUTE .STK- MED ONE Stop: 07/14/19 08:22 Tranexamic Acid (Cyklokapron) Confirm Administered Dose 1,000 mg .ROUTE .STK- MED ONE Stop: 07/14/19 08:25 Verapamil HCl (Calan Sr) 180 mg PO BEDTIME [facility]STOP[facility] Last Admin: 07/16/19 21:10 Dose: 180 mg Consult PN Assessment/Plan Procedures: Procedures ASSAY OF AMYLASE (08/31/16) ASSAY OF CK (CPK) (03/19/19) ASSAY OF LACTIC ACID (03/19/19) ASSAY OF LIPASE (03/19/19) ASSAY OF TROPONIN QUANT (03/19/19) ASSAY THYROID STIM HORMONE (12/19/17) BLOOD CULTURE FOR BACTERIA (03/19/19) CHEST X-RAY 2VW FRONTAL&LATL (07/05/15) COMPLETE CBC AUTOMATED (04/22/14) COMPLETE CBC W/AUTO DIFF WBC (06/22/19) COMPREHEN METABOLIC PANEL (06/22/19) CT ABD & PELVIS W/O CONTRAST (08/31/16) CT HEAD/BRAIN W/O DYE (03/19/19) CT NECK SPINE W/O DYE (03/19/19) CULTURE SCREEN ONLY (02/15/17) DRAIN/INJ JOINT/BURSA W/O US (11/06/18) ECHO EXAM OF ABDOMEN (08/31/16) ELECTROCARDIOGRAM TRACING (06/22/19) EMERGENCY DEPT VISIT (03/19/19) EMERGENCY DEPT VISIT (02/15/17) GLUCOSE BLOOD TEST (03/19/19) GLYCOSYLATED HEMOGLOBIN TEST (06/22/19) HOT OR COLD PACKS THERAPY (08/02/16) HYDRATE IV INFUSION ADD-ON (03/19/19) LIPID PANEL (09/19/18) MANUAL THERAPY 1/> REGIONS (08/02/16) METABOLIC PANEL TOTAL CA (03/19/19) MICROBE SUSCEPTIBLE EMELIA (04/03/19) MRI BRAIN STEM W/O DYE (01/14/18) MRI LUMBAR SPINE W/O DYE (01/14/18) NEEDLE LOCALIZATION BY XRAY (11/06/18) OFFICE/OUTPATIENT VISIT EST (06/22/19) OFFICE/OUTPATIENT VISIT EST (03/17/19) OFFICE/OUTPATIENT VISIT EST (10/12/16) OFFICE/OUTPATIENT VISIT EST (03/04/14) PROTEIN E-PHORESIS SERUM (06/08/16) PROTHROMBIN TIME (06/22/19) PSYCH DIAG EVAL W/MED SRVCS (05/16/17) PT EVAL LOW COMPLEX 20 MIN (03/19/19) PT EVALUATION (07/09/16) ROUTINE VENIPUNCTURE (06/22/19) STREP A ASSAY W/OPTIC (02/15/17) THER/PROPH/DIAG IV INF ADDON (03/19/19) THER/PROPH/DIAG IV INF INIT (03/19/19) THERAPEUTIC ACTIVITIES (03/19/19) THERAPEUTIC EXERCISES (03/19/19) TX/PRO/DX INJ SAME DRUG PROCESS INSPECTOR (03/19/19) UR ALBUMIN SEMIQUANTITATIVE (03/02/16) URINALYSIS AUTO W/O SCOPE (06/22/19) URINALYSIS AUTO W/SCOPE (04/28/19) URINE BACTERIA CULTURE (04/03/19) URINE CULTURE/COLONY COUNT (04/28/19) VITAMIN B-12 (12/19/17) X-RAY EXAM CHEST 1 VIEW (03/19/19) X-RAY EXAM CHEST 2 VIEWS (06/22/19) X-RAY EXAM HIP UNI 2-3 VIEWS (09/19/18) X-RAY EXAM L-S SPINE 2/3 VWS (06/08/16) X-RAY EXAM OF PELVIS (03/19/19)
--- NOTE | 2019-07-21 16:16 | CR ---
Left hip: Two fluoroscopic spot views of the left hip were obtained utilizing C- arm device. Single fluoroscopic spot view of the right hip was obtained. Comparison: No previous study is available. Medial joint space narrowing is noted within the right hip. Left hip prosthesis is seen. Components are aligned. Soft tissue air is noted from the surgical procedure. No discrete underlying bony abnormality is seen. Impression: 1. Procedural study as noted above. 2. Medial joint space narrowing within the right hip. Diagnostic code #2 [id number]
== END 2019-07-17 11:55 | DRG 470 ==
LOC: MW.MS 08:31
PROVIDERS: ADMIT Orthopaedic Surgery; ATTEND Orthopaedic Surgery
PROC: 0SRB0JA Replacement of Left Hip Joint with Synthetic Substitute, Uncemented, Open Approach (ICD-10-PCS; principal; 2019-07-14)
DX: M16.12 Unilateral primary osteoarthritis, left hip (principal); F41.9 Anxiety disorder, unspecified; R94.4 Abnormal results of kidney function studies; F32.9 Major depressive disorder, single episode, unspecified; E78.5 Hyperlipidemia, unspecified; M79.7 Fibromyalgia; K21.9 Gastro-esophageal reflux disease without esophagitis; M10.9 Gout, unspecified; I10 Essential (primary) hypertension; E11.51 Type 2 diabetes mellitus with diabetic peripheral angiopathy without gangrene; E78.00 Pure hypercholesterolemia, unspecified; E11.42 Type 2 diabetes mellitus with diabetic polyneuropathy; G43.909 Migraine, unspecified, not intractable, without status migrainosus; Z79.82 Long term (current) use of aspirin; Z79.84 Long term (current) use of oral hypoglycemic drugs; Z79.899 Other long term (current) drug therapy; Z87.19 Personal history of other diseases of the digestive system; Z90.49 Acquired absence of other specified parts of digestive tract; Z90.89 Acquired absence of other organs; Z87.891 Personal history of nicotine dependence
CPT/HCPCS: 36415; 76000; 76000-26; 80048; 81003; 82962; 83735; 85014; 85018; 85025; 88305; 88311; 97110-GP; 97161-GP; A9270-GY; C1776; J0690; J2001; J2250; J2270; J2370; J2704; J3010; J7120

== ENCOUNTER 2021-12-27 12:47 | Emergency (ER) | payer MEDICARE, BC ==
[2021-12-27] MEDS ORDERED: Sodium Chloride 0.9% 10 ML Syringe FLUSH PRN (13:17)
[2021-12-27] MEDS ORDERED: Sodium Chloride 0.9% 2.5 ML Syringe FLUSH PRN (13:17)
[2021-12-27] MEDS ORDERED: Sodium Chloride 0.9% 500 ML IV STA (13:24)
[2021-12-27 14:50] LABS: BLOOD UREA NITROGEN,BUN 32 mg/dL (7.0-18.0); CARBON DIOXIDE,CO2 28.6 mmol/L (21.0-32.0); CHLORIDE,CL 100 mmol/L (98-107); GLUCOSE RANDOM 154 mg/dL (74-106); POTASSIUM,K 4.2 mmol/L (3.5-5.1); SODIUM,NA 140 mmol/L (136-145)
[2021-12-27 14:53] LABS: CORONAVIRUS COVID-19 NAA NEGATIVE (NEGATIVE); INFLUENZA A NAA NEGATIVE (NEGATIVE); INFLUENZA B NAA NEGATIVE (NEGATIVE)
[2021-12-27 19:47] VITALS: BP 170/76; PULSE 78
== END 2021-12-27 19:59 | disposition home or self-care (01) ==
LOC: MW.ED 12:47
DX: R10.9 Unspecified abdominal pain (principal); I10 Essential (primary) hypertension; K21.9 Gastro-esophageal reflux disease without esophagitis; E11.42 Type 2 diabetes mellitus with diabetic polyneuropathy; Z79.899 Other long term (current) drug therapy; Z20.822 Contact with and (suspected) exposure to COVID-19
CPT/HCPCS: 0240U; 36415; 70450; 71045; 74176; 80053; 81001; 83735; 84484; 85025; 93005; 99284; J7040; 93010; 99283